=== PATIENT | male | born 1935 | race Caucasian/White ===

== ENCOUNTER → 2023-03-07 10:00 | Inpatient (IN) | payer MEDICAID, SELFPAY ==
[2022-01-11] MEDS: SENNOSIDES 1 TAB TABLET 2 TAB PO ×2 (07:31→19:17)
[2022-01-11] MEDS: ACETAMINOPHEN 650 MG TABLET ER 1300 MG PO ×2 (07:31→15:21)
[2022-01-11] MEDS: LEVOTHYROXINE SODIUM 150 MCG TABLET PO (07:37)
[2022-01-11 09:24] VITALS: TEMP 35.8; O2SAT 96
[2022-01-11 09:25] VITALS: BP 148/81; PULSE 68; RESP 22; TEMP 35.8; O2SAT 96
--- NOTE | 2022-01-11 13:28 | PC.NURSE ---
Bath/Skin: Skin assessed, no issues noted at this time. Skin warm, dry, intact. Lotion applied.
[2022-01-11] MEDS: MELATONIN 3 MG TABLET PO (19:15)
[2022-01-12] MEDS: LEVOTHYROXINE SODIUM 150 MCG TABLET PO (07:36)
[2022-01-12] MEDS: ACETAMINOPHEN 650 MG TABLET ER 1300 MG PO ×2 (07:37→16:47)
[2022-01-12] MEDS: SENNOSIDES 1 TAB TABLET 2 TAB PO ×2 (07:38→20:22)
[2022-01-12 10:00] VITALS: TEMP 36.3; O2SAT 94
[2022-01-12] MEDS: MELATONIN 3 MG TABLET PO (20:21)
[2022-01-12] MEDS: NYSTATIN POWDER 1 APPLIC TOPICAL (21:23)
[2022-01-13] MEDS: ACETAMINOPHEN 650 MG TABLET ER 1300 MG PO ×2 (07:25→15:19)
[2022-01-13] MEDS: LEVOTHYROXINE SODIUM 150 MCG TABLET PO (07:25)
[2022-01-13] MEDS: NYSTATIN POWDER 1 APPLIC TOPICAL ×2 (07:26→19:24)
[2022-01-13] MEDS: SENNOSIDES 1 TAB TABLET 2 TAB PO ×2 (07:26→19:24)
[2022-01-13 10:00] VITALS: TEMP 36; O2SAT 96
--- NOTE | 2022-01-13 10:59 | PC.PHA ---
Pharmacy Review ~ Patient continues on levothyroxine with recent MD note of plan for TSH level. Scheduled acetaminophen for pain.
[2022-01-13] MEDS: MELATONIN 3 MG TABLET PO (19:24)
[2022-01-14] MEDS: SENNOSIDES 1 TAB TABLET 2 TAB PO ×2 (07:18→19:09)
[2022-01-14] MEDS: LEVOTHYROXINE SODIUM 150 MCG TABLET PO (07:18)
[2022-01-14] MEDS: ACETAMINOPHEN 650 MG TABLET ER 1300 MG PO ×2 (07:18→15:05)
[2022-01-14] MEDS: NYSTATIN POWDER 1 APPLIC TOPICAL ×2 (07:18→19:09)
[2022-01-14 10:00] VITALS: TEMP 36.6; O2SAT 95
[2022-01-14] MEDS: MELATONIN 3 MG TABLET PO (19:09)
[2022-01-15] MEDS: LEVOTHYROXINE SODIUM 150 MCG TABLET PO (06:54)
[2022-01-15] MEDS: NYSTATIN POWDER 1 APPLIC TOPICAL ×2 (08:15→19:09)
[2022-01-15] MEDS: ACETAMINOPHEN 650 MG TABLET ER 1300 MG PO ×2 (08:15→15:07)
[2022-01-15] MEDS: SENNOSIDES 1 TAB TABLET 2 TAB PO ×2 (08:16→19:09)
[2022-01-15 10:00] VITALS: TEMP 36.5; O2SAT 95
--- NOTE | 2022-01-15 12:51 | PC.NURSE ---
Bath Update: After three attempts and encouragements resident refused scheduled 2nd bath.
[2022-01-15] MEDS: MELATONIN 3 MG TABLET PO (19:08)
[2022-01-16] MEDS: LEVOTHYROXINE SODIUM 150 MCG TABLET PO (06:58)
[2022-01-16] MEDS: ACETAMINOPHEN 650 MG TABLET ER 1300 MG PO ×2 (07:01→14:58)
[2022-01-16] MEDS: NYSTATIN POWDER 1 APPLIC TOPICAL ×2 (07:01→19:10)
[2022-01-16] MEDS: SENNOSIDES 1 TAB TABLET 2 TAB PO ×2 (07:01→19:11)
[2022-01-16 10:00] VITALS: TEMP 36.9; O2SAT 97
[2022-01-16] MEDS: MELATONIN 3 MG TABLET PO (19:10)
[2022-01-17] MEDS: LEVOTHYROXINE SODIUM 150 MCG TABLET PO (07:29)
[2022-01-17] MEDS: SENNOSIDES 1 TAB TABLET 2 TAB PO ×2 (07:29→19:10)
[2022-01-17] MEDS: ACETAMINOPHEN 650 MG TABLET ER 1300 MG PO ×2 (07:29→15:10)
[2022-01-17] MEDS: NYSTATIN POWDER 1 APPLIC TOPICAL (07:30)
[2022-01-17 10:00] VITALS: TEMP 36.4; O2SAT 94
--- NOTE | 2022-01-17 10:21 | PC.NURSE ---
Skin: (R) groin redness resolved. Put on the CELL TUBER HAND to change Nystatin powder to PRN.
[2022-01-17] MEDS: MELATONIN 3 MG TABLET PO (19:10)
--- NOTE | 2022-01-18 01:16 | PC.NURSE ---
Week #1- Care Plan problems - reviewed, no changes or additions made. Resident sleeps through the night. Staff set him up with a grape juice every night that he drinks on own through out the night. will occasionally ask for a warm blanket. Receives scheduled Tylenol 1300mg Bid.
[2022-01-18] MEDS: ACETAMINOPHEN 650 MG TABLET ER 1300 MG PO ×2 (07:33→16:02)
[2022-01-18] MEDS: LEVOTHYROXINE SODIUM 150 MCG TABLET PO (07:33)
[2022-01-18] MEDS: SENNOSIDES 1 TAB TABLET 2 TAB PO ×2 (07:34→19:13)
[2022-01-18 13:22] VITALS: TEMP 36.4; O2SAT 95
--- NOTE | 2022-01-18 14:35 | PC.NURSE ---
Week 1: Care plan problems 1-19 reviewed. Temporary care plan reviewed. No changes made. One staff assist required for dressing, grooming, hygiene and oral care. No changes in eating habits. Continues on regular diet. Able to feed self. Pain summary: No complaints of pain in past month. Continues on Tylenol 1300mg PO BID.
[2022-01-18 19:08] VITALS: BP 119/81; PULSE 67; RESP 12; TEMP 36.7; O2SAT 91
[2022-01-18] MEDS: MELATONIN 3 MG TABLET PO (19:13)
[2022-01-19] MEDS: ACETAMINOPHEN 650 MG TABLET ER 1300 MG PO ×2 (07:32→16:54)
[2022-01-19] MEDS: LEVOTHYROXINE SODIUM 150 MCG TABLET PO (07:32)
[2022-01-19] MEDS: SENNOSIDES 1 TAB TABLET 2 TAB PO ×2 (07:33→19:21)
[2022-01-19 10:31] VITALS: TEMP 36.4; O2SAT 96
--- NOTE | 2022-01-19 11:04 | PC.NURSE ---
Fall Risk Assessment: Orientation? Intermittent confusion Falls in the last quarter? None Ambulation/Elimination status? Ambulatory, continent Vision status? None Gait/balance? Requires assistive device High risk meds? 1-2 taken in past 7 days Diseases/fall risk? 1-2 present Total Score: 9 - low fall risk
[2022-01-19 14:01] VITALS: BMI 28.1
[2022-01-19] MEDS: NYSTATIN POWDER 1 APPLIC TOPICAL (19:21)
[2022-01-19] MEDS: MELATONIN 3 MG TABLET PO (19:21)
[2022-01-20] MEDS: NYSTATIN POWDER 1 APPLIC TOPICAL (07:21)
[2022-01-20] MEDS: SENNOSIDES 1 TAB TABLET 2 TAB PO ×2 (07:21→19:09)
[2022-01-20] MEDS: LEVOTHYROXINE SODIUM 150 MCG TABLET PO (07:21)
[2022-01-20] MEDS: ACETAMINOPHEN 650 MG TABLET ER 1300 MG PO ×2 (07:21→15:34)
[2022-01-20 10:31] VITALS: TEMP 36.6; O2SAT 94
--- NOTE | 2022-01-20 12:08 | REH.OT ---
Hot liquid assessment Due to patient's cognitive impairments, hot liquids should only be consumed at a table.
--- NOTE | 2022-01-20 12:27 | PC.NURSE ---
Order: Nystatin powder changed to BID PRN by Arturo ODELL.
[2022-01-20] MEDS: MELATONIN 3 MG TABLET PO (19:09)
[2022-01-21] MEDS: ACETAMINOPHEN 650 MG TABLET ER 1300 MG PO ×2 (07:20→15:37)
[2022-01-21] MEDS: SENNOSIDES 1 TAB TABLET 2 TAB PO ×2 (07:20→19:21)
[2022-01-21] MEDS: LEVOTHYROXINE SODIUM 150 MCG TABLET PO (07:20)
[2022-01-21 08:39] LABS: Thyroid Stimulating Hormone* 0.215 uIU/mL (0.270-4.20)
[2022-01-21 10:00] VITALS: TEMP 36.8; O2SAT 96
--- NOTE | 2022-01-21 10:05 | PC.NURSE ---
Podiatry: Resident seen by In House Curriculum Facilitator on 01/20/22.
--- NOTE | 2022-01-21 10:50 | PC.NURSE ---
TSH/Order: TSH result reviewed by Dr. Collier. Order: D/C any future TSH orders if any, decrease Synthroid to 137 mcg daily, check TSH on 2021.
[2022-01-21] MEDS: MELATONIN 3 MG TABLET PO (19:21)
[2022-01-22] MEDS: LEVOTHYROXINE 25 MCG TABLET 137 MCG PO (07:02)
[2022-01-22] MEDS: ACETAMINOPHEN 650 MG TABLET ER 1300 MG PO ×2 (07:46→16:09)
[2022-01-22] MEDS: SENNOSIDES 1 TAB TABLET 2 TAB PO ×2 (07:46→19:41)
[2022-01-22 10:00] VITALS: TEMP 36.8; O2SAT 95
[2022-01-22] MEDS: MELATONIN 3 MG TABLET PO (19:41)
[2022-01-23] MEDS: LEVOTHYROXINE 25 MCG TABLET 137 MCG PO (06:53)
[2022-01-23] MEDS: SENNOSIDES 1 TAB TABLET 2 TAB PO ×2 (07:09→19:16)
[2022-01-23] MEDS: ACETAMINOPHEN 650 MG TABLET ER 1300 MG PO ×2 (07:09→15:38)
[2022-01-23 10:00] VITALS: TEMP 36.6; O2SAT 96
[2022-01-23] MEDS: MELATONIN 3 MG TABLET PO (19:16)
[2022-01-24] MEDS: LEVOTHYROXINE 25 MCG TABLET 137 MCG PO (07:27)
[2022-01-24] MEDS: SENNOSIDES 1 TAB TABLET 2 TAB PO ×2 (08:33→19:26)
[2022-01-24] MEDS: ACETAMINOPHEN 650 MG TABLET ER 1300 MG PO ×2 (08:33→15:43)
[2022-01-24 10:51] VITALS: TEMP 36.1; O2SAT 95
[2022-01-24] MEDS: MELATONIN 3 MG TABLET PO (19:26)
--- NOTE | 2022-01-25 03:19 | PC.NURSE ---
Week #2---care plan problems #20-29 reviewed. No changes made. Nothing added to temporary care plan. Remains independent with bed mobility, transfers, and ambulation at [facility]. Uses top siderails and a walker for assist. Falls---no falls this past month. Remains a low fall risk according to assessment done on 01/19/22.
[2022-01-25] MEDS: SENNOSIDES 1 TAB TABLET 2 TAB PO ×2 (07:34→19:06)
[2022-01-25] MEDS: LEVOTHYROXINE 25 MCG TABLET 137 MCG PO (07:34)
[2022-01-25] MEDS: ACETAMINOPHEN 650 MG TABLET ER 1300 MG PO ×2 (07:34→15:08)
--- NOTE | 2022-01-25 08:56 | PC.NURSE ---
Week 2 - care plan items 20-29 reviewed. No changes made. No additions to temporary care plan. Resident independent with ambulation using 4ww in room and hallways, bed mobility, and transfers. Fall: No falls for the previous months. Low fall risk according to assessment done on 01/19/22.
[2022-01-25 10:24] VITALS: BP 87/56; PULSE 65; RESP 24; TEMP 36.3; O2SAT 92
--- NOTE | 2022-01-25 13:00 | PC.NURSE ---
CARE CONFERENCE: Nursing, Activities, Dietary and Social Service team present. present via phone. asked that resident not be present. Reviewed ADLS, transfers and mobility. Resident has been more accepting of ADL assistance since last CC. She would like to have him bathed twice weekly. Continues to be reminded that it is time to brush teeth, shave, and change his clothes each morning/evening. Resident is independent with transfers, bed mobility and ambulation. Use of walker. Reminders needed to use. High fall risk. Resident can become easily agitated and becomes fixated on topics such as how much he pays for his room, or why his does not live with him. May need to redirect. Resident has dementia. Resident likes to eat breakfast in his room. Will choose if he wants to come out for lunch or dinner. Resident has been coming out more frequently for activities the past 3 months. Especially enjoys bingo. He also enjoys watching baseball games on the TV in his room. is happy to hear this. Nursing gives all medications. declines a copy of medi Care plan reviewed and updated. POLST reviewed. Is DNR/DNI. Uses no restraints. Does use 2 side rails up to assist with positioning. Vulnerability- is at risk for being harmed due to weakness and balance. No plans for discharge. No questions/concerns at this time. Staff updated with new plan of care.
--- NOTE | 2022-01-25 14:11 | PC.SOCIAL ---
Resident's care conference was held today. Resident's spouse Louann attended via phone with all members of the team present. Louann and staff have noticed an increase in resident's confusion and memory. Louann states resident's long-term memory has now been affected and resident does not remember his siblings anymore. Resident has been coming out for more activities and is changing clothes for staff, which Louann is thrilled about. Louann is pleased that resident still remembers to call her every day at 5pm to chat. No s/s of depression noted resident's mood remains stable.
[2022-01-25] MEDS: MELATONIN 3 MG TABLET PO (19:06)
[2022-01-25 23:00] VITALS: TEMP 36.5; O2SAT 96
[2022-01-26] MEDS: LEVOTHYROXINE 25 MCG TABLET 137 MCG PO (07:31)
[2022-01-26] MEDS: ACETAMINOPHEN 650 MG TABLET ER 1300 MG PO ×2 (07:31→16:18)
[2022-01-26] MEDS: SENNOSIDES 1 TAB TABLET 2 TAB PO ×2 (07:31→19:48)
[2022-01-26 09:54] VITALS: TEMP 36.2; O2SAT 96
[2022-01-26] MEDS: MELATONIN 3 MG TABLET PO (19:48)
[2022-01-26 22:08] VITALS: TEMP 36.2; O2SAT 98
[2022-01-26 23:00] VITALS: TEMP 36.4; O2SAT 94
[2022-01-27] MEDS: LEVOTHYROXINE 25 MCG TABLET 137 MCG PO (06:35)
[2022-01-27 07:00] VITALS: TEMP 36.6; O2SAT 95
[2022-01-27] MEDS: ACETAMINOPHEN 650 MG TABLET ER 1300 MG PO ×2 (07:34→15:11)
[2022-01-27] MEDS: SENNOSIDES 1 TAB TABLET 2 TAB PO ×2 (07:34→19:40)
[2022-01-27 16:40] VITALS: TEMP 36.7; O2SAT 96
[2022-01-27 19:29] LABS: SARS PCR* Negative SARS-CoV-2 (Negative)
[2022-01-27] MEDS: MELATONIN 3 MG TABLET PO (19:40)
[2022-01-27 23:00] VITALS: TEMP 36.6; O2SAT 94
[2022-01-28] MEDS: LEVOTHYROXINE 25 MCG TABLET 137 MCG PO (06:44)
[2022-01-28 07:00] VITALS: TEMP 36.6; O2SAT 96
[2022-01-28] MEDS: SENNOSIDES 1 TAB TABLET 2 TAB PO ×2 (07:58→19:01)
[2022-01-28] MEDS: ACETAMINOPHEN 650 MG TABLET ER 1300 MG PO ×2 (07:58→15:18)
--- NOTE | 2022-01-28 14:32 | PC.NURSE ---
Change in dinning seat: Resident C/O current sitting position at the dinning room, and want a change. According to him, he is not comfortable with sitting at the same table with resident in room number 223. This software writer has assigned new table to him: he is to be seated at the dinner table with residents in room # 236 and #221. He appears to be pleased with that. IN TUBE CONVERSION TECHNICIAN is updated.
[2022-01-28 17:22] VITALS: TEMP 36.3; O2SAT 99
[2022-01-28] MEDS: MELATONIN 3 MG TABLET PO (19:01)
[2022-01-28 23:00] VITALS: TEMP 36.4; O2SAT 97
[2022-01-29] MEDS: LEVOTHYROXINE 25 MCG TABLET 137 MCG PO (06:46)
[2022-01-29 07:00] VITALS: TEMP 36.8; O2SAT 95
[2022-01-29] MEDS: ACETAMINOPHEN 650 MG TABLET ER 1300 MG PO ×2 (08:37→15:16)
[2022-01-29] MEDS: SENNOSIDES 1 TAB TABLET 2 TAB PO ×2 (08:37→19:03)
[2022-01-29 17:05] VITALS: TEMP 36.2; O2SAT 97
[2022-01-29] MEDS: MELATONIN 3 MG TABLET PO (19:03)
[2022-01-30 00:01] VITALS: TEMP 36.4; O2SAT 96
[2022-01-30] MEDS: LEVOTHYROXINE 25 MCG TABLET 137 MCG PO (06:53)
[2022-01-30 07:00] VITALS: TEMP 36.9; O2SAT 95
[2022-01-30] MEDS: SENNOSIDES 1 TAB TABLET 2 TAB PO ×2 (07:42→19:31)
[2022-01-30] MEDS: ACETAMINOPHEN 650 MG TABLET ER 1300 MG PO ×2 (07:42→15:33)
[2022-01-30 16:54] VITALS: TEMP 36.8; O2SAT 95
[2022-01-30] MEDS: MELATONIN 3 MG TABLET PO (19:31)
[2022-01-30 23:00] VITALS: TEMP 36.6; O2SAT 94
[2022-01-31] MEDS: ACETAMINOPHEN 650 MG TABLET ER 1300 MG PO ×2 (07:42→15:37)
[2022-01-31] MEDS: LEVOTHYROXINE 25 MCG TABLET 137 MCG PO (07:42)
[2022-01-31] MEDS: SENNOSIDES 1 TAB TABLET 2 TAB PO ×2 (07:42→19:18)
[2022-01-31 12:26] VITALS: TEMP 36.6; O2SAT 95
[2022-01-31 15:00] VITALS: TEMP 36.6; O2SAT 95
[2022-01-31 17:17] LABS: SARS PCR* Negative SARS-CoV-2 (Negative)
[2022-01-31] MEDS: MELATONIN 3 MG TABLET PO (19:18)
[2022-01-31 23:00] VITALS: TEMP 36.6; O2SAT 95
--- NOTE | 2022-02-01 02:59 | PC.NURSE ---
Week #3---care plan problems #30-39 reviewed. No changes made. Nothing added to temporary care plan. Remains independent with toileting at [facility]. Ambulates to with walker. Manages own clothing and pericares. Skin---no issues at this time.
[2022-02-01] MEDS: LEVOTHYROXINE 25 MCG TABLET 137 MCG PO (07:04)
[2022-02-01] MEDS: ACETAMINOPHEN 650 MG TABLET ER 1300 MG PO (07:05)
[2022-02-01] MEDS: SENNOSIDES 1 TAB TABLET 2 TAB PO ×2 (07:05→19:02)
[2022-02-01 11:02] VITALS: TEMP 36.3; O2SAT 95
--- NOTE | 2022-02-01 11:03 | PC.NURSE ---
Skin assessment - No bruising or redness noted on skin. Skin is intact, dry, warm, and appropriate color. Pt had no concerns.
--- NOTE | 2022-02-01 11:45 | PC.NURSE ---
Week #3: Care plan problems 30-39 and temporary care plan reviewed. No changes made. Nothing added to temporary care plan. Resident is independent with toileting and is continent of bowel and bladder. Wears pull ups. Pads, tyshawn cares, clothing adjustment managed by self. Ambulates to the bathroom with a walker. Skin: No issues at this time. Skin is checked routinely during baths.
[2022-02-01 17:08] VITALS: BP 120/71; PULSE 51; RESP 14; TEMP 36.4; O2SAT 93
[2022-02-01] MEDS: MELATONIN 3 MG TABLET PO (19:02)
[2022-02-01 23:00] VITALS: TEMP 36.5; O2SAT 94
[2022-02-02] MEDS: SENNOSIDES 1 TAB TABLET 2 TAB PO ×2 (07:32→19:16)
[2022-02-02] MEDS: LEVOTHYROXINE 25 MCG TABLET 137 MCG PO (07:32)
[2022-02-02] MEDS: ACETAMINOPHEN 650 MG TABLET ER 1300 MG PO ×2 (07:32→15:18)
[2022-02-02 10:20] VITALS: TEMP 36.8; O2SAT 96
--- NOTE | 2022-02-02 12:45 | PC.PHA ---
Pharmacy Review ~ Patient had decrease of levothyroxine in January based on TSH result from 01/21/22. Pain regimen of acetaminophen 1300 mg bid continues and is only pain medication ordered.
[2022-02-02] MEDS: MELATONIN 3 MG TABLET PO (19:16)
[2022-02-02 21:20] VITALS: TEMP 36.3; O2SAT 96
[2022-02-02 23:00] VITALS: TEMP 36.4; O2SAT 95
[2022-02-03 07:00] VITALS: TEMP 36.6; O2SAT 95
[2022-02-03] MEDS: SENNOSIDES 1 TAB TABLET 2 TAB PO ×2 (07:08→19:22)
[2022-02-03] MEDS: ACETAMINOPHEN 650 MG TABLET ER 1300 MG PO ×2 (07:08→15:33)
[2022-02-03] MEDS: LEVOTHYROXINE 25 MCG TABLET 137 MCG PO (07:08)
--- NOTE | 2022-02-03 10:03 | PC.SPIRITC ---
Complaint Coordinator provided visit for support and connection.
[2022-02-03] MEDS: MELATONIN 3 MG TABLET PO (19:22)
[2022-02-03 21:14] VITALS: TEMP 36.3; O2SAT 97
[2022-02-03 23:00] VITALS: TEMP 36.6; O2SAT 96
[2022-02-04 07:00] VITALS: TEMP 36.6; O2SAT 96
[2022-02-04] MEDS: SENNOSIDES 1 TAB TABLET 2 TAB PO ×2 (07:19→19:13)
[2022-02-04] MEDS: LEVOTHYROXINE 25 MCG TABLET 137 MCG PO (07:19)
[2022-02-04] MEDS: ACETAMINOPHEN 650 MG TABLET ER 1300 MG PO (07:19)
[2022-02-04 18:31] VITALS: TEMP 36.9; O2SAT 96
[2022-02-04] MEDS: MELATONIN 3 MG TABLET PO (19:13)
[2022-02-04 23:00] VITALS: TEMP 36.4; O2SAT 94
[2022-02-05] MEDS: LEVOTHYROXINE 25 MCG TABLET 137 MCG PO (06:51)
[2022-02-05 07:00] VITALS: TEMP 36.8; O2SAT 96
[2022-02-05] MEDS: ACETAMINOPHEN 650 MG TABLET ER 1300 MG PO ×2 (08:35→15:00)
[2022-02-05] MEDS: SENNOSIDES 1 TAB TABLET 2 TAB PO ×2 (08:35→19:11)
[2022-02-05 16:33] VITALS: TEMP 36.7; O2SAT 95
[2022-02-05] MEDS: MELATONIN 3 MG TABLET PO (19:11)
[2022-02-05 23:00] VITALS: TEMP 36.4; O2SAT 93
[2022-02-06] MEDS: LEVOTHYROXINE 25 MCG TABLET 137 MCG PO (06:56)
[2022-02-06 07:00] VITALS: TEMP 36.8; O2SAT 95
[2022-02-06] MEDS: ACETAMINOPHEN 650 MG TABLET ER 1300 MG PO ×2 (08:49→15:34)
[2022-02-06] MEDS: SENNOSIDES 1 TAB TABLET 2 TAB PO ×2 (08:50→19:00)
[2022-02-06] MEDS: MELATONIN 3 MG TABLET PO (19:00)
[2022-02-06 20:17] VITALS: TEMP 36.8; O2SAT 96
[2022-02-06 23:00] VITALS: TEMP 35.9; O2SAT 92
[2022-02-07] MEDS: SENNOSIDES 1 TAB TABLET 2 TAB PO ×2 (07:21→19:31)
[2022-02-07] MEDS: ACETAMINOPHEN 650 MG TABLET ER 1300 MG PO ×2 (07:21→16:49)
[2022-02-07] MEDS: LEVOTHYROXINE 25 MCG TABLET 137 MCG PO (07:21)
[2022-02-07 10:23] VITALS: TEMP 36.2; O2SAT 95
[2022-02-07 13:03] LABS: SARS PCR* Negative SARS-CoV-2 (Negative)
[2022-02-07 15:00] VITALS: TEMP 36.5; O2SAT 96
[2022-02-07] MEDS: MELATONIN 3 MG TABLET PO (19:31)
[2022-02-07 23:00] VITALS: TEMP 36.6; O2SAT 94
--- NOTE | 2022-02-08 03:24 | PC.NURSE ---
Week #4---care plan problems #40+ reviewed. No changes made. Nothing added to temporary care plan. Can use call light for needs. No changes noted in hearing, vision, or orientation. No behavior problems at [facility]. Sleeps well. Is on no psychotropic meds.
--- NOTE | 2022-02-08 07:25 | PC.NURSE ---
Week #4: Care plan problems 40-119 and temporary care plan reviewed. No changes made. No additions to temporary care plan. No change in communication, hearing, vision, or orientation. Is able to make his needs known and use the call light. Wears glasses. Has hearing impairment, no hearing device. Has cognitive deficits d/t dementia. Chronic health condition stable. Does not self administer medications. Behavior/Mood: No issues. Is on no psychotropic medications.
[2022-02-08] MEDS: SENNOSIDES 1 TAB TABLET 2 TAB PO ×2 (08:17→19:17)
[2022-02-08] MEDS: LEVOTHYROXINE 25 MCG TABLET 137 MCG PO (08:17)
[2022-02-08] MEDS: ACETAMINOPHEN 650 MG TABLET ER 1300 MG PO ×2 (08:17→15:59)
[2022-02-08 10:07] VITALS: BP 138/73; PULSE 60; RESP 14; TEMP 36.2; O2SAT 95
[2022-02-08 15:00] VITALS: TEMP 36.6; O2SAT 97
[2022-02-08] MEDS: MELATONIN 3 MG TABLET PO (19:17)
[2022-02-08 21:11] VITALS: BP 132/76; PULSE 65; RESP 18; TEMP 36.6; O2SAT 97
[2022-02-08 23:00] VITALS: TEMP 36.4; O2SAT 95
[2022-02-09] MEDS: LEVOTHYROXINE 25 MCG TABLET 137 MCG PO (08:00)
[2022-02-09] MEDS: ACETAMINOPHEN 650 MG TABLET ER 1300 MG PO ×2 (08:54→16:05)
[2022-02-09] MEDS: SENNOSIDES 1 TAB TABLET 2 TAB PO ×2 (08:54→19:18)
[2022-02-09 11:07] VITALS: TEMP 36.6; O2SAT 95
[2022-02-09] MEDS: MELATONIN 3 MG TABLET PO (19:18)
[2022-02-10] MEDS: SENNOSIDES 1 TAB TABLET 2 TAB PO ×2 (07:18→19:08)
[2022-02-10] MEDS: LEVOTHYROXINE 25 MCG TABLET 137 MCG PO (07:18)
[2022-02-10] MEDS: ACETAMINOPHEN 650 MG TABLET ER 1300 MG PO ×2 (07:18→15:33)
[2022-02-10 08:00] VITALS: TEMP 36.7; O2SAT 95
[2022-02-10] MEDS: MELATONIN 3 MG TABLET PO (19:08)
[2022-02-11] MEDS: LEVOTHYROXINE 25 MCG TABLET 137 MCG PO (07:15)
[2022-02-11] MEDS: ACETAMINOPHEN 650 MG TABLET ER 1300 MG PO ×2 (07:16→15:34)
[2022-02-11] MEDS: SENNOSIDES 1 TAB TABLET 2 TAB PO ×2 (07:16→19:30)
[2022-02-11 08:00] VITALS: TEMP 36.6; O2SAT 97
[2022-02-11] MEDS: MELATONIN 3 MG TABLET PO (19:30)
[2022-02-12] MEDS: LEVOTHYROXINE 25 MCG TABLET 137 MCG PO (07:47)
[2022-02-12] MEDS: ACETAMINOPHEN 650 MG TABLET ER 1300 MG PO ×2 (07:48→16:05)
[2022-02-12] MEDS: SENNOSIDES 1 TAB TABLET 2 TAB PO ×2 (07:48→19:14)
[2022-02-12 11:10] VITALS: TEMP 36.7; O2SAT 91
[2022-02-12] MEDS: MELATONIN 3 MG TABLET PO (19:14)
[2022-02-13] MEDS: ACETAMINOPHEN 650 MG TABLET ER 1300 MG PO ×2 (07:02→15:27)
[2022-02-13] MEDS: LEVOTHYROXINE 25 MCG TABLET 137 MCG PO (07:02)
[2022-02-13] MEDS: SENNOSIDES 1 TAB TABLET 2 TAB PO ×2 (07:02→19:14)
[2022-02-13 09:50] VITALS: TEMP 36.4; O2SAT 94
[2022-02-13] MEDS: MELATONIN 3 MG TABLET PO (19:13)
[2022-02-14] MEDS: LEVOTHYROXINE 25 MCG TABLET 137 MCG PO (07:22)
[2022-02-14] MEDS: SENNOSIDES 1 TAB TABLET 2 TAB PO ×2 (07:23→20:03)
[2022-02-14] MEDS: ACETAMINOPHEN 650 MG TABLET ER 1300 MG PO ×2 (07:23→15:23)
[2022-02-14 13:40] VITALS: TEMP 36.5; O2SAT 96
[2022-02-14] MEDS: MELATONIN 3 MG TABLET PO (20:03)
--- NOTE | 2022-02-15 04:55 | PC.NURSE ---
Week #1---care plan problems #1-19 reviewed. No changes made. Nothing added to temporary care plan. Staff cont. to leave res. a glass of grape juice that he drinks per self during the noc. Pain---no c/o's pain at [facility]. Continues to receive Tylenol 1300 mg BID for pain control.
[2022-02-15] MEDS: LEVOTHYROXINE 25 MCG TABLET 137 MCG PO (06:30)
--- NOTE | 2022-02-15 06:57 | PC.NURSE ---
Week 1 Charting - Pt made no reports of pain within last 31 days. Pt has 1,300 mg Acetaminophen BID scheduled at 08:00 and 15:00. No PRN pain medications listed in MAR. No changes were made to temporary care plan. Resident requires staff assistance with all ADLs related to weakness and cognitive impairment as evidenced by lack of call light use/not waiting for assistance at times. Resident has history of refusing cares, including brushing his teeth and changing his clothing. Goal is for resident to be glean and groomed with combed hair, brushed teeth, and clean clothes daily. ADL assistance needed for wellbeing and safety of resident. One staff assist required fro dressing, grooming, hygiene, 2x/week bathing, nail care, and full linen change on bath day. encourage resident to participate in ADL as much as possible and praise accomplishments. Staff should strongly encourage bathing to resident. Staff to assist resident with set up of oral hygiene cares and encouragement of participation in dental cares. If needed, staff to assist with brushing and flossing for adequate care. refuses to take pt to dentist d/t agitation. Potential for nutrition alteration d/t dementia dx. Hx of inadequate oral intake. Resident currently eating well and maintaining weight. Staff provides set up assistance with meals. Ptential michele dehydration d/t pt strong reliance on hot cocoa. Sugar free hot chocolate should be used. Pt is safe to handle hot liquids independently. Regular diet. Staff to assist fluids throughout the day. RDN to monitor weight and maintain weight of 207.2 lbs +/-5%.
[2022-02-15] MEDS: SENNOSIDES 1 TAB TABLET 2 TAB PO ×2 (07:46→19:06)
[2022-02-15] MEDS: ACETAMINOPHEN 650 MG TABLET ER 1300 MG PO ×2 (07:46→15:41)
[2022-02-15 08:00] VITALS: TEMP 36.4; O2SAT 95
[2022-02-15 10:47] VITALS: BP 112/69; PULSE 78; RESP 18; TEMP 36.4; O2SAT 95
[2022-02-15 17:15] VITALS: BP 122/82; PULSE 53; RESP 16; TEMP 36.4; O2SAT 100
[2022-02-15] MEDS: MELATONIN 3 MG TABLET PO (19:06)
[2022-02-15 20:00] VITALS: TEMP 36.4; O2SAT 98
[2022-02-16] MEDS: SENNOSIDES 1 TAB TABLET 2 TAB PO ×2 (07:32→19:05)
[2022-02-16] MEDS: LEVOTHYROXINE 25 MCG TABLET 137 MCG PO (07:32)
[2022-02-16] MEDS: ACETAMINOPHEN 650 MG TABLET ER 1300 MG PO ×2 (07:32→15:15)
--- NOTE | 2022-02-16 09:19 | PC.NURSE ---
Janet: Resident refused stating I don't need it. Left ankle only had trace edema & resident does elevate extremities. On CASE PICKER book.
[2022-02-16 09:53] VITALS: TEMP 36.4; O2SAT 98
[2022-02-16] MEDS: MELATONIN 3 MG TABLET PO (19:04)
[2022-02-17] MEDS: LEVOTHYROXINE 25 MCG TABLET 137 MCG PO (07:55)
[2022-02-17 08:00] VITALS: TEMP 36.6; O2SAT 98
[2022-02-17] MEDS: ACETAMINOPHEN 650 MG TABLET ER 1300 MG PO ×2 (08:19→15:25)
[2022-02-17] MEDS: SENNOSIDES 1 TAB TABLET 2 TAB PO ×2 (08:19→19:09)
--- NOTE | 2022-02-17 14:56 | PC.NURSE ---
Order: Josh Brown discontinued my Yuan Morris NP d/t resident refusal and only trace amount of edema noted in LE's.
[2022-02-17] MEDS: MELATONIN 3 MG TABLET PO (19:09)
[2022-02-18] MEDS: LEVOTHYROXINE 25 MCG TABLET 137 MCG PO (07:18)
[2022-02-18] MEDS: ACETAMINOPHEN 650 MG TABLET ER 1300 MG PO ×2 (07:18→15:40)
[2022-02-18] MEDS: SENNOSIDES 1 TAB TABLET 2 TAB PO ×2 (07:18→19:23)
[2022-02-18 08:00] VITALS: TEMP 36.8; O2SAT 96
[2022-02-18] MEDS: MELATONIN 3 MG TABLET PO (19:23)
[2022-02-19] MEDS: LEVOTHYROXINE 25 MCG TABLET 137 MCG PO (07:32)
[2022-02-19] MEDS: ACETAMINOPHEN 650 MG TABLET ER 1300 MG PO ×2 (07:32→15:31)
[2022-02-19] MEDS: SENNOSIDES 1 TAB TABLET 2 TAB PO ×2 (07:32→19:17)
[2022-02-19 08:00] VITALS: TEMP 36.8; O2SAT 95
[2022-02-19] MEDS: MELATONIN 3 MG TABLET PO (19:17)
[2022-02-20] MEDS: LEVOTHYROXINE 25 MCG TABLET 137 MCG PO (07:10)
[2022-02-20] MEDS: SENNOSIDES 1 TAB TABLET 2 TAB PO ×2 (07:10→19:08)
[2022-02-20] MEDS: ACETAMINOPHEN 650 MG TABLET ER 1300 MG PO ×2 (07:10→16:02)
[2022-02-20 08:00] VITALS: TEMP 36.6; O2SAT 95
[2022-02-20] MEDS: MELATONIN 3 MG TABLET PO (19:08)
[2022-02-21] MEDS: SENNOSIDES 1 TAB TABLET 2 TAB PO ×2 (07:33→19:30)
[2022-02-21] MEDS: LEVOTHYROXINE 25 MCG TABLET 137 MCG PO (07:33)
[2022-02-21] MEDS: ACETAMINOPHEN 650 MG TABLET ER 1300 MG PO ×2 (07:33→16:50)
[2022-02-21 10:05] VITALS: TEMP 36.8; O2SAT 97
[2022-02-21 14:39] VITALS: TEMP 36.7; O2SAT 96
[2022-02-21 15:00] VITALS: TEMP 36.7; O2SAT 96
[2022-02-21] MEDS: MELATONIN 3 MG TABLET PO (19:30)
[2022-02-21 23:00] VITALS: TEMP 36.6; O2SAT 96
--- NOTE | 2022-02-22 03:57 | PC.NURSE ---
Week #2---care plan problems #20-29 reviewed. No changes made. Nothing added to temporary care plan. Remains independent with bed mobility, transfers, and ambulation at [facility]. Uses top siderails and a walker for assist. Falls---no falls this past month. Is a low fall risk according to assessment done on 01/19/22.
[2022-02-22] MEDS: LEVOTHYROXINE 25 MCG TABLET 137 MCG PO (07:45)
[2022-02-22] MEDS: SENNOSIDES 1 TAB TABLET 2 TAB PO ×2 (07:45→19:18)
[2022-02-22] MEDS: ACETAMINOPHEN 650 MG TABLET ER 1300 MG PO ×2 (07:45→15:03)
[2022-02-22 10:24] VITALS: BP 97/64; PULSE 64; TEMP 37.2; O2SAT 94
[2022-02-22 17:12] VITALS: TEMP 36; O2SAT 100
[2022-02-22] MEDS: MELATONIN 3 MG TABLET PO (19:17)
[2022-02-22 23:00] VITALS: TEMP 37.7; O2SAT 93
--- NOTE | 2022-02-23 01:04 | PC.NURSE ---
Status---When Covid surveillance VS checked, noted res. temp was 100. O2 sat 93% on room air. Sounds hoarse and congested. Is coughing. Covid swab obtained and sent to lab at 0030.
[2022-02-23 01:19] LABS: SARS PCR* POSITIVE SARS-CoV-2 (Negative)
--- NOTE | 2022-02-23 01:29 | PC.NURSE ---
Status---Lab called at 0121 and reported that res. is positive for Covid. Will implement isolation precautions.
[2022-02-23] MEDS: SENNOSIDES 1 TAB TABLET 2 TAB PO ×2 (07:19→19:25)
[2022-02-23] MEDS: ACETAMINOPHEN 650 MG TABLET ER 1300 MG PO ×2 (07:19→15:32)
[2022-02-23] MEDS: LEVOTHYROXINE 25 MCG TABLET 137 MCG PO (07:19)
--- NOTE | 2022-02-23 09:00 | PC.NURSE ---
FAMILY UPDATE: Spoke to this morning about resident testing positive for COVID. would like resident to receive Paxlovid. FLEXOGRAPHIC PRESS OPERATOR to be updated.
--- NOTE | 2022-02-23 09:29 | PC.NURSE ---
PUBLIC POLICY MANAGER ORDER: [facility] lab. Paxlovid 150-100mg: give all 3 tabs PO BID x 5 days. No medication interactions.
[2022-02-23 09:47] VITALS: TEMP 36.8; O2SAT 98
[2022-02-23 10:10] LABS: Chloride* 103 mmol/L (96-114); Sodium* 136 mmol/L (135-149)
[2022-02-23 10:13] LABS: Blood Urea Nitrogen* 20 mg/dL (7-30); Carbon Dioxide* 26 mmol/L (20-32); Creatinine* 1.4 mg/dL (0.5-1.5); Estimated Glomerular Filt Rate 49 ml/min
[2022-02-23 10:14] LABS: Calcium* 8.7 mg/dL (8.4-10.6); Glucose* 194 mg/dL (60-115)
[2022-02-23] MEDS: MELATONIN 3 MG TABLET PO (19:25)
[2022-02-23 21:14] VITALS: TEMP 36.8; O2SAT 92
[2022-02-23 21:30] VITALS: BP 122/70; PULSE 60; RESP 18; TEMP 36.8; O2SAT 92
--- NOTE | 2022-02-23 21:31 | PC.NURSE ---
Status Per 1:1 DORENE: Resident was incontinent of urine at the beginning of shift but, other than that was normal. VS WNL. Last Vital Signs Temp 98.2 F 02/23/22 21:30 Pulse 60 02/23/22 21:30 Resp 18 02/23/22 21:30 BP 122/70 02/23/22 21:30 Pulse Ox 92 02/23/22 21:30 O2 Del Method 02/22/22 10:24
[2022-02-23 23:00] VITALS: TEMP 36.8; O2SAT 93
--- NOTE | 2022-02-24 05:13 | PC.NURSE ---
Status---Slept most of the noc in his recliner. 1:1 caregivers report he seemed confused. Did get assist to the BR. Drank some cocoa and grape juice. Temp 98.2. O2 sat 93%
[2022-02-24] MEDS: LEVOTHYROXINE 25 MCG TABLET 137 MCG PO (07:51)
[2022-02-24] MEDS: ACETAMINOPHEN 650 MG TABLET ER 1300 MG PO ×2 (07:51→16:14)
[2022-02-24] MEDS: SENNOSIDES 1 TAB TABLET 2 TAB PO ×2 (07:52→19:18)
[2022-02-24 10:25] VITALS: BP 110/52; PULSE 68; RESP 16; TEMP 37.3; O2SAT 91
--- NOTE | 2022-02-24 13:48 | PC.NURSE ---
Status: Up per his usual self. Chest congestion noted. T-99.1 BP-110/52 P-68 RR-18 02 sat 91%.
[2022-02-24 17:15] VITALS: TEMP 36.6; O2SAT 96
[2022-02-24] MEDS: MELATONIN 3 MG TABLET PO (19:18)
[2022-02-24 23:00] VITALS: TEMP 36.7; O2SAT 91
[2022-02-25 00:38] VITALS: BP 119/60; PULSE 54; RESP 20; TEMP 36.7; O2SAT 91
--- NOTE | 2022-02-25 05:08 | PC.NURSE ---
Resident appeared to rest well during noc. VSS. Afebrile. Ambulates independently in room.
[2022-02-25] MEDS: LEVOTHYROXINE 25 MCG TABLET 137 MCG PO (07:51)
[2022-02-25] MEDS: ACETAMINOPHEN 650 MG TABLET ER 1300 MG PO ×2 (07:51→14:56)
[2022-02-25] MEDS: SENNOSIDES 1 TAB TABLET 2 TAB PO ×2 (07:51→19:16)
[2022-02-25 13:43] VITALS: TEMP 36.4; O2SAT 96
[2022-02-25] MEDS: MELATONIN 3 MG TABLET PO (19:16)
[2022-02-25 21:13] VITALS: TEMP 36.4; O2SAT 95
[2022-02-26 00:41] VITALS: TEMP 36.3; O2SAT 94
[2022-02-26] MEDS: ACETAMINOPHEN 650 MG TABLET ER 1300 MG PO ×2 (07:47→15:02)
[2022-02-26] MEDS: LEVOTHYROXINE 25 MCG TABLET 137 MCG PO (07:47)
[2022-02-26 10:35] VITALS: TEMP 36.3; O2SAT 97
[2022-02-26 15:00] VITALS: TEMP 36.4; O2SAT 98
[2022-02-26] MEDS: MELATONIN 3 MG TABLET PO (18:08)
[2022-02-26] MEDS: SENNOSIDES 1 TAB TABLET 2 TAB PO (18:08)
[2022-02-26 23:00] VITALS: TEMP 36.3; O2SAT 93
[2022-02-27] MEDS: LEVOTHYROXINE 25 MCG TABLET 137 MCG PO (06:50)
[2022-02-27] MEDS: ACETAMINOPHEN 650 MG TABLET ER 1300 MG PO ×2 (07:04→15:05)
[2022-02-27 11:16] VITALS: TEMP 36.1; O2SAT 96
[2022-02-27 15:00] VITALS: TEMP 36.3; O2SAT 91
[2022-02-27] MEDS: MELATONIN 3 MG TABLET PO (19:07)
[2022-02-27] MEDS: SENNOSIDES 1 TAB TABLET 2 TAB PO (19:07)
[2022-02-27 23:00] VITALS: TEMP 36.8; O2SAT 94
[2022-02-28] MEDS: LEVOTHYROXINE 25 MCG TABLET 137 MCG PO (07:56)
[2022-02-28] MEDS: ACETAMINOPHEN 650 MG TABLET ER 1300 MG PO ×2 (07:56→15:39)
[2022-02-28] MEDS: SENNOSIDES 1 TAB TABLET 2 TAB PO ×2 (07:56→20:06)
[2022-02-28 10:22] VITALS: TEMP 36.3; O2SAT 92
[2022-02-28 16:33] VITALS: TEMP 36.4; O2SAT 94
[2022-02-28] MEDS: MELATONIN 3 MG TABLET PO (20:06)
--- NOTE | 2022-02-28 21:47 | PC.NURSE ---
Med pass for PM shift 1600 meds given by Lexii Perdomo RN. 1999 meds given by Vanessa Gottlieb RN.
[2022-02-28 23:00] VITALS: TEMP 36.4; O2SAT 94
[2022-03-01] VITALS: BP 112/58; PULSE 55; RESP 18; TEMP 36.4; O2SAT 94
--- NOTE | 2022-03-01 04:29 | PC.NURSE ---
Week #3---care plan problems #30-39 reviewed. No changes made. Temporary care plan updated re: currently Covid positive. In isolation with 1:1 caregivers. Did receive a course of Paxlovid. Remains independent with toileting at [facility]. Ambulates with walker to the BR. Manages own clothing and pericares. Skin---no issues at this time.
[2022-03-01] MEDS: LEVOTHYROXINE 25 MCG TABLET 137 MCG PO (07:59)
[2022-03-01] MEDS: ACETAMINOPHEN 650 MG TABLET ER 1300 MG PO ×2 (07:59→15:14)
[2022-03-01] MEDS: SENNOSIDES 1 TAB TABLET 2 TAB PO ×2 (08:00→19:19)
--- NOTE | 2022-03-01 08:06 | PC.NURSE ---
Medications given to Clementina Servin LPN to administer.
[2022-03-01 14:03] VITALS: TEMP 36.4; O2SAT 93
--- NOTE | 2022-03-01 18:21 | PC.NURSE ---
Week #3- Care plan problems #30-39 reviewed.?No changes made. Temporary care plan updated re:?d/t testing positive for COVID, is on isolation with 1:1 caregivers, along with a course of Paxlovid.?Remains independent with toileting. Is continent of bowel and bladder. Ambulates with walker to the BR.?Manages own clothing and pericares. Skin- No issues at this time.
[2022-03-01 18:47] VITALS: BP 130/75; PULSE 61; RESP 16; TEMP 36.6; O2SAT 95
[2022-03-01 18:50] VITALS: TEMP 36.6; O2SAT 95
[2022-03-01] MEDS: MELATONIN 3 MG TABLET PO (19:19)
[2022-03-01 23:00] VITALS: TEMP 36.3; O2SAT 96
[2022-03-02] MEDS: LEVOTHYROXINE 25 MCG TABLET 137 MCG PO (07:57)
[2022-03-02] MEDS: SENNOSIDES 1 TAB TABLET 2 TAB PO ×2 (07:57→18:50)
[2022-03-02] MEDS: ACETAMINOPHEN 650 MG TABLET ER 1300 MG PO ×2 (07:57→15:10)
--- NOTE | 2022-03-02 08:00 | PC.NURSE ---
Medications given to Dallin Perdomo RN to administer.
[2022-03-02 09:36] VITALS: TEMP 36.3; O2SAT 92
--- NOTE | 2022-03-02 16:56 | PC.NURSE ---
Meds administered by Kaiser Harley RN.
[2022-03-02] MEDS: MELATONIN 3 MG TABLET PO (18:50)
[2022-03-02 20:42] VITALS: TEMP 36.1; O2SAT 97
[2022-03-02 23:00] VITALS: TEMP 36.4; O2SAT 93
[2022-03-03] MEDS: SENNOSIDES 1 TAB TABLET 2 TAB PO ×2 (07:51→19:00)
[2022-03-03] MEDS: ACETAMINOPHEN 650 MG TABLET ER 1300 MG PO ×2 (07:51→15:29)
[2022-03-03] MEDS: LEVOTHYROXINE 25 MCG TABLET 137 MCG PO (07:51)
--- NOTE | 2022-03-03 08:30 | PC.NURSE ---
Medications given to Twan Walker RN to administer.
[2022-03-03 09:50] VITALS: TEMP 36.9; O2SAT 97
[2022-03-03] MEDS: MELATONIN 3 MG TABLET PO (19:00)
[2022-03-03] MEDS: guaiFENesin 100 MG/ML CUP PO (20:06)
[2022-03-03 22:17] VITALS: TEMP 36.4; O2SAT 93
[2022-03-03 23:00] VITALS: TEMP 36.4; O2SAT 92
[2022-03-04 07:00] VITALS: TEMP 36.8; O2SAT 94
[2022-03-04] MEDS: ACETAMINOPHEN 650 MG TABLET ER 1300 MG PO ×2 (07:55→15:18)
[2022-03-04] MEDS: SENNOSIDES 1 TAB TABLET 2 TAB PO ×2 (07:55→19:01)
[2022-03-04] MEDS: LEVOTHYROXINE 25 MCG TABLET 137 MCG PO (07:55)
[2022-03-04 15:00] VITALS: TEMP 36.6; O2SAT 95
--- NOTE | 2022-03-04 18:07 | PC.NURSE ---
Resident PM Tylenol administered at 1518 by Lisbeth Walker RN
[2022-03-04] MEDS: MELATONIN 3 MG TABLET PO (19:01)
--- NOTE | 2022-03-04 21:28 | PC.NURSE ---
HS meds admin by Lisbeth Walker RN
[2022-03-04 23:00] VITALS: TEMP 36.6; O2SAT 95
[2022-03-05 07:00] VITALS: TEMP 36.7; O2SAT 95
[2022-03-05] MEDS: SENNOSIDES 1 TAB TABLET 2 TAB PO ×2 (07:30→19:00)
[2022-03-05] MEDS: LEVOTHYROXINE 25 MCG TABLET 137 MCG PO (07:30)
[2022-03-05] MEDS: ACETAMINOPHEN 650 MG TABLET ER 1300 MG PO ×2 (07:30→15:31)
[2022-03-05] MEDS: MELATONIN 3 MG TABLET PO (19:00)
[2022-03-05 21:30] VITALS: TEMP 37.1; O2SAT 95
[2022-03-05 23:00] VITALS: TEMP 36.5; O2SAT 96
[2022-03-06] MEDS: SENNOSIDES 1 TAB TABLET 2 TAB PO ×2 (07:36→19:04)
[2022-03-06] MEDS: LEVOTHYROXINE 25 MCG TABLET 137 MCG PO (07:36)
[2022-03-06] MEDS: ACETAMINOPHEN 650 MG TABLET ER 1300 MG PO ×2 (07:36→15:48)
[2022-03-06 10:44] VITALS: TEMP 36.8; O2SAT 95
[2022-03-06 17:01] VITALS: TEMP 36.4; O2SAT 98
[2022-03-06] MEDS: MELATONIN 3 MG TABLET PO (19:04)
[2022-03-06 23:00] VITALS: TEMP 36.3; O2SAT 95
[2022-03-07] MEDS: LEVOTHYROXINE 25 MCG TABLET 137 MCG PO (07:12)
[2022-03-07] MEDS: ACETAMINOPHEN 650 MG TABLET ER 1300 MG PO ×2 (08:39→15:17)
[2022-03-07] MEDS: SENNOSIDES 1 TAB TABLET 2 TAB PO ×2 (08:39→19:19)
[2022-03-07 13:48] VITALS: TEMP 36.6; O2SAT 94
[2022-03-07 15:00] VITALS: TEMP 36.6; O2SAT 95
[2022-03-07] MEDS: MELATONIN 3 MG TABLET PO (19:19)
--- NOTE | 2022-03-07 20:54 | PC.NURSE ---
Med Concerns: Resident motioned swallowing his scheduled Acetaminophen 1000 mg when it was administered at 1500. About 30 minutes after and upon pain follow-up assessment, the 2 pills were found on the dinning area floor behind where resident was sitting playing Bingo. The pills appeared wet, and were destroyed in the Med Room. STORM who was present at the nurse station at that time, was notified.
[2022-03-07 23:00] VITALS: TEMP 36.9; O2SAT 96
--- NOTE | 2022-03-08 02:43 | PC.NURSE ---
Week #4---care plan problems #40+ reviewed. No changes made. Temporary care plan updated re: is off isolation now. Uses call light for needs. Usually just to request a warm blanket. No changes noted in hearing, vision, or orientation. No behavior problems at [facility]. Sleeps well. Is on no psychotropic meds.
[2022-03-08] MEDS: LEVOTHYROXINE 25 MCG TABLET 137 MCG PO (06:37)
[2022-03-08 07:00] VITALS: BP 119/68; PULSE 53; RESP 20; TEMP 36.3; O2SAT 97; BMI 27.8
--- NOTE | 2022-03-08 07:30 | PC.NURSE ---
Week #4: Care plan problems 40+ and temporary care plan reviewed. No changes made. Nothing added to temporary care plan. No changes noted in communication, hearing, vision, or orientation.Resident does communicate needs and use the call light. Wears glasses. Has hearing difficulty, no hearing device. Has moderate cognitive impairment d/t dementia. Had Covid & is now off isolation. Staff administers medications. Mood/Behavior: No issues. Is on no psychotropic medications.
[2022-03-08] MEDS: ACETAMINOPHEN 650 MG TABLET ER 1300 MG PO ×2 (07:52→16:04)
[2022-03-08] MEDS: SENNOSIDES 1 TAB TABLET 2 TAB PO ×2 (07:52→19:13)
[2022-03-08 17:23] VITALS: TEMP 36.3; O2SAT 97
[2022-03-08] MEDS: MELATONIN 3 MG TABLET PO (19:13)
[2022-03-08 23:00] VITALS: TEMP 36.6; O2SAT 95
[2022-03-09] MEDS: LEVOTHYROXINE 25 MCG TABLET 137 MCG PO (07:30)
[2022-03-09] MEDS: SENNOSIDES 1 TAB TABLET 2 TAB PO ×2 (07:30→19:13)
[2022-03-09] MEDS: ACETAMINOPHEN 650 MG TABLET ER 1300 MG PO ×2 (07:30→15:36)
[2022-03-09 10:32] VITALS: TEMP 36.2; O2SAT 95
[2022-03-09] MEDS: MELATONIN 3 MG TABLET PO (19:13)
[2022-03-09 20:38] VITALS: TEMP 36.4; O2SAT 96
[2022-03-09 23:00] VITALS: TEMP 36.7; O2SAT 96
[2022-03-10] MEDS: ACETAMINOPHEN 650 MG TABLET ER 1300 MG PO ×2 (07:38→15:47)
[2022-03-10] MEDS: SENNOSIDES 1 TAB TABLET 2 TAB PO ×2 (07:38→19:01)
[2022-03-10] MEDS: LEVOTHYROXINE 25 MCG TABLET 137 MCG PO (07:38)
[2022-03-10 10:01] VITALS: TEMP 36.2; O2SAT 95
[2022-03-10] MEDS: MELATONIN 3 MG TABLET PO (19:01)
[2022-03-10 21:14] VITALS: TEMP 36.2; O2SAT 95
[2022-03-10 23:00] VITALS: TEMP 36.6; O2SAT 100
[2022-03-11 07:00] VITALS: TEMP 36.8; O2SAT 95
[2022-03-11] MEDS: ACETAMINOPHEN 650 MG TABLET ER 1300 MG PO ×2 (07:47→15:45)
[2022-03-11] MEDS: LEVOTHYROXINE 25 MCG TABLET 137 MCG PO (07:47)
[2022-03-11] MEDS: SENNOSIDES 1 TAB TABLET 2 TAB PO ×2 (07:47→18:59)
[2022-03-11] MEDS: MELATONIN 3 MG TABLET PO (18:59)
[2022-03-11 20:47] VITALS: TEMP 36.5; O2SAT 99
[2022-03-11 23:00] VITALS: TEMP 36.6; O2SAT 94
[2022-03-12] MEDS: LEVOTHYROXINE 25 MCG TABLET 137 MCG PO (06:58)
[2022-03-12 07:00] VITALS: TEMP 35.9; O2SAT 96
[2022-03-12] MEDS: SENNOSIDES 1 TAB TABLET 2 TAB PO ×2 (07:01→19:08)
[2022-03-12] MEDS: ACETAMINOPHEN 650 MG TABLET ER 1300 MG PO ×2 (07:01→15:09)
[2022-03-12 16:54] VITALS: TEMP 36.1; O2SAT 98
[2022-03-12] MEDS: MELATONIN 3 MG TABLET PO (19:08)
[2022-03-13 00:16] VITALS: TEMP 36.6; O2SAT 96
[2022-03-13 07:00] VITALS: TEMP 36.4; O2SAT 94
[2022-03-13] MEDS: ACETAMINOPHEN 650 MG TABLET ER 1300 MG PO ×2 (07:40→15:44)
[2022-03-13] MEDS: LEVOTHYROXINE 25 MCG TABLET 137 MCG PO (07:40)
[2022-03-13] MEDS: SENNOSIDES 1 TAB TABLET 2 TAB PO ×2 (07:40→19:18)
[2022-03-13 17:16] VITALS: TEMP 36.4; O2SAT 96
[2022-03-13] MEDS: MELATONIN 3 MG TABLET PO (19:18)
[2022-03-13 23:00] VITALS: TEMP 36.2; O2SAT 95
[2022-03-14 07:00] VITALS: TEMP 36.1; O2SAT 94
[2022-03-14] MEDS: LEVOTHYROXINE 25 MCG TABLET 137 MCG PO (07:57)
[2022-03-14] MEDS: SENNOSIDES 1 TAB TABLET 2 TAB PO ×2 (07:57→19:19)
[2022-03-14] MEDS: ACETAMINOPHEN 650 MG TABLET ER 1300 MG PO ×2 (07:57→15:44)
[2022-03-14 15:00] VITALS: TEMP 36.6; O2SAT 95
[2022-03-14] MEDS: MELATONIN 3 MG TABLET PO (19:19)
[2022-03-14 23:00] VITALS: TEMP 36.4; O2SAT 96
[2022-03-15] MEDS: LEVOTHYROXINE 25 MCG TABLET 137 MCG PO (07:36)
[2022-03-15] MEDS: ACETAMINOPHEN 650 MG TABLET ER 1300 MG PO ×2 (07:37→15:17)
[2022-03-15] MEDS: SENNOSIDES 1 TAB TABLET 2 TAB PO ×2 (07:37→19:25)
[2022-03-15 10:10] VITALS: TEMP 36.5; O2SAT 94; BMI 27.9
--- NOTE | 2022-03-15 11:48 | PC.SPIRITC ---
Iron Miner Blasting provided visit for support and connection.
[2022-03-15 18:42] VITALS: BP 91/55; PULSE 55; RESP 16; TEMP 36.5; O2SAT 94
[2022-03-15] MEDS: MELATONIN 3 MG TABLET PO (19:25)
[2022-03-15 23:00] VITALS: TEMP 36.6; O2SAT 97
[2022-03-16] MEDS: SENNOSIDES 1 TAB TABLET 2 TAB PO ×2 (07:02→19:14)
[2022-03-16] MEDS: ACETAMINOPHEN 650 MG TABLET ER 1300 MG PO ×2 (07:02→15:14)
[2022-03-16] MEDS: LEVOTHYROXINE 25 MCG TABLET 137 MCG PO (07:02)
[2022-03-16 09:15] VITALS: TEMP 36.3; O2SAT 95
[2022-03-16] MEDS: MELATONIN 3 MG TABLET PO (19:14)
[2022-03-16 21:26] VITALS: TEMP 36.3; O2SAT 93
[2022-03-16 23:00] VITALS: TEMP 36.3; O2SAT 93
[2022-03-17] MEDS: SENNOSIDES 1 TAB TABLET 2 TAB PO ×2 (07:45→19:30)
[2022-03-17] MEDS: ACETAMINOPHEN 650 MG TABLET ER 1300 MG PO ×2 (07:45→15:14)
[2022-03-17] MEDS: LEVOTHYROXINE 25 MCG TABLET 137 MCG PO (07:45)
[2022-03-17 10:42] VITALS: TEMP 36.3; O2SAT 96
[2022-03-17 18:19] VITALS: TEMP 36.4; O2SAT 98
[2022-03-17] MEDS: MELATONIN 3 MG TABLET PO (19:30)
[2022-03-17 23:00] VITALS: TEMP 36.3; O2SAT 95
[2022-03-18 07:00] VITALS: TEMP 36.6; O2SAT 95
[2022-03-18] MEDS: ACETAMINOPHEN 650 MG TABLET ER 1300 MG PO (07:13)
[2022-03-18] MEDS: LEVOTHYROXINE 25 MCG TABLET 137 MCG PO (07:13)
[2022-03-18] MEDS: SENNOSIDES 1 TAB TABLET 2 TAB PO ×2 (07:13→19:04)
[2022-03-18 08:50] LABS: Thyroid Stimulating Hormone* 0.965 uIU/mL (0.270-4.20)
--- NOTE | 2022-03-18 13:09 | PC.NURSE ---
TSH: Result reviewed by Dr. Collier. No new order.
[2022-03-18] MEDS: MELATONIN 3 MG TABLET PO (19:04)
[2022-03-19] MEDS: LEVOTHYROXINE 25 MCG TABLET 137 MCG PO (06:56)
[2022-03-19 08:00] VITALS: TEMP 36.7; O2SAT 95
[2022-03-19] MEDS: SENNOSIDES 1 TAB TABLET 2 TAB PO ×2 (08:08→19:15)
[2022-03-19] MEDS: ACETAMINOPHEN 650 MG TABLET ER 1300 MG PO ×2 (08:08→15:10)
[2022-03-19] MEDS: MELATONIN 3 MG TABLET PO (19:15)
[2022-03-20] MEDS: LEVOTHYROXINE 25 MCG TABLET 137 MCG PO (06:55)
[2022-03-20] MEDS: SENNOSIDES 1 TAB TABLET 2 TAB PO ×2 (07:28→19:13)
[2022-03-20] MEDS: ACETAMINOPHEN 650 MG TABLET ER 1300 MG PO ×2 (07:28→15:36)
[2022-03-20 08:00] VITALS: TEMP 36.6; O2SAT 96
[2022-03-20] MEDS: MELATONIN 3 MG TABLET PO (19:13)
[2022-03-21] MEDS: LEVOTHYROXINE 25 MCG TABLET 137 MCG PO (06:48)
[2022-03-21] MEDS: SENNOSIDES 1 TAB TABLET 2 TAB PO ×2 (07:55→19:29)
[2022-03-21] MEDS: ACETAMINOPHEN 650 MG TABLET ER 1300 MG PO ×2 (07:55→15:23)
[2022-03-21 08:00] VITALS: TEMP 36.4; O2SAT 95
[2022-03-21] MEDS: MELATONIN 3 MG TABLET PO (19:28)
--- NOTE | 2022-03-22 04:08 | PC.NURSE ---
Week #1---care plan problems #1-19 reviewed. No changes made. Temporary care plan updated re: has recovered from Covid 19. Staff cont. to leave res. a glass of grape juice that he drinks himself during the noc. Pain---no c/o's pain at noc this past month. Continues to receive Tylenol 1300 mg BID for pain control.
[2022-03-22 07:00] VITALS: BMI 28.3
--- NOTE | 2022-03-22 07:51 | PC.NURSE ---
Week #1: Care plan problems 1-19 and temporary care plan reviewed. No changes made. Nothing added to temporary care plan. Needs one staff assist with dressing, grooming, oral cares and bathing. Is able to participate as much as he can. Is independent with feeding. Is on regular diet. No problems noted with chewing or swallowing. Pain: No pain this past month. Receives Tylenol 1000mg BID for pain control. Is able to verbalize need for pain.
[2022-03-22] MEDS: LEVOTHYROXINE 25 MCG TABLET 137 MCG PO (07:54)
[2022-03-22] MEDS: SENNOSIDES 1 TAB TABLET 2 TAB PO ×2 (07:55→19:27)
[2022-03-22] MEDS: ACETAMINOPHEN 650 MG TABLET ER 1300 MG PO ×2 (07:55→15:55)
[2022-03-22 08:00] VITALS: TEMP 36.4; O2SAT 95
[2022-03-22 09:26] VITALS: BP 89/50; PULSE 92; RESP 16; TEMP 36.4; O2SAT 95
[2022-03-22] MEDS: MELATONIN 3 MG TABLET PO (19:27)
[2022-03-23 08:00] VITALS: TEMP 37; O2SAT 97
[2022-03-23] MEDS: ACETAMINOPHEN 650 MG TABLET ER 1300 MG PO ×2 (08:12→16:04)
[2022-03-23] MEDS: SENNOSIDES 1 TAB TABLET 2 TAB PO ×2 (08:12→19:08)
[2022-03-23] MEDS: LEVOTHYROXINE 25 MCG TABLET 137 MCG PO (08:12)
[2022-03-23] MEDS: MELATONIN 3 MG TABLET PO (19:08)
[2022-03-24] MEDS: SENNOSIDES 1 TAB TABLET 2 TAB PO ×2 (07:21→19:35)
[2022-03-24] MEDS: LEVOTHYROXINE 25 MCG TABLET 137 MCG PO (07:21)
[2022-03-24] MEDS: ACETAMINOPHEN 650 MG TABLET ER 1300 MG PO ×2 (07:21→15:13)
[2022-03-24 08:00] VITALS: TEMP 36.4; O2SAT 98
[2022-03-24] MEDS: MELATONIN 3 MG TABLET PO (19:35)
[2022-03-25] MEDS: ACETAMINOPHEN 650 MG TABLET ER 1300 MG PO ×2 (07:21→15:33)
[2022-03-25] MEDS: LEVOTHYROXINE 25 MCG TABLET 137 MCG PO (07:21)
[2022-03-25] MEDS: SENNOSIDES 1 TAB TABLET 2 TAB PO ×2 (07:21→19:37)
[2022-03-25 10:34] VITALS: TEMP 36.4; O2SAT 95
[2022-03-25] MEDS: MELATONIN 3 MG TABLET PO (19:37)
[2022-03-26] MEDS: ACETAMINOPHEN 650 MG TABLET ER 1300 MG PO ×2 (07:35→15:08)
[2022-03-26] MEDS: LEVOTHYROXINE 25 MCG TABLET 137 MCG PO (07:35)
[2022-03-26] MEDS: SENNOSIDES 1 TAB TABLET 2 TAB PO ×2 (07:35→19:11)
[2022-03-26 10:25] VITALS: TEMP 36.3; O2SAT 96
[2022-03-26] MEDS: MELATONIN 3 MG TABLET PO (19:11)
[2022-03-27] MEDS: LEVOTHYROXINE 25 MCG TABLET 137 MCG PO (06:41)
[2022-03-27 08:00] VITALS: TEMP 36.4; O2SAT 95
[2022-03-27] MEDS: SENNOSIDES 1 TAB TABLET 2 TAB PO ×2 (08:03→19:28)
[2022-03-27] MEDS: ACETAMINOPHEN 650 MG TABLET ER 1300 MG PO ×2 (08:03→15:26)
[2022-03-27] MEDS: MELATONIN 3 MG TABLET PO (19:28)
[2022-03-28] MEDS: ACETAMINOPHEN 650 MG TABLET ER 1300 MG PO ×2 (07:05→16:20)
[2022-03-28] MEDS: SENNOSIDES 1 TAB TABLET 2 TAB PO ×2 (07:05→19:18)
[2022-03-28] MEDS: LEVOTHYROXINE 25 MCG TABLET 137 MCG PO (07:05)
[2022-03-28 08:00] VITALS: TEMP 36.3; O2SAT 95
[2022-03-28] MEDS: MELATONIN 3 MG TABLET PO (19:18)
--- NOTE | 2022-03-29 03:56 | PC.NURSE ---
Week #2: Fall summery: Resident is a low fall risk per assessment done on 01/19/22. Has had no falls in the last month. Temporary care plan reviewed, no change. Care plan reviewed, no change. Bed mobility: Resident is independent for bed mobility and transfers, uses a four wheeled walker.
[2022-03-29 07:00] VITALS: BMI 28.8
[2022-03-29] MEDS: ACETAMINOPHEN 650 MG TABLET ER 1300 MG PO ×2 (07:57→15:26)
[2022-03-29] MEDS: LEVOTHYROXINE 25 MCG TABLET 137 MCG PO (07:57)
[2022-03-29] MEDS: SENNOSIDES 1 TAB TABLET 2 TAB PO ×2 (07:57→19:02)
[2022-03-29 08:00] VITALS: TEMP 36.3; O2SAT 90
[2022-03-29 09:00] VITALS: BP 145/65; PULSE 68; RESP 20; TEMP 36.3; O2SAT 90
--- NOTE | 2022-03-29 09:39 | PC.NURSE ---
Skin Check - Warm, dry, intact, normal color. Few shallow scratches on lower back - appears pt scratched himself. Asked pt if area was itchy, pt denied. +1 Edema BLE feet - baseline. Pt knows to elevate feet at rest.
--- NOTE | 2022-03-29 11:00 | PC.NURSE ---
Week #2: Care plan problems - and temporary care plan reviewed. No changes made. Nothing added to temporary care plan. Resident is independent with ambulation in room & hallways using 4ww, transfers, chair/bed mobility. Top side rails up to aid for positioning. Fall: No falls this past month. Continues to be a low fall risk.
[2022-03-29 18:56] VITALS: BP 96/59; PULSE 63; RESP 14; TEMP 36.1; O2SAT 100
[2022-03-29] MEDS: MELATONIN 3 MG TABLET PO (19:02)
[2022-03-30] MEDS: LEVOTHYROXINE 25 MCG TABLET 137 MCG PO (07:50)
[2022-03-30] MEDS: SENNOSIDES 1 TAB TABLET 2 TAB PO ×2 (07:51→19:19)
[2022-03-30] MEDS: ACETAMINOPHEN 650 MG TABLET ER 1300 MG PO ×2 (07:51→15:31)
[2022-03-30 08:00] VITALS: TEMP 36.3; O2SAT 94
[2022-03-30] MEDS: MELATONIN 3 MG TABLET PO (19:19)
[2022-03-31] MEDS: SENNOSIDES 1 TAB TABLET 2 TAB PO ×2 (07:42→19:05)
[2022-03-31] MEDS: ACETAMINOPHEN 650 MG TABLET ER 1300 MG PO ×2 (07:42→15:30)
[2022-03-31] MEDS: LEVOTHYROXINE 25 MCG TABLET 137 MCG PO (07:42)
[2022-03-31 10:36] VITALS: TEMP 36.3; O2SAT 93
[2022-03-31] MEDS: MELATONIN 3 MG TABLET PO (19:05)
[2022-04-01] MEDS: SENNOSIDES 1 TAB TABLET 2 TAB PO ×2 (10:52→19:16)
[2022-04-01] MEDS: LEVOTHYROXINE 25 MCG TABLET 137 MCG PO (10:52)
[2022-04-01] MEDS: ACETAMINOPHEN 650 MG TABLET ER 1300 MG PO (10:52)
[2022-04-01 13:43] VITALS: TEMP 36; O2SAT 93
[2022-04-01] MEDS: MELATONIN 3 MG TABLET PO (19:16)
[2022-04-02] MEDS: LEVOTHYROXINE 25 MCG TABLET 137 MCG PO (06:56)
[2022-04-02 08:00] VITALS: TEMP 36.8; O2SAT 95
[2022-04-02] MEDS: SENNOSIDES 1 TAB TABLET 2 TAB PO ×2 (08:27→19:21)
[2022-04-02] MEDS: ACETAMINOPHEN 650 MG TABLET ER 1300 MG PO ×2 (08:27→15:05)
[2022-04-02] MEDS: MELATONIN 3 MG TABLET PO (19:21)
[2022-04-03] MEDS: LEVOTHYROXINE 25 MCG TABLET 137 MCG PO (07:23)
[2022-04-03] MEDS: SENNOSIDES 1 TAB TABLET 2 TAB PO ×2 (07:23→19:42)
[2022-04-03] MEDS: ACETAMINOPHEN 650 MG TABLET ER 1300 MG PO ×2 (07:23→15:34)
[2022-04-03 08:00] VITALS: TEMP 36.8; O2SAT 95
[2022-04-03] MEDS: MELATONIN 3 MG TABLET PO (19:42)
[2022-04-04] MEDS: ACETAMINOPHEN 650 MG TABLET ER 1300 MG PO ×2 (07:40→15:36)
[2022-04-04] MEDS: SENNOSIDES 1 TAB TABLET 2 TAB PO ×2 (07:40→19:13)
[2022-04-04] MEDS: LEVOTHYROXINE 25 MCG TABLET 137 MCG PO (07:40)
[2022-04-04 08:00] VITALS: TEMP 36.7; O2SAT 95
[2022-04-04] MEDS: MELATONIN 3 MG TABLET PO (19:13)
--- NOTE | 2022-04-05 01:46 | PC.NURSE ---
Week #3---care plan problems #30-39 reviewed.? No changes made.?Temporary care plan updated . Remains independent with toileting at night.? Ambulates with walker to the BR.? Manages own clothing and pericares. Skin---no issues at this time.
[2022-04-05 07:00] VITALS: BMI 28.8
--- NOTE | 2022-04-05 07:30 | PC.NURSE ---
Week #3: Care plan problems 30-39 and temporary care plan reviewed. No changes made. Nothing added to temporary care plan. Resident is continent of bowel and bladder. Is independent with toileting. Staff assist as needed. Wears own undergarment. Skin: No issues at this time. Skin is checked routinely at bath day.
[2022-04-05] MEDS: LEVOTHYROXINE 25 MCG TABLET 137 MCG PO (07:57)
[2022-04-05] MEDS: ACETAMINOPHEN 650 MG TABLET ER 1300 MG PO ×2 (07:57→15:30)
[2022-04-05] MEDS: SENNOSIDES 1 TAB TABLET 2 TAB PO ×2 (07:57→19:00)
[2022-04-05 08:00] VITALS: BP 134/78; PULSE 63; RESP 14; TEMP 36.3; O2SAT 96
--- NOTE | 2022-04-05 09:45 | PC.NURSE ---
Skin check - No noted skin issues - no areas of redness. Slight edema BLE feet - baseline. Pt said mid-back felt itchy - DORENE applied lotion.
[2022-04-05] MEDS: MELATONIN 3 MG TABLET PO (19:00)
[2022-04-05 21:05] VITALS: TEMP 36.6; O2SAT 97
[2022-04-06 00:56] VITALS: TEMP 36.3; O2SAT 96
[2022-04-06 01:38] VITALS: TEMP 36.3; O2SAT 96
[2022-04-06 07:00] VITALS: TEMP 36.6; O2SAT 95
[2022-04-06] MEDS: ACETAMINOPHEN 650 MG TABLET ER 1300 MG PO ×2 (07:52→15:22)
[2022-04-06] MEDS: LEVOTHYROXINE 25 MCG TABLET 137 MCG PO (07:52)
[2022-04-06] MEDS: SENNOSIDES 1 TAB TABLET 2 TAB PO ×2 (07:52→19:20)
--- NOTE | 2022-04-06 10:01 | PC.PHA ---
Pharmacy Review~ Patient needed Paxlovid in February for Covid-19 treatment. No other changes to his medication regimen thus far in March.
[2022-04-06 15:00] VITALS: TEMP 36.6; O2SAT 95
[2022-04-06] MEDS: MELATONIN 3 MG TABLET PO (19:20)
[2022-04-07 03:17] VITALS: TEMP 36.3; O2SAT 94
[2022-04-07] MEDS: LEVOTHYROXINE 25 MCG TABLET 137 MCG PO (06:43)
[2022-04-07] MEDS: SENNOSIDES 1 TAB TABLET 2 TAB PO ×2 (08:46→20:22)
[2022-04-07] MEDS: ACETAMINOPHEN 650 MG TABLET ER 1300 MG PO ×2 (08:46→15:36)
--- NOTE | 2022-04-07 09:42 | PC.NURSE ---
COVID OUTBREAK TESTING: Resident was excluded from testing d/t recent COVID+ status. Testing will resume after 90 days from positive test result.
[2022-04-07 11:18] VITALS: BMI 28.8
[2022-04-07] MEDS: MELATONIN 3 MG TABLET PO (20:21)
[2022-04-07 20:57] VITALS: TEMP 36.9; O2SAT 97
[2022-04-08 03:55] VITALS: TEMP 36.7; O2SAT 94
[2022-04-08 07:00] VITALS: TEMP 36.7; O2SAT 93
[2022-04-08] MEDS: ACETAMINOPHEN 650 MG TABLET ER 1300 MG PO ×2 (07:14→15:46)
[2022-04-08] MEDS: SENNOSIDES 1 TAB TABLET 2 TAB PO ×2 (07:14→19:03)
[2022-04-08] MEDS: LEVOTHYROXINE 25 MCG TABLET 137 MCG PO (07:14)
[2022-04-08] MEDS: MELATONIN 3 MG TABLET PO (19:03)
[2022-04-08 21:54] VITALS: TEMP 36.2; O2SAT 96
[2022-04-09 01:25] VITALS: TEMP 36.8; O2SAT 97
[2022-04-09 07:00] VITALS: TEMP 36.3; O2SAT 95
[2022-04-09] MEDS: ACETAMINOPHEN 650 MG TABLET ER 1300 MG PO ×2 (07:40→15:25)
[2022-04-09] MEDS: LEVOTHYROXINE 25 MCG TABLET 137 MCG PO (07:40)
[2022-04-09] MEDS: SENNOSIDES 1 TAB TABLET 2 TAB PO ×2 (07:40→19:07)
--- NOTE | 2022-04-09 09:54 | PC.NURSE ---
Skin Check - No areas of concern. Baseline edema of +1 BLE feet.
[2022-04-09 10:13] VITALS: BMI 28.8
[2022-04-09 16:43] VITALS: TEMP 36.6; O2SAT 95
[2022-04-09] MEDS: MELATONIN 3 MG TABLET PO (19:07)
--- NOTE | 2022-04-09 21:24 | PC.NURSE ---
Skin: Resident bumped existing scab on L knee. 2x1cm area open and bleeding. Cleansed with wound yard cleaner and band aid placed.
[2022-04-10 02:39] VITALS: TEMP 36.4; O2SAT 96
[2022-04-10 07:00] VITALS: TEMP 36.4; O2SAT 94
[2022-04-10] MEDS: ACETAMINOPHEN 650 MG TABLET ER 1300 MG PO ×2 (07:42→15:06)
[2022-04-10] MEDS: SENNOSIDES 1 TAB TABLET 2 TAB PO ×2 (07:42→19:23)
[2022-04-10] MEDS: LEVOTHYROXINE 25 MCG TABLET 137 MCG PO (07:42)
[2022-04-10 16:56] VITALS: TEMP 36.6; O2SAT 93
[2022-04-10] MEDS: MELATONIN 3 MG TABLET PO (19:23)
[2022-04-10 23:00] VITALS: TEMP 36.6; O2SAT 94
[2022-04-11 07:00] VITALS: TEMP 36.6; O2SAT 94
[2022-04-11] MEDS: LEVOTHYROXINE 25 MCG TABLET 137 MCG PO (07:53)
[2022-04-11] MEDS: SENNOSIDES 1 TAB TABLET 2 TAB PO ×2 (07:53→19:22)
[2022-04-11] MEDS: ACETAMINOPHEN 650 MG TABLET ER 1300 MG PO ×2 (07:53→16:29)
--- NOTE | 2022-04-11 10:47 | PC.NURSE ---
COVID OUTBREAK TESTING: Resident was excluded from testing d/t recent COVID+ status. Testing will resume after 90 days from positive test result.
--- NOTE | 2022-04-11 12:32 | REH.OT ---
Hot beverage assessment: due to cognitive deficits, the patient should sit at a table when consuming hot beverages.
[2022-04-11 15:00] VITALS: TEMP 36.7; O2SAT 95
[2022-04-11] MEDS: MELATONIN 3 MG TABLET PO (19:22)
--- NOTE | 2022-04-12 01:26 | PC.NURSE ---
Week #4: Mood/behavior: No issue at this time. Is on melatonin 3mg PO HS. No adverse side effects noted. Temporary care plan reviewed, no change. Care plan 40-119 reviewed, no change. Communication: no change in communication, chronic health condition or meds. Can not self admin meds.
[2022-04-12 03:46] VITALS: TEMP 36.7; O2SAT 93
[2022-04-12 07:00] VITALS: TEMP 36.3; O2SAT 95; BMI 28.8
[2022-04-12] MEDS: ACETAMINOPHEN 650 MG TABLET ER 1300 MG PO ×2 (07:41→15:25)
[2022-04-12] MEDS: SENNOSIDES 1 TAB TABLET 2 TAB PO ×2 (07:41→19:03)
[2022-04-12] MEDS: LEVOTHYROXINE 25 MCG TABLET 137 MCG PO (07:41)
--- NOTE | 2022-04-12 13:30 | PC.NURSE ---
CARE CONFERENCE: Nursing, Activities, Dietary, and Social Service team present. present via phone. asked that resident not be present. Reviewed ADLS, transfers and mobility. Resident has been more accepting of ADL assistance since last CC. She would like to continue having him bathed twice weekly. Continues to be reminded by staff that it is time to brush teeth, shave, and change his clothes each morning/evening. Resident has poor dentition, he denies any pain or issues at this time, elects to continue monitoring. Resident receives sugar free hot cocoa. Resident is independent with transfers, bed mobility and ambulation. Use of walker. Reminders needed to use sometimes. High fall risk. Resident can become easily agitated and becomes fixated on topics such as how much he pays for his room, or why his does not live with him. May need to redirect, is usually redirected easily. Resident has dementia. Resident likes to eat breakfast in his room. Will choose if he wants to come out for lunch or dinner. Resident has been coming out frequently for activities. Especially enjoys bingo. He also enjoys watching baseball games on the TV in his room. is happy to hear this. Nursing gives all medications. declines a copy of medication list, care plan reviewed and updated. POLST reviewed. Is DNR/DNI. Uses no restraints.? Does use 2 side rails up to assist with positioning.? Vulnerability- is at risk for being harmed due to weakness and balance. No plans for discharge. No questions/concerns at this time. is happy with his care.
--- NOTE | 2022-04-12 13:35 | PC.SOCIAL ---
Resident Care Conference was held today for resident at 1:00 pm. LTCC team was present (this worker, Carly, Nutrition-Zohreh, and Enrichment-Radha). Resident's , Louann Mccarty, was present via phone. Nursing, Nutrition, and Enrichment all provided updates. Social Work update included resident's mood is stable and there are no concerns with resident regarding mood. Louann reports that she is very happy with the care that is provided to resident.
--- NOTE | 2022-04-12 14:50 | PC.NURSE ---
Week #4: Care plan problems 40+ and temporary care plan reviewed. No changes made. Nothing added to temporary care plan. No changes noted in communication, hearing, vision, or orientation. Resident is able to communicate needs and uses the call light appropriately. Wears glasses. Has hearing difficulty, no hearing device. Has moderate cognitive impairment d/t dementia. Staff administers medications. Mood/Behavior: No concerns at this time. Is on no psychotropic medications.
[2022-04-12 17:01] VITALS: BP 103/59; PULSE 69; RESP 14; TEMP 36.6; O2SAT 94
[2022-04-12] MEDS: MELATONIN 3 MG TABLET PO (19:03)
[2022-04-13 03:29] VITALS: TEMP 36.5; O2SAT 93
[2022-04-13 07:00] VITALS: TEMP 36.5; O2SAT 98
[2022-04-13] MEDS: ACETAMINOPHEN 650 MG TABLET ER 1300 MG PO (07:53)
[2022-04-13] MEDS: SENNOSIDES 1 TAB TABLET 2 TAB PO ×2 (07:53→19:44)
[2022-04-13] MEDS: LEVOTHYROXINE 25 MCG TABLET 137 MCG PO (07:53)
[2022-04-13 15:00] VITALS: TEMP 36.6; O2SAT 96
[2022-04-13] MEDS: MELATONIN 3 MG TABLET PO (19:44)
[2022-04-14 03:30] VITALS: TEMP 37.1; O2SAT 94
[2022-04-14] MEDS: ACETAMINOPHEN 650 MG TABLET ER 1300 MG PO ×2 (08:01→15:12)
[2022-04-14] MEDS: LEVOTHYROXINE 25 MCG TABLET 137 MCG PO (08:01)
[2022-04-14] MEDS: SENNOSIDES 1 TAB TABLET 2 TAB PO ×2 (08:01→19:04)
[2022-04-14 11:14] VITALS: TEMP 36.2; O2SAT 91
--- NOTE | 2022-04-14 14:34 | PC.NURSE ---
ANAMIKA ASSESSMENT: ANAMIKA assessment period was 04/08-04/14. DORENE Food monitoring, ADLs, and Toileting assessments were opened early and closed early. The assessments were not captured in the 7-day lookback--the ANAMIKA on 04/14 was completed using interview of primary NARs and the assessments that were completed early.
[2022-04-14 17:11] VITALS: TEMP 36.4; O2SAT 97
[2022-04-14] MEDS: MELATONIN 3 MG TABLET PO (19:04)
[2022-04-14 22:51] VITALS: TEMP 36.6; O2SAT 97
[2022-04-15 07:00] VITALS: TEMP 36.9; O2SAT 95
[2022-04-15] MEDS: ACETAMINOPHEN 650 MG TABLET ER 1300 MG PO ×2 (07:52→15:53)
[2022-04-15] MEDS: LEVOTHYROXINE 25 MCG TABLET 137 MCG PO (07:52)
[2022-04-15] MEDS: SENNOSIDES 1 TAB TABLET 2 TAB PO ×2 (07:52→19:41)
[2022-04-15 16:54] VITALS: TEMP 36.6; O2SAT 99
[2022-04-15] MEDS: MELATONIN 3 MG TABLET PO (19:41)
[2022-04-16 03:46] VITALS: TEMP 36.4; O2SAT 90
[2022-04-16 07:00] VITALS: TEMP 36.6; O2SAT 96
[2022-04-16] MEDS: ACETAMINOPHEN 650 MG TABLET ER 1300 MG PO ×2 (07:30→16:06)
[2022-04-16] MEDS: SENNOSIDES 1 TAB TABLET 2 TAB PO ×2 (07:30→19:00)
[2022-04-16] MEDS: LEVOTHYROXINE 25 MCG TABLET 137 MCG PO (07:30)
[2022-04-16 15:00] VITALS: TEMP 37.2; O2SAT 96
[2022-04-16] MEDS: MELATONIN 3 MG TABLET PO (19:00)
[2022-04-16 23:00] VITALS: TEMP 36.3; O2SAT 94
[2022-04-17] MEDS: LEVOTHYROXINE 25 MCG TABLET 137 MCG PO (07:53)
[2022-04-17] MEDS: ACETAMINOPHEN 650 MG TABLET ER 1300 MG PO ×2 (07:55→15:59)
[2022-04-17] MEDS: SENNOSIDES 1 TAB TABLET 2 TAB PO ×2 (07:55→19:22)
[2022-04-17 13:04] VITALS: TEMP 36.2; O2SAT 96
[2022-04-17] MEDS: MELATONIN 3 MG TABLET PO (19:22)
[2022-04-17 20:54] VITALS: TEMP 36.4; O2SAT 96
[2022-04-18 02:44] VITALS: TEMP 36.9; O2SAT 93
[2022-04-18 07:00] VITALS: TEMP 36.4; O2SAT 95
[2022-04-18] MEDS: SENNOSIDES 1 TAB TABLET 2 TAB PO ×2 (07:43→19:12)
[2022-04-18] MEDS: LEVOTHYROXINE 25 MCG TABLET 137 MCG PO (07:43)
[2022-04-18] MEDS: ACETAMINOPHEN 650 MG TABLET ER 1300 MG PO ×2 (07:43→16:01)
--- NOTE | 2022-04-18 10:52 | PC.SPIRITC ---
Carlos talked about having hard days sometimes but coping through humor, bingo, puzzles, and baseball. Gospel Singer provided time to process realties and visit for connection and support.
[2022-04-18 15:00] VITALS: TEMP 36.6; O2SAT 95
[2022-04-18] MEDS: MELATONIN 3 MG TABLET PO (19:12)
--- NOTE | 2022-04-19 03:08 | PC.NURSE ---
Week #1---care plan problems #1-19 reviewed.? No changes made.? Temporary care plan reviewed.no changes made. Receives Tylenol 1300 mg BID for pain control and has good control of pain Independent with his cares and uses call light for any assistance. ?
[2022-04-19 04:11] VITALS: TEMP 36.4; O2SAT 97
[2022-04-19 07:00] VITALS: BP 121/70; PULSE 59; RESP 20; TEMP 36.4; O2SAT 98; BMI 28.8
[2022-04-19] MEDS: ACETAMINOPHEN 650 MG TABLET ER 1300 MG PO ×2 (07:49→15:24)
[2022-04-19] MEDS: LEVOTHYROXINE 25 MCG TABLET 137 MCG PO (07:49)
[2022-04-19] MEDS: SENNOSIDES 1 TAB TABLET 2 TAB PO ×2 (07:49→19:11)
--- NOTE | 2022-04-19 09:24 | PC.NURSE ---
Skin check - no areas of concern noted. Skin dry, intact, appropriate color. Minimal edema BLLE feet - baseline.
--- NOTE | 2022-04-19 11:59 | PC.NURSE ---
Week #1: Care plan problems 1-19 and temporary care plan reviewed. No changes made. Nothing added to temporary care plan. Needs one staff assist with dressing, grooming, oral cares and bathing. Is able to participate as much as he can. Is independent with feeding. Is on regular diet. No problems noted with chewing or swallowing. VS reviewed. Pain: No pain this past month. Receives Tylenol 1000mg BID for pain control. Is able to verbalize need for pain.
[2022-04-19 17:01] VITALS: TEMP 36.4; O2SAT 96
[2022-04-19] MEDS: MELATONIN 3 MG TABLET PO (19:10)
[2022-04-20 02:18] VITALS: TEMP 36.9; O2SAT 97
[2022-04-20] MEDS: LEVOTHYROXINE 25 MCG TABLET 137 MCG PO (07:57)
[2022-04-20] MEDS: SENNOSIDES 1 TAB TABLET 2 TAB PO ×2 (07:57→19:17)
[2022-04-20] MEDS: ACETAMINOPHEN 650 MG TABLET ER 1300 MG PO ×2 (07:57→15:27)
[2022-04-20 11:08] VITALS: TEMP 36.6; O2SAT 93
[2022-04-20 15:00] VITALS: TEMP 36.8; O2SAT 96
[2022-04-20] MEDS: MELATONIN 3 MG TABLET PO (19:17)
[2022-04-21 02:26] VITALS: TEMP 36.6; O2SAT 91
[2022-04-21] MEDS: ACETAMINOPHEN 650 MG TABLET ER 1300 MG PO ×2 (07:23→15:48)
[2022-04-21] MEDS: LEVOTHYROXINE 25 MCG TABLET 137 MCG PO (07:23)
[2022-04-21] MEDS: SENNOSIDES 1 TAB TABLET 2 TAB PO ×2 (07:23→19:16)
[2022-04-21 10:50] VITALS: TEMP 36.4; O2SAT 95
[2022-04-21 17:20] VITALS: TEMP 36.6; O2SAT 98
[2022-04-21] MEDS: MELATONIN 3 MG TABLET PO (19:16)
[2022-04-22 02:17] VITALS: TEMP 36.4; O2SAT 94
[2022-04-22] MEDS: ACETAMINOPHEN 650 MG TABLET ER 1300 MG PO ×2 (07:54→16:25)
[2022-04-22] MEDS: SENNOSIDES 1 TAB TABLET 2 TAB PO ×2 (07:54→19:14)
[2022-04-22] MEDS: LEVOTHYROXINE 25 MCG TABLET 137 MCG PO (07:54)
[2022-04-22 15:02] VITALS: TEMP 36.2; O2SAT 97
[2022-04-22] MEDS: MELATONIN 3 MG TABLET PO (19:14)
[2022-04-22 21:23] VITALS: TEMP 36.3; O2SAT 91
[2022-04-23 02:06] VITALS: TEMP 36.2; O2SAT 97
[2022-04-23] MEDS: LEVOTHYROXINE 25 MCG TABLET 137 MCG PO (07:43)
[2022-04-23] MEDS: SENNOSIDES 1 TAB TABLET 2 TAB PO ×2 (07:44→19:07)
[2022-04-23] MEDS: ACETAMINOPHEN 650 MG TABLET ER 1300 MG PO ×2 (07:44→15:00)
[2022-04-23 10:13] VITALS: TEMP 36.6; O2SAT 95
[2022-04-23 16:52] VITALS: TEMP 36.3; O2SAT 95
[2022-04-23] MEDS: MELATONIN 3 MG TABLET PO (19:07)
[2022-04-23 23:00] VITALS: TEMP 36.4; O2SAT 95
[2022-04-24] MEDS: LEVOTHYROXINE 25 MCG TABLET 137 MCG PO (07:38)
[2022-04-24] MEDS: ACETAMINOPHEN 650 MG TABLET ER 1300 MG PO ×2 (07:38→15:16)
[2022-04-24] MEDS: SENNOSIDES 1 TAB TABLET 2 TAB PO ×2 (07:39→19:09)
[2022-04-24 10:44] VITALS: TEMP 36.5; O2SAT 93
[2022-04-24 16:53] VITALS: TEMP 36.6; O2SAT 96
[2022-04-24] MEDS: MELATONIN 3 MG TABLET PO (19:09)
[2022-04-24 23:00] VITALS: TEMP 36.4; O2SAT 98
[2022-04-25] MEDS: LEVOTHYROXINE 25 MCG TABLET 137 MCG PO (07:28)
[2022-04-25] MEDS: SENNOSIDES 1 TAB TABLET 2 TAB PO ×2 (07:29→20:10)
[2022-04-25] MEDS: ACETAMINOPHEN 650 MG TABLET ER 1300 MG PO ×2 (07:29→16:41)
--- NOTE | 2022-04-25 10:30 | PC.NURSE ---
MDS clarification: Reviewed MDS ADL charting for ANAMIKA 04/14, noted to have inconsistent charting. Interviewed NARs and determined that errors were made. Reviewed with staff. Resident is independent with bed mobility, transfers, ambulation, locomotion and toileting. Eating is able to feed self after set up. Dressing and Hygiene limited assist of 1 due to cognition. Coded as such in MDS.
[2022-04-25 10:37] VITALS: TEMP 36.3; O2SAT 94
[2022-04-25 15:00] VITALS: TEMP 36.5; O2SAT 95
--- NOTE | 2022-04-25 16:04 | PC.NURSE ---
COVID OUTBREAK TESTING: Resident was excluded from testing d/t recent COVID+ status. Testing will resume after 90 days from positive test result.
[2022-04-25] MEDS: MELATONIN 3 MG TABLET PO (20:10)
[2022-04-25 23:00] VITALS: TEMP 36.5; O2SAT 92
--- NOTE | 2022-04-26 02:03 | PC.NURSE ---
Week #2: Resident is not a fall risk, has had no falls in the last month. Temporary care plan reviewed, no change. Care plan - r reviewed, no change. Resident is independent with bed mobility and transfers, uses a walker.
[2022-04-26] MEDS: ACETAMINOPHEN 650 MG TABLET ER 1300 MG PO ×2 (07:05→15:11)
[2022-04-26] MEDS: LEVOTHYROXINE 25 MCG TABLET 137 MCG PO (07:05)
[2022-04-26] MEDS: SENNOSIDES 1 TAB TABLET 2 TAB PO ×2 (07:05→19:10)
[2022-04-26 08:00] VITALS: BP 130/77; PULSE 58; RESP 18; TEMP 36.2; O2SAT 94
[2022-04-26 10:16] VITALS: BMI 28.8
[2022-04-26 16:59] VITALS: TEMP 36.5; O2SAT 96
--- NOTE | 2022-04-26 18:40 | PC.NURSE ---
Week #2: Care plan problems - and temporary care plan reviewed. No changes made. Nothing added to temporary care plan. Resident is independent with ambulation in room & hallways with 4 ww, Independent with transfers and chair/bed mobility. Top side rails up to aid for positioning. Fall: No falls this past month. Continues to be a low fall risk.
[2022-04-26] MEDS: MELATONIN 3 MG TABLET PO (19:10)
[2022-04-26 23:00] VITALS: TEMP 36.6; O2SAT 96
[2022-04-27] MEDS: LEVOTHYROXINE 25 MCG TABLET 137 MCG PO (06:33)
[2022-04-27] MEDS: ACETAMINOPHEN 650 MG TABLET ER 1300 MG PO ×2 (08:01→15:37)
[2022-04-27] MEDS: SENNOSIDES 1 TAB TABLET 2 TAB PO ×2 (08:01→19:35)
[2022-04-27 10:46] VITALS: TEMP 36.6; O2SAT 93
[2022-04-27 15:00] VITALS: TEMP 36.6; O2SAT 95
[2022-04-27] MEDS: MELATONIN 3 MG TABLET PO (19:35)
[2022-04-27 23:00] VITALS: TEMP 36.8; O2SAT 93
[2022-04-28] MEDS: ACETAMINOPHEN 650 MG TABLET ER 1300 MG PO ×2 (09:05→15:29)
[2022-04-28] MEDS: LEVOTHYROXINE 25 MCG TABLET 137 MCG PO (09:05)
[2022-04-28] MEDS: SENNOSIDES 1 TAB TABLET 2 TAB PO ×2 (09:06→19:28)
[2022-04-28 09:59] VITALS: TEMP 36.2; O2SAT 95
[2022-04-28 18:36] VITALS: TEMP 36.2; O2SAT 100
[2022-04-28] MEDS: MELATONIN 3 MG TABLET PO (19:28)
[2022-04-28 23:00] VITALS: TEMP 36.5; O2SAT 95
[2022-04-29] MEDS: SENNOSIDES 1 TAB TABLET 2 TAB PO ×2 (07:37→19:27)
[2022-04-29] MEDS: ACETAMINOPHEN 650 MG TABLET ER 1300 MG PO ×2 (07:37→15:49)
[2022-04-29] MEDS: LEVOTHYROXINE 25 MCG TABLET 137 MCG PO (07:37)
[2022-04-29 10:30] VITALS: TEMP 36.6; O2SAT 94
[2022-04-29 18:29] VITALS: TEMP 36.6; O2SAT 94
[2022-04-29] MEDS: MELATONIN 3 MG TABLET PO (19:27)
[2022-04-29 23:00] VITALS: TEMP 36.5; O2SAT 90
[2022-04-30] MEDS: LEVOTHYROXINE 25 MCG TABLET 137 MCG PO (07:12)
[2022-04-30] MEDS: SENNOSIDES 1 TAB TABLET 2 TAB PO ×2 (07:48→19:21)
[2022-04-30] MEDS: ACETAMINOPHEN 650 MG TABLET ER 1300 MG PO ×2 (07:48→15:54)
[2022-04-30 10:28] VITALS: TEMP 36.5; O2SAT 96
[2022-04-30] MEDS: MELATONIN 3 MG TABLET PO (19:21)
[2022-04-30 21:06] VITALS: TEMP 36.6; O2SAT 93
[2022-04-30 23:00] VITALS: TEMP 36.6; O2SAT 95
[2022-05-01] MEDS: LEVOTHYROXINE 25 MCG TABLET 137 MCG PO (07:05)
[2022-05-01] MEDS: SENNOSIDES 1 TAB TABLET 2 TAB PO ×2 (07:53→19:48)
[2022-05-01] MEDS: ACETAMINOPHEN 650 MG TABLET ER 1300 MG PO ×2 (07:53→15:21)
[2022-05-01 10:34] VITALS: TEMP 36.3; O2SAT 96
[2022-05-01] MEDS: MELATONIN 3 MG TABLET PO (19:48)
[2022-05-01 20:46] VITALS: TEMP 37.1; O2SAT 94
[2022-05-01 23:00] VITALS: TEMP 36.6; O2SAT 95
[2022-05-02] MEDS: SENNOSIDES 1 TAB TABLET 2 TAB PO ×2 (07:27→19:04)
[2022-05-02] MEDS: LEVOTHYROXINE 25 MCG TABLET 137 MCG PO (07:27)
[2022-05-02] MEDS: ACETAMINOPHEN 650 MG TABLET ER 1300 MG PO ×2 (07:27→16:00)
[2022-05-02 10:37] VITALS: TEMP 36.6; O2SAT 95
--- NOTE | 2022-05-02 13:57 | PC.NURSE ---
COVID OUTBREAK TESTING: Resident was excluded from testing d/t recent COVID+ status. Testing will resume after 90 days from positive test result.
[2022-05-02] MEDS: MELATONIN 3 MG TABLET PO (19:04)
[2022-05-03 00:05] VITALS: TEMP 36.4; O2SAT 95
--- NOTE | 2022-05-03 01:38 | PC.NURSE ---
Week #3---care plan problems #30-39 reviewed.?No changes made.?Temporary care plan updated . Remains independent with toileting at night.? Ambulates with walker to the BR.? Manages own clothing and pericares. Skin---no issues at this time.
[2022-05-03] MEDS: LEVOTHYROXINE 25 MCG TABLET 137 MCG PO (06:59)
[2022-05-03] MEDS: ACETAMINOPHEN 650 MG TABLET ER 1300 MG PO ×2 (06:59→15:00)
[2022-05-03] MEDS: SENNOSIDES 1 TAB TABLET 2 TAB PO ×2 (06:59→19:19)
[2022-05-03 10:32] VITALS: TEMP 36.4; O2SAT 97
[2022-05-03 10:33] VITALS: BP 104/69; PULSE 61; RESP 18; TEMP 36.4; O2SAT 97
--- NOTE | 2022-05-03 13:25 | PC.NURSE ---
Week 3 summary: Reviewed temporary care plan and noted no new issues. Reviewed Care Plan 30-39. Resident continues to be continent of bowel and bladder. Takes self to bathroom and is assisted upon request. Wears his own undergarments.
[2022-05-03 18:45] VITALS: TEMP 36.3; O2SAT 93
[2022-05-03] MEDS: MELATONIN 3 MG TABLET PO (19:18)
[2022-05-04 05:54] VITALS: TEMP 36.4; O2SAT 96
[2022-05-04] MEDS: ACETAMINOPHEN 650 MG TABLET ER 1300 MG PO ×2 (07:09→16:42)
[2022-05-04] MEDS: LEVOTHYROXINE 25 MCG TABLET 137 MCG PO (07:09)
[2022-05-04] MEDS: SENNOSIDES 1 TAB TABLET 2 TAB PO ×2 (07:09→19:18)
[2022-05-04 10:48] VITALS: TEMP 36.5; O2SAT 93
--- NOTE | 2022-05-04 13:05 | PC.PHA ---
Pharmacy Review ~ Patient continues on same regimen with scheduled acetaminophen for pain. Levothyroxine continues. Renal Dosing for Oseltamivir: Treatment:30 mg po BID for 5 days Prophylaxis:30 mg daily for 14 days or longer (see policy).
[2022-05-04] MEDS: MELATONIN 3 MG TABLET PO (19:18)
[2022-05-05] MEDS: LEVOTHYROXINE 25 MCG TABLET 137 MCG PO (07:06)
[2022-05-05] MEDS: ACETAMINOPHEN 650 MG TABLET ER 1300 MG PO ×2 (08:00→15:41)
[2022-05-05] MEDS: SENNOSIDES 1 TAB TABLET 2 TAB PO ×2 (08:00→19:18)
[2022-05-05] MEDS: MELATONIN 3 MG TABLET PO (19:18)
[2022-05-06] MEDS: SENNOSIDES 1 TAB TABLET 2 TAB PO ×2 (07:13→19:38)
[2022-05-06] MEDS: ACETAMINOPHEN 650 MG TABLET ER 1300 MG PO ×2 (07:13→16:22)
[2022-05-06] MEDS: LEVOTHYROXINE 25 MCG TABLET 137 MCG PO (07:13)
--- NOTE | 2022-05-06 12:17 | PC.NURSE ---
Recertification Visit: Resident seen by Dr. Collier. Orders reviewed and renewed of 75 days with no changes.
[2022-05-06] MEDS: MELATONIN 3 MG TABLET PO (19:10)
[2022-05-07] MEDS: LEVOTHYROXINE 25 MCG TABLET 137 MCG PO (07:17)
[2022-05-07] MEDS: ACETAMINOPHEN 650 MG TABLET ER 1300 MG PO ×2 (07:17→16:18)
[2022-05-07] MEDS: SENNOSIDES 1 TAB TABLET 2 TAB PO ×2 (07:17→19:11)
[2022-05-07 09:30] VITALS: BMI 28.5
[2022-05-07 10:59] VITALS: BP 86/54; PULSE 60; RESP 20; TEMP 36.4; O2SAT 94
--- NOTE | 2022-05-07 11:08 | PC.NURSE ---
B/P low: Noted resident`s B/P was 86/54 using digital , rechecked with manual unit and it was 80/46. Resident is not on any hypertensive meds. Instructed to drink a lot of water and will cont to monitor.
--- NOTE | 2022-05-07 13:46 | PC.NURSE ---
Wound : Noted a 4cm callous wound on top of his great toe during bath assessment. Wound cleaned and apply 4x4 gauze to cover it. Added in the nursing intervention
[2022-05-07] MEDS: MELATONIN 3 MG TABLET PO (19:11)
[2022-05-08] MEDS: LEVOTHYROXINE 25 MCG TABLET 137 MCG PO (06:58)
[2022-05-08] MEDS: SENNOSIDES 1 TAB TABLET 2 TAB PO (07:52)
[2022-05-08] MEDS: ACETAMINOPHEN 650 MG TABLET ER 1300 MG PO ×2 (07:52→15:18)
[2022-05-08] MEDS: MELATONIN 3 MG TABLET PO (19:07)
[2022-05-09] MEDS: SENNOSIDES 1 TAB TABLET 2 TAB PO ×2 (07:21→19:24)
[2022-05-09] MEDS: LEVOTHYROXINE 25 MCG TABLET 137 MCG PO (07:21)
[2022-05-09] MEDS: ACETAMINOPHEN 650 MG TABLET ER 1300 MG PO ×2 (07:21→16:20)
[2022-05-09] MEDS: MELATONIN 3 MG TABLET PO (19:24)
--- NOTE | 2022-05-10 01:42 | PC.NURSE ---
Week #4: No changes in mood/behavior. Receives melatonin 3mg at HS with no noted adverse effects. Temporary care plan and care plan problems 40-119 reviewed with no change. Communication, hearing, vision, and orientation remain the same. No change in chronic health conditions or medications. Medications administered by staff. Sleeps well through the night with no behavioral concerns.
[2022-05-10 07:00] VITALS: BP 107/66; PULSE 60; RESP 24; TEMP 36.1; O2SAT 94; BMI 28.6
[2022-05-10] MEDS: LEVOTHYROXINE 25 MCG TABLET 137 MCG PO (07:26)
[2022-05-10] MEDS: SENNOSIDES 1 TAB TABLET 2 TAB PO ×2 (07:26→19:16)
[2022-05-10] MEDS: ACETAMINOPHEN 650 MG TABLET ER 1300 MG PO ×2 (07:26→15:57)
--- NOTE | 2022-05-10 07:29 | PC.NURSE ---
Week #4: Care plan problems 40-119 and temporary care plan reviewed. No changes made. Nothing added to temporary care plan. No changes in communication, hearing, vision, orientation and chronic health condition. He is able to make need needs known. Wears glasses. Hears fine in quite setting. Alert, forgetful at times. Chronic health condition stable. Staff administers medications. Mood/Behavior: No issues. Is on no psychotropic medications.
--- NOTE | 2022-05-10 09:13 | PC.NURSE ---
Skin check - Small open blister on R great toe. Applied bacitracin, clean gauze, and tape. No other areas of concern.
[2022-05-10] MEDS: MELATONIN 3 MG TABLET PO (19:16)
[2022-05-11] MEDS: ACETAMINOPHEN 650 MG TABLET ER 1300 MG PO ×2 (08:13→15:19)
[2022-05-11] MEDS: LEVOTHYROXINE 25 MCG TABLET 137 MCG PO (08:13)
[2022-05-11] MEDS: SENNOSIDES 1 TAB TABLET 2 TAB PO ×2 (08:13→19:10)
[2022-05-11] MEDS: MELATONIN 3 MG TABLET PO (19:10)
[2022-05-12] MEDS: LEVOTHYROXINE 25 MCG TABLET 137 MCG PO (06:50)
[2022-05-12] MEDS: ACETAMINOPHEN 650 MG TABLET ER 1300 MG PO ×2 (08:04→15:15)
[2022-05-12] MEDS: SENNOSIDES 1 TAB TABLET 2 TAB PO ×2 (08:04→19:08)
[2022-05-12] MEDS: MELATONIN 3 MG TABLET PO (19:08)
[2022-05-13] MEDS: LEVOTHYROXINE 25 MCG TABLET 137 MCG PO (07:29)
[2022-05-13] MEDS: ACETAMINOPHEN 650 MG TABLET ER 1300 MG PO ×2 (07:29→16:04)
[2022-05-13] MEDS: SENNOSIDES 1 TAB TABLET 2 TAB PO ×2 (07:29→19:19)
[2022-05-13] MEDS: MELATONIN 3 MG TABLET PO (19:19)
[2022-05-14] MEDS: LEVOTHYROXINE 25 MCG TABLET 137 MCG PO (06:37)
[2022-05-14] MEDS: SENNOSIDES 1 TAB TABLET 2 TAB PO ×2 (07:41→19:32)
[2022-05-14] MEDS: ACETAMINOPHEN 650 MG TABLET ER 1300 MG PO ×2 (07:41→16:07)
[2022-05-14] MEDS: MELATONIN 3 MG TABLET PO (19:32)
[2022-05-15] MEDS: LEVOTHYROXINE 25 MCG TABLET 137 MCG PO (06:51)
[2022-05-15] MEDS: ACETAMINOPHEN 650 MG TABLET ER 1300 MG PO ×2 (08:00→15:01)
[2022-05-15] MEDS: SENNOSIDES 1 TAB TABLET 2 TAB PO ×2 (08:00→19:32)
[2022-05-15] MEDS: MELATONIN 3 MG TABLET PO (19:32)
[2022-05-16] MEDS: SENNOSIDES 1 TAB TABLET 2 TAB PO ×2 (08:52→19:11)
[2022-05-16] MEDS: ACETAMINOPHEN 650 MG TABLET ER 1300 MG PO ×2 (08:52→16:13)
[2022-05-16] MEDS: LEVOTHYROXINE 25 MCG TABLET 137 MCG PO (08:52)
--- NOTE | 2022-05-16 13:31 | PC.NURSE ---
SKIN: resident has small abrasion to left great toe at knuckle. Also has a small abrasion to right 4th toe at knuckle. Resident unaware of any injury to these areas. No s/s infection. Possible friction from socks. Treatment set up to monitor at HS and apply lotion until healed. LIZBETH at this time. CP updated.
[2022-05-16] MEDS: MELATONIN 3 MG TABLET PO (19:11)
--- NOTE | 2022-05-17 03:20 | PC.NURSE ---
Week #1: Temporary care plan and care plan reviewed with no changes or additions. Receives acetaminophen 1300 mg BID for pain management which is noted to be effective. Independent with ADLs.
[2022-05-17 07:00] VITALS: BP 97/63; PULSE 66; RESP 20; TEMP 36.6; O2SAT 93; BMI 28.8
[2022-05-17] MEDS: LEVOTHYROXINE 25 MCG TABLET 137 MCG PO (07:27)
[2022-05-17] MEDS: SENNOSIDES 1 TAB TABLET 2 TAB PO ×2 (07:27→19:06)
[2022-05-17] MEDS: ACETAMINOPHEN 650 MG TABLET ER 1300 MG PO ×2 (07:27→15:20)
--- NOTE | 2022-05-17 07:32 | PC.NURSE ---
Week #1: Care plan problems 1-19 and temporary care plan reviewed. No changes made. Nothing added to temporary care plan. VS reviewed. Has occasional low BP, not on any BP medications. Needs one assist with dressing, grooming and bathing. Is usually able to perform task. Staff to check for completeness. Does oral cares after staff set up & cues. Is on regular diet. Feed independently. No problems noted with chewing/swallowing. Pain: No complain. Pain is managed with Tylenol 1300mg BID. Is able to tell when in pain.
--- NOTE | 2022-05-17 09:49 | PC.NURSE ---
Skin Check - No areas of concern noted. Topical scratches on lower back and upper back - looks as if pt may be scratching d/t itching. Discussed applying lotion daily with DORENE.
--- NOTE | 2022-05-17 11:57 | PC.SPIRITC ---
Roof Assembler provided visit for support and connection.
[2022-05-17] MEDS: MELATONIN 3 MG TABLET PO (19:06)
[2022-05-18] MEDS: LEVOTHYROXINE 25 MCG TABLET 137 MCG PO (07:43)
[2022-05-18] MEDS: SENNOSIDES 1 TAB TABLET 2 TAB PO ×2 (07:43→19:10)
[2022-05-18] MEDS: ACETAMINOPHEN 650 MG TABLET ER 1300 MG PO ×2 (07:43→15:46)
[2022-05-18] MEDS: MELATONIN 3 MG TABLET PO (19:10)
[2022-05-19] MEDS: LEVOTHYROXINE 25 MCG TABLET 137 MCG PO (07:13)
[2022-05-19] MEDS: SENNOSIDES 1 TAB TABLET 2 TAB PO ×2 (08:15→19:37)
[2022-05-19] MEDS: ACETAMINOPHEN 650 MG TABLET ER 1300 MG PO ×2 (08:15→15:19)
[2022-05-19] MEDS: MELATONIN 3 MG TABLET PO (19:37)
[2022-05-20] MEDS: ACETAMINOPHEN 650 MG TABLET ER 1300 MG PO ×2 (07:22→15:33)
[2022-05-20] MEDS: SENNOSIDES 1 TAB TABLET 2 TAB PO ×2 (07:22→18:59)
[2022-05-20] MEDS: LEVOTHYROXINE 25 MCG TABLET 137 MCG PO (07:22)
[2022-05-20] MEDS: MELATONIN 3 MG TABLET PO (18:59)
[2022-05-21] MEDS: LEVOTHYROXINE 25 MCG TABLET 137 MCG PO (07:32)
[2022-05-21] MEDS: SENNOSIDES 1 TAB TABLET 2 TAB PO ×2 (07:32→19:16)
[2022-05-21] MEDS: ACETAMINOPHEN 650 MG TABLET ER 1300 MG PO ×2 (07:32→16:18)
[2022-05-21] MEDS: MELATONIN 3 MG TABLET PO (19:16)
[2022-05-22] MEDS: SENNOSIDES 1 TAB TABLET 2 TAB PO ×2 (07:44→19:22)
[2022-05-22] MEDS: LEVOTHYROXINE 25 MCG TABLET 137 MCG PO (07:44)
[2022-05-22] MEDS: ACETAMINOPHEN 650 MG TABLET ER 1300 MG PO ×2 (07:44→15:20)
[2022-05-22] MEDS: MELATONIN 3 MG TABLET PO (19:22)
[2022-05-23] MEDS: ACETAMINOPHEN 650 MG TABLET ER 1300 MG PO ×2 (07:42→16:26)
[2022-05-23] MEDS: LEVOTHYROXINE 25 MCG TABLET 137 MCG PO (07:42)
[2022-05-23] MEDS: SENNOSIDES 1 TAB TABLET 2 TAB PO ×2 (07:42→19:16)
[2022-05-23] MEDS: MELATONIN 3 MG TABLET PO (19:16)
--- NOTE | 2022-05-24 00:49 | PC.NURSE ---
Weekly Charting- Week 1: vital signs review with noted low blood pressure which is chronic. temp,pulse,respirations and o2 sats are stable. Noted in temporary care plan abrasions to right foot, big toe and 4th toes knuckles. No s/s of infection noted. Resident has had no substantial complaints of pain and no additions or changes to pain medications. Resident is independent with bathing,dressing,grooming and oral cares with some over sight noted. Resident continues to have good appetite and requesting hot chocolate and cookies. No issues with eating such as choking. Able to feed self.
[2022-05-24 07:00] VITALS: BP 129/77; PULSE 55; RESP 20; TEMP 36.2; O2SAT 95; BMI 28.8
[2022-05-24] MEDS: ACETAMINOPHEN 650 MG TABLET ER 1300 MG PO ×2 (07:14→15:05)
[2022-05-24] MEDS: LEVOTHYROXINE 25 MCG TABLET 137 MCG PO (07:14)
[2022-05-24] MEDS: SENNOSIDES 1 TAB TABLET 2 TAB PO ×2 (07:14→19:37)
--- NOTE | 2022-05-24 09:25 | PC.NURSE ---
Skin check - No noted concerns - skin in good condition
--- NOTE | 2022-05-24 13:48 | PC.NURSE ---
Week #2: Mobility: Care plan reviewed, no changes made. Nothing added to temporary care plan. Resident is independent with transfers, ambulation, and bed mobility. Transfers and ambulates with a walker. No wheelchair use. Top side rails up in bed to aid for positioning. Fall: No falls the past month. Remains a low fall risk according to assessment done on 04/14/22.
[2022-05-24] MEDS: MELATONIN 3 MG TABLET PO (19:37)
[2022-05-25] MEDS: LEVOTHYROXINE 25 MCG TABLET 137 MCG PO (07:38)
[2022-05-25] MEDS: ACETAMINOPHEN 650 MG TABLET ER 1300 MG PO ×2 (07:38→15:36)
[2022-05-25] MEDS: SENNOSIDES 1 TAB TABLET 2 TAB PO ×2 (07:38→19:48)
[2022-05-25] MEDS: MELATONIN 3 MG TABLET PO (19:48)
[2022-05-26] MEDS: LEVOTHYROXINE 25 MCG TABLET 137 MCG PO (07:10)
[2022-05-26] MEDS: ACETAMINOPHEN 650 MG TABLET ER 1300 MG PO ×2 (07:45→15:24)
[2022-05-26] MEDS: SENNOSIDES 1 TAB TABLET 2 TAB PO ×2 (07:45→19:17)
--- NOTE | 2022-05-26 10:06 | PC.SPIRITC ---
Dental Laboratory Supervisor provided visit for support, connection, and life review.
[2022-05-26] MEDS: MELATONIN 3 MG TABLET PO (19:17)
[2022-05-27] MEDS: LEVOTHYROXINE 25 MCG TABLET 137 MCG PO (07:20)
[2022-05-27] MEDS: SENNOSIDES 1 TAB TABLET 2 TAB PO ×2 (07:20→19:12)
[2022-05-27] MEDS: ACETAMINOPHEN 650 MG TABLET ER 1300 MG PO ×2 (07:20→15:57)
[2022-05-27] MEDS: MELATONIN 3 MG TABLET PO (19:11)
[2022-05-28] MEDS: SENNOSIDES 1 TAB TABLET 2 TAB PO ×2 (07:06→19:11)
[2022-05-28] MEDS: ACETAMINOPHEN 650 MG TABLET ER 1300 MG PO ×2 (07:06→15:15)
[2022-05-28] MEDS: LEVOTHYROXINE 25 MCG TABLET 137 MCG PO (07:06)
[2022-05-28] MEDS: MELATONIN 3 MG TABLET PO (19:11)
[2022-05-29] MEDS: LEVOTHYROXINE 25 MCG TABLET 137 MCG PO (06:51)
[2022-05-29] MEDS: ACETAMINOPHEN 650 MG TABLET ER 1300 MG PO ×2 (07:53→15:25)
[2022-05-29] MEDS: SENNOSIDES 1 TAB TABLET 2 TAB PO ×2 (07:53→19:31)
[2022-05-29] MEDS: MELATONIN 3 MG TABLET PO (19:31)
[2022-05-30] MEDS: SENNOSIDES 1 TAB TABLET 2 TAB PO ×2 (07:49→19:46)
[2022-05-30] MEDS: LEVOTHYROXINE 25 MCG TABLET 137 MCG PO (07:49)
[2022-05-30] MEDS: ACETAMINOPHEN 650 MG TABLET ER 1300 MG PO ×2 (07:49→16:25)
[2022-05-30] MEDS: MELATONIN 3 MG TABLET PO (19:46)
--- NOTE | 2022-05-31 01:47 | PC.NURSE ---
WEEKLY CHARTING - WEEK 3: Vital signs reviewed with no concerns. Temporary care plan and comprehensive care plan reviewed with no changes. Per weekly skin assessment documentation, resident continues with abrasions on bilateral feet. Abrasions are monitored for s/sx of infection and lotion is applied at . Is independent with toileting and is continent of bowel and bladder. Staff assist as needed. Wears own underwear. Will occasionally wear a pull-up on evening and NOC shift. Bowel pattern is monitored.
[2022-05-31 07:00] VITALS: BP 141/79; PULSE 57; RESP 16; TEMP 35.7; O2SAT 96
[2022-05-31] MEDS: LEVOTHYROXINE 25 MCG TABLET 137 MCG PO (07:17)
[2022-05-31] MEDS: SENNOSIDES 1 TAB TABLET 2 TAB PO ×2 (07:17→19:11)
[2022-05-31] MEDS: ACETAMINOPHEN 650 MG TABLET ER 1300 MG PO ×2 (07:17→15:04)
--- NOTE | 2022-05-31 09:18 | PC.NURSE ---
Skin check - Pt reports dry, itchy skin on back. No flakiness, visible dryness, or scratches present. DORENE will continue to apply lotion to back AM and HS.
--- NOTE | 2022-05-31 09:30 | PC.NURSE ---
Week #3 - Toileting: Care plan reviewed, no changes made. Nothing added to temporary care plan. Resident is continent of bowel & bladder. Is independent with toileting, pericares and undergarment management. Will call for assist as needed. VS reviewed, Has few low BP values & HR on the 50's. Is not on any BP medications. Patient is asymptomatic. Skin: Scab on great toes resolved. Continue lotion to feet at HS. Skin is routinely checked on bath day.
[2022-05-31] MEDS: MELATONIN 3 MG TABLET PO (19:11)
[2022-06-01] MEDS: SENNOSIDES 1 TAB TABLET 2 TAB PO ×2 (07:19→20:43)
[2022-06-01] MEDS: ACETAMINOPHEN 650 MG TABLET ER 1300 MG PO ×2 (07:19→16:04)
[2022-06-01] MEDS: LEVOTHYROXINE 25 MCG TABLET 137 MCG PO (07:19)
--- NOTE | 2022-06-01 16:03 | PC.SPIRITC ---
Lace Burn Out Tender provided visit for support and connection.
[2022-06-01] MEDS: MELATONIN 3 MG TABLET PO (20:43)
[2022-06-02] MEDS: LEVOTHYROXINE 25 MCG TABLET 137 MCG PO (06:51)
[2022-06-02] MEDS: SENNOSIDES 1 TAB TABLET 2 TAB PO ×2 (07:06→20:06)
[2022-06-02] MEDS: ACETAMINOPHEN 650 MG TABLET ER 1300 MG PO ×2 (07:06→15:20)
[2022-06-02] MEDS: MELATONIN 3 MG TABLET PO (20:06)
[2022-06-03] MEDS: ACETAMINOPHEN 650 MG TABLET ER 1300 MG PO ×2 (07:01→15:07)
[2022-06-03] MEDS: LEVOTHYROXINE 25 MCG TABLET 137 MCG PO (07:01)
[2022-06-03] MEDS: SENNOSIDES 1 TAB TABLET 2 TAB PO ×2 (07:02→19:15)
[2022-06-03] MEDS: MELATONIN 3 MG TABLET PO (19:15)
[2022-06-04] MEDS: LEVOTHYROXINE 25 MCG TABLET 137 MCG PO (07:15)
[2022-06-04] MEDS: SENNOSIDES 1 TAB TABLET 2 TAB PO ×2 (07:15→19:06)
[2022-06-04] MEDS: ACETAMINOPHEN 650 MG TABLET ER 1300 MG PO ×2 (07:15→15:53)
[2022-06-04] MEDS: MELATONIN 3 MG TABLET PO (19:06)
[2022-06-05] MEDS: SENNOSIDES 1 TAB TABLET 2 TAB PO ×2 (07:22→19:31)
[2022-06-05] MEDS: ACETAMINOPHEN 650 MG TABLET ER 1300 MG PO ×2 (07:22→15:14)
[2022-06-05] MEDS: LEVOTHYROXINE 25 MCG TABLET 137 MCG PO (07:22)
[2022-06-05] MEDS: MELATONIN 3 MG TABLET PO (19:31)
[2022-06-06] MEDS: LEVOTHYROXINE 25 MCG TABLET 137 MCG PO (07:34)
[2022-06-06] MEDS: ACETAMINOPHEN 650 MG TABLET ER 1300 MG PO ×2 (07:34→16:08)
[2022-06-06] MEDS: SENNOSIDES 1 TAB TABLET 2 TAB PO ×2 (07:34→19:25)
[2022-06-06] MEDS: MELATONIN 3 MG TABLET PO (19:25)
--- NOTE | 2022-06-07 04:11 | PC.NURSE ---
WEEKLY CHARTING - WEEK 4: Vital signs reviewed with no concerns. Temporary and comprehensive car plan reviewed - no changes. No documented behaviors in the last month. Currently receives melatonin 3mg PO at HS with no adverse effects. Has moderate hearing impairment. Staff must speak distinctly. Dx of dementia may impair communication. Uses call light appropriately. Staff anticipate needs. Wears glasses for visual impairment.Mild cognitive impairment a/e/b BIMS core of 12. Staff encourage participation in ADLs and decision making. Staff reorient PRN. No med changes in the last month. Staff administer all medications. NO change in chronic health conditions.
[2022-06-07 07:00] VITALS: BP 128/79; PULSE 64; RESP 20; TEMP 36.4; O2SAT 94; BMI 28.8
--- NOTE | 2022-06-07 07:10 | PC.NURSE ---
Week #4: Care plan reviewed, no changes made. Nothing added to temporary care plan. No changes noted in communication, hearing,vision, or orientation. Resident does communicate needs and use the call light. Vision impaired corrected with glasses. Has moderate hearing impairment. Speak distinctly and adjust tone appropriately. No hearing device used. Has cognition deficits r/t dementia. Chronic health condition stable. Is not able to self administer medications. Vital signs reviewed with no concerns. Mood/Behavior: No issues. Is on no psychotropic medications.
[2022-06-07] MEDS: LEVOTHYROXINE 25 MCG TABLET 137 MCG PO (07:31)
[2022-06-07] MEDS: ACETAMINOPHEN 650 MG TABLET ER 1300 MG PO ×2 (07:31→15:20)
[2022-06-07] MEDS: SENNOSIDES 1 TAB TABLET 2 TAB PO ×2 (07:31→19:05)
--- NOTE | 2022-06-07 09:48 | PC.NURSE ---
Skin check - No skin issues noted - Blister on L great toe healed, scab present.
[2022-06-07] MEDS: MELATONIN 3 MG TABLET PO (19:05)
[2022-06-08] MEDS: LEVOTHYROXINE 25 MCG TABLET 137 MCG PO (06:58)
[2022-06-08] MEDS: ACETAMINOPHEN 650 MG TABLET ER 1300 MG PO ×2 (07:59→15:28)
[2022-06-08] MEDS: SENNOSIDES 1 TAB TABLET 2 TAB PO ×2 (08:00→19:39)
[2022-06-08] MEDS: MELATONIN 3 MG TABLET PO (19:39)
[2022-06-09] MEDS: ACETAMINOPHEN 650 MG TABLET ER 1300 MG PO ×2 (07:12→15:58)
[2022-06-09] MEDS: SENNOSIDES 1 TAB TABLET 2 TAB PO ×2 (07:12→19:39)
[2022-06-09] MEDS: LEVOTHYROXINE 25 MCG TABLET 137 MCG PO (07:12)
[2022-06-09] MEDS: MELATONIN 3 MG TABLET PO (19:39)
[2022-06-10] MEDS: LEVOTHYROXINE 25 MCG TABLET 137 MCG PO (06:51)
[2022-06-10] MEDS: ACETAMINOPHEN 650 MG TABLET ER 1300 MG PO ×2 (07:34→15:29)
[2022-06-10] MEDS: SENNOSIDES 1 TAB TABLET 2 TAB PO ×2 (07:34→19:42)
[2022-06-10] MEDS: MELATONIN 3 MG TABLET PO (19:42)
[2022-06-11] MEDS: LEVOTHYROXINE 25 MCG TABLET 137 MCG PO (07:00)
[2022-06-11] MEDS: SENNOSIDES 1 TAB TABLET 2 TAB PO ×2 (07:00→20:41)
[2022-06-11] MEDS: ACETAMINOPHEN 650 MG TABLET ER 1300 MG PO ×2 (07:00→15:50)
[2022-06-11] MEDS: MELATONIN 3 MG TABLET PO (20:41)
[2022-06-12] MEDS: LEVOTHYROXINE 25 MCG TABLET 137 MCG PO (06:47)
[2022-06-12] MEDS: ACETAMINOPHEN 650 MG TABLET ER 1300 MG PO ×2 (07:28→15:32)
[2022-06-12] MEDS: SENNOSIDES 1 TAB TABLET 2 TAB PO ×2 (07:28→19:45)
[2022-06-12] MEDS: MELATONIN 3 MG TABLET PO (19:45)
[2022-06-13] MEDS: SENNOSIDES 1 TAB TABLET 2 TAB PO ×2 (07:20→19:17)
[2022-06-13] MEDS: ACETAMINOPHEN 650 MG TABLET ER 1300 MG PO ×2 (07:20→19:17)
[2022-06-13] MEDS: LEVOTHYROXINE 25 MCG TABLET 137 MCG PO (07:20)
--- NOTE | 2022-06-13 10:22 | PC.PHA ---
Medication Review~ Medication Monitoring: No prescription psychopharmacotherapies to monitor. Melatonin at hs for sleep is up for debate. Comments/Irregularities:Patient continues on 4 medication regimen. Melatonin dose is not above usual starting dose. Suggested Course: If melatonin is not on regulatory list of meds that requires GDR then this patient does not require any medication interventions at this time.
[2022-06-13] MEDS: ACETAMINOPHEN 325 MG TABLET PO (13:45)
[2022-06-13] MEDS: MELATONIN 3 MG TABLET PO (19:17)
[2022-06-14 07:00] VITALS: BP 132/83; PULSE 80; RESP 20; TEMP 36.2; O2SAT 95; BMI 28.8
[2022-06-14] MEDS: SENNOSIDES 1 TAB TABLET 2 TAB PO ×2 (07:11→20:07)
[2022-06-14] MEDS: LEVOTHYROXINE 25 MCG TABLET 137 MCG PO (07:11)
[2022-06-14] MEDS: ACETAMINOPHEN 650 MG TABLET ER 1300 MG PO ×2 (08:11→16:25)
--- NOTE | 2022-06-14 10:53 | PC.NURSE ---
Skin check - No noted areas of concern. Skin is warm, dry, intact, appropriate color. Slight non-pitting edema bilateral feet - baseline.
[2022-06-14] MEDS: MELATONIN 3 MG TABLET PO (20:07)
[2022-06-15] MEDS: SENNOSIDES 1 TAB TABLET 2 TAB PO ×2 (07:28→19:27)
[2022-06-15] MEDS: ACETAMINOPHEN 650 MG TABLET ER 1300 MG PO ×2 (07:28→16:20)
[2022-06-15] MEDS: LEVOTHYROXINE 25 MCG TABLET 137 MCG PO (07:28)
[2022-06-15] MEDS: MELATONIN 3 MG TABLET PO (19:27)
[2022-06-16] MEDS: LEVOTHYROXINE 25 MCG TABLET 137 MCG PO (06:49)
[2022-06-16] MEDS: SENNOSIDES 1 TAB TABLET 2 TAB PO ×2 (07:39→19:23)
[2022-06-16] MEDS: ACETAMINOPHEN 650 MG TABLET ER 1300 MG PO ×2 (07:39→16:09)
[2022-06-16] MEDS: MELATONIN 3 MG TABLET PO (19:23)
[2022-06-17] MEDS: LEVOTHYROXINE 25 MCG TABLET 137 MCG PO (07:24)
[2022-06-17] MEDS: ACETAMINOPHEN 650 MG TABLET ER 1300 MG PO ×2 (07:24→15:39)
[2022-06-17] MEDS: SENNOSIDES 1 TAB TABLET 2 TAB PO ×2 (07:24→19:07)
[2022-06-17] MEDS: MELATONIN 3 MG TABLET PO (19:07)
[2022-06-18] MEDS: LEVOTHYROXINE 25 MCG TABLET 137 MCG PO (07:12)
[2022-06-18] MEDS: SENNOSIDES 1 TAB TABLET 2 TAB PO ×2 (07:12→19:12)
[2022-06-18] MEDS: ACETAMINOPHEN 650 MG TABLET ER 1300 MG PO ×2 (07:12→15:56)
[2022-06-18] MEDS: MELATONIN 3 MG TABLET PO (19:12)
[2022-06-19] MEDS: SENNOSIDES 1 TAB TABLET 2 TAB PO ×2 (07:33→19:07)
[2022-06-19] MEDS: ACETAMINOPHEN 650 MG TABLET ER 1300 MG PO ×2 (07:33→15:13)
[2022-06-19] MEDS: LEVOTHYROXINE 25 MCG TABLET 137 MCG PO (07:33)
[2022-06-19] MEDS: MELATONIN 3 MG TABLET PO (19:07)
[2022-06-20] MEDS: ACETAMINOPHEN 650 MG TABLET ER 1300 MG PO ×2 (07:21→16:36)
[2022-06-20] MEDS: LEVOTHYROXINE 25 MCG TABLET 137 MCG PO (07:21)
[2022-06-20] MEDS: SENNOSIDES 1 TAB TABLET 2 TAB PO ×2 (07:21→19:32)
--- NOTE | 2022-06-20 16:44 | PC.NURSE ---
Teeth/mouth: assessed inside residents mouth d/t noted pain with teeth in the past week. Resident has multiple missing and broken teeth. At time of assessment resident denies pain and states that his last molar on the left side does cause him bother when he places his tongue on the broken tooth. Resident does have pump under his tongue that is the size of a pea. Resident denies pain or difficulty chewing or swallowing. Will update with concerns.
[2022-06-20] MEDS: MELATONIN 3 MG TABLET PO (19:32)
--- NOTE | 2022-06-21 02:53 | PC.NURSE ---
WEEKLY CHARTING - WEEK 1: Vital signs reviewed - no concern. Temporary and comprehensive care plan reviewed with no changes. Currently receives acetaminophen 1300mg BID and 650mg Q6 hours PRN. Assist of 1 with dressing, grooming, hygiene, and bathing. Encourage resident participation. Set-up assist with cueing for oral care BID. Receives a regular diet with regular textures and thin liquids. Weight is stable over last 30 days.
[2022-06-21 07:00] VITALS: BP 110/71; PULSE 55; RESP 20; TEMP 36.2; O2SAT 95; BMI 28.8
[2022-06-21] MEDS: LEVOTHYROXINE 25 MCG TABLET 137 MCG PO (08:00)
[2022-06-21] MEDS: ACETAMINOPHEN 650 MG TABLET ER 1300 MG PO ×2 (08:00→15:21)
[2022-06-21] MEDS: SENNOSIDES 1 TAB TABLET 2 TAB PO ×2 (08:00→19:24)
--- NOTE | 2022-06-21 09:54 | PC.NURSE ---
Order: Discontinue Melatonin 3mg @ HS by Arturo ODELL.
--- NOTE | 2022-06-21 10:01 | PC.NURSE ---
Week #1: Comprehensive care plan reviewed, no changes made. Nothing added to temporary care plan. Resident needs one assist with dressing, grooming, and bathing. Encourage to participate as much as possible. Is able to do oral cares after staff set up with cueing. Independent with feeding. Is on regular diet, thin liquids. No problems with chewing or swallowing reported. Vital signs reviewed, no concerns. Pain: Is controlled with Tylenol Arthritis 1300mg BID. Tylenol 650mg pso is also available. Received one dose on 06/13 for tooth ache with relief. Resident is able to tell when in pain.
--- NOTE | 2022-06-21 10:09 | PC.NURSE ---
Skin check - Skin dry, intact, appropriate color, warm. No noted areas of concern. Bilateral feet non-pitting edema.
[2022-06-22] MEDS: LEVOTHYROXINE 25 MCG TABLET 137 MCG PO (07:12)
[2022-06-22] MEDS: SENNOSIDES 1 TAB TABLET 2 TAB PO (07:12)
[2022-06-22] MEDS: ACETAMINOPHEN 650 MG TABLET ER 1300 MG PO ×2 (07:12→15:46)
[2022-06-23] MEDS: LEVOTHYROXINE 25 MCG TABLET 137 MCG PO (06:53)
[2022-06-23] MEDS: SENNOSIDES 1 TAB TABLET 2 TAB PO ×3 (06:53→19:14)
[2022-06-23] MEDS: ACETAMINOPHEN 650 MG TABLET ER 1300 MG PO ×2 (07:08→16:07)
[2022-06-24] MEDS: LEVOTHYROXINE 25 MCG TABLET 137 MCG PO (07:11)
[2022-06-24] MEDS: ACETAMINOPHEN 650 MG TABLET ER 1300 MG PO ×2 (07:11→15:30)
[2022-06-24] MEDS: SENNOSIDES 1 TAB TABLET 2 TAB PO ×2 (07:11→19:33)
[2022-06-25] MEDS: LEVOTHYROXINE 25 MCG TABLET 137 MCG PO (06:50)
[2022-06-25] MEDS: ACETAMINOPHEN 650 MG TABLET ER 1300 MG PO ×2 (07:37→16:11)
[2022-06-25] MEDS: SENNOSIDES 1 TAB TABLET 2 TAB PO ×2 (07:37→19:26)
[2022-06-25 09:55] VITALS: BMI 29.0
[2022-06-26] MEDS: SENNOSIDES 1 TAB TABLET 2 TAB PO ×2 (07:47→20:37)
[2022-06-26] MEDS: ACETAMINOPHEN 650 MG TABLET ER 1300 MG PO ×2 (07:47→15:07)
[2022-06-26] MEDS: LEVOTHYROXINE 25 MCG TABLET 137 MCG PO (07:47)
[2022-06-27] MEDS: LEVOTHYROXINE 25 MCG TABLET 137 MCG PO (07:41)
[2022-06-27] MEDS: ACETAMINOPHEN 650 MG TABLET ER 1300 MG PO ×2 (07:43→15:17)
[2022-06-27] MEDS: SENNOSIDES 1 TAB TABLET 2 TAB PO ×2 (07:43→19:06)
--- NOTE | 2022-06-28 01:56 | PC.NURSE ---
Weekly 3 Toileting and skin Resident vitals are fine , no concerns. Care plan will remain unchanged ; resident is independent on the floor, walks to meals. No skin issues at this time , he is continent of bowel and bladder. Resident is assist of one occasionally , eats independently after set up. He is confused sometimes or forgetful at times about what to do next from one activity to another ; for instance , going to bed after dinner.
[2022-06-28 07:00] VITALS: BP 103/62; PULSE 60; RESP 20; TEMP 36.5; O2SAT 96; BMI 29.4
[2022-06-28] MEDS: LEVOTHYROXINE 25 MCG TABLET 137 MCG PO (07:31)
[2022-06-28] MEDS: SENNOSIDES 1 TAB TABLET 2 TAB PO ×2 (07:31→19:27)
[2022-06-28] MEDS: ACETAMINOPHEN 650 MG TABLET ER 1300 MG PO ×2 (07:31→15:07)
--- NOTE | 2022-06-28 08:13 | PC.NURSE ---
Week #2: Comprehensive care plan reviewed, no changes made. Nothing added to temporary care plan. Resident is independent with transfers, ambulation and positioning in bed and chair. Ambulates with a walker. No wheelchair use. Top side rails up to aid with bed mobility. Fall: No falls the past month. Is a low fall risk according to assessment done on 04/14/22.
--- NOTE | 2022-06-28 09:25 | PC.NURSE ---
Skin check - No areas of concern. Skin intact, warm, dry, appropriate color. Slight pitting edema to bilateral feet - baseline.
[2022-06-29] MEDS: ACETAMINOPHEN 650 MG TABLET ER 1300 MG PO ×2 (07:32→15:11)
[2022-06-29] MEDS: SENNOSIDES 1 TAB TABLET 2 TAB PO ×2 (07:32→19:08)
[2022-06-29] MEDS: LEVOTHYROXINE 25 MCG TABLET 137 MCG PO (07:32)
--- NOTE | 2022-06-29 14:56 | PC.PHA ---
MEDICATION REVIEW: MEDICATION MONITORING: No psycho-pharmacotherapy medications ordered. Patient takes Acetaminophen, senna, and levothyroxine daily. IRREGULARITY OR COMMENTS: Melatonin stopped since last review. Nursing notes reviewed no medication related comments found. SUGGESTED COURSE OF ACTION: No medication recommendations for June.
[2022-06-29 15:04] VITALS: BMI 29.4
[2022-06-30] MEDS: ACETAMINOPHEN 650 MG TABLET ER 1300 MG PO ×2 (07:14→16:13)
[2022-06-30] MEDS: LEVOTHYROXINE 25 MCG TABLET 137 MCG PO (07:14)
[2022-06-30] MEDS: SENNOSIDES 1 TAB TABLET 2 TAB PO ×2 (07:14→19:40)
[2022-07-01] MEDS: LEVOTHYROXINE 25 MCG TABLET 137 MCG PO (06:42)
[2022-07-01] MEDS: ACETAMINOPHEN 650 MG TABLET ER 1300 MG PO ×2 (07:47→15:08)
[2022-07-01] MEDS: SENNOSIDES 1 TAB TABLET 2 TAB PO ×2 (07:47→19:32)
[2022-07-02] MEDS: ACETAMINOPHEN 650 MG TABLET ER 1300 MG PO ×2 (07:12→16:14)
[2022-07-02] MEDS: LEVOTHYROXINE 25 MCG TABLET 137 MCG PO (07:12)
[2022-07-02] MEDS: SENNOSIDES 1 TAB TABLET 2 TAB PO ×2 (07:12→19:16)
[2022-07-03] MEDS: ACETAMINOPHEN 650 MG TABLET ER 1300 MG PO ×2 (07:42→15:03)
[2022-07-03] MEDS: LEVOTHYROXINE 25 MCG TABLET 137 MCG PO (07:42)
[2022-07-03] MEDS: SENNOSIDES 1 TAB TABLET 2 TAB PO ×2 (07:42→19:42)
[2022-07-04] MEDS: ACETAMINOPHEN 650 MG TABLET ER 1300 MG PO ×2 (07:51→15:21)
[2022-07-04] MEDS: LEVOTHYROXINE 25 MCG TABLET 137 MCG PO (07:51)
[2022-07-04] MEDS: SENNOSIDES 1 TAB TABLET 2 TAB PO ×2 (07:51→19:31)
--- NOTE | 2022-07-05 01:06 | PC.NURSE ---
WEEKLY CHARTING - WEEK 3: Vital signs reviewed with no concerns. Temporary and comprehensive care plan reviewed with no change. No documented skin integrity concerns per weekly skin assessment. Is continent of bowel and bladder and independent with toileting. Wears own undergarments. Will occasionally wear a large pull-up at night.
[2022-07-05 07:00] VITALS: BP 104/67; PULSE 56; RESP 24; TEMP 36.4; O2SAT 93; BMI 29.0
--- NOTE | 2022-07-05 07:30 | PC.NURSE ---
Week #3 - Toileting: Comprehensive care plan reviewed, no changes made. Nothing added to temporary care plan. Resident is continent of bowel and bladder. And is independent with toileting: pads, tyshawn cares and clothing management. Will call for assist as needed. Wears own undergarments. And on occasion a large pull up. Vital signs reviewed, no concerns. Skin: No issues at this time. Skin is routinely checked on bath day & PRN.
[2022-07-05] MEDS: LEVOTHYROXINE 25 MCG TABLET 137 MCG PO (07:40)
[2022-07-05] MEDS: ACETAMINOPHEN 650 MG TABLET ER 1300 MG PO (07:40)
[2022-07-05] MEDS: SENNOSIDES 1 TAB TABLET 2 TAB PO ×2 (07:40→19:11)
--- NOTE | 2022-07-05 09:08 | PC.NURSE ---
Skin check - Scab on L great toe minimal bleeding - looks like scab was bumped and it opened up. Majority of scab still intact. Band-aid in place. Continue to monitor. Other than that skin is dry, intact, warm, appropriate color.
--- NOTE | 2022-07-05 11:27 | PC.NURSE ---
Addendum entered by Pastora Grace RN 07/05/22 11:31: Check TSH on 07/07/22. Original Note: Recert Visit: Resident seen by Arturo ODELL. Orders reviewed and renewed of 75 days with changes. Order: Discontinue Tylenol 1300mg BID.
--- NOTE | 2022-07-05 14:02 | PC.SOCIAL ---
Held resident's care conference today at 1:30 pm in activity room. Resident's , Louann Mccarty, participated by phone. Updates from Kathryn Perales in Nursing, Zohreh Perea in Nutrition, Radha Dudley in Life Enrichment, and this worker from Social Work. Reviewed residents care plan. Resident's mood is currently stable and there are no concerns regarding resident's mood. Discussion was held regarding resident's teeth and the possibility of resident going to a dental appointment. Louann will discuss with family and follow up with Kathryn Perales in Nursing.
--- NOTE | 2022-07-05 14:30 | PC.NURSE ---
Hearing, Vision, Dental: discussed needs at care conference. Hearing: Resident, . nursing have no concerns of resident needing hearing aides at this time or other otology concerns. Vision: resident wears glasses daily. Resident, , nursing have no concerns regarding vision and do not want to make a vision appt at this time. Dental: Resident has broken teeth and cavities noted, at times in past 3 months has c/o pain in mouth. Solutions Sales Consultant has talked with residents and family multiple times about need for dental appointment. has declined to take resident to a dentist in the past. Again discussed the needs and the residents risks if not taken to him to the dentist. Discussed barriers: stated due to [place] he has to go up to [facility] for appointment, stated it's too far for him. Discussed his dementia and that feels he will not sit in the dental chair long enough to get work done. Solutions Sales Consultant did review that medications can be given to resident to assist with any anxiety he may have about going to the dentist. At this time residents remains reluctant to get him to a dentist and stated she will talk with her son and daughter in law and her own dentist to see what their thoughts are about having him be seen by a dentist. Will follow up with in the next two weeks on dental needs.
--- NOTE | 2022-07-05 14:30 | PC.NURSE ---
CARE CONFERENCE: Nursing, Activities, Dietary, and Social Service team present. present via phone. asked that resident not be present. Reviewed ADLS, transfers and mobility. Resident accepts ADL assistance from staff. Continues to be reminded by staff that it is time to brush teeth, shave, and change his clothes each morning/evening. Resident has poor dentition, he denies any pain or issues at this time, elects to continue monitoring but discussed futher the needs to be seen and the risks resident has by not going tot the dentist at this time. See dental, vision, hearing note for more details. Resident receives sugar free hot cocoa and oreos daily. His weight is at 220 lbs. Resident is independent with transfers, bed mobility and ambulation. Use of walker. Reminders needed to use sometimes. High fall risk. Resident can become easily agitated and becomes fixated on topics such as how much he pays for his room, or why his does not live with him. Mood assessment done and mood is stable per SS. states she notices resident is 95% happy but the other times seems a bit down. They still talk everyday at 5pm. She does not want medications reviewed or started for depression at this time. May need to redirect, is usually redirected easily. Resident has dementia. Resident likes to eat breakfast in his room. Will choose if he wants to come out for lunch or dinner. Resident has been coming out frequently for activities. Especially enjoys bingo and cards. He also enjoys watching baseball games on the TV in his room but states he has been liking to do this less and less and has begun to sleep more. Nursing gives all medications. would like nursing to email medication list to her, care plan reviewed and updated. POLST reviewed. Is DNR/DNI. Uses no restraints.? Does use 2 side rails up to assist with positioning will review/assess for future use.? Vulnerability- is at risk for being harmed due to weakness and balance. No plans for discharge. No questions/concerns at this time. is happy with his care.
[2022-07-06] MEDS: LEVOTHYROXINE 25 MCG TABLET 137 MCG PO (07:51)
[2022-07-06] MEDS: SENNOSIDES 1 TAB TABLET 2 TAB PO ×2 (07:51→19:42)
--- NOTE | 2022-07-06 08:34 | PC.SPIRITC ---
Late entry for 07/05/22: Wincher provided visit for support and connection.
--- NOTE | 2022-07-06 12:06 | PC.SPIRITC ---
provided visit for connection and support.
[2022-07-07] MEDS: LEVOTHYROXINE 25 MCG TABLET 137 MCG PO (07:48)
[2022-07-07] MEDS: SENNOSIDES 1 TAB TABLET 2 TAB PO ×2 (07:48→20:19)
--- NOTE | 2022-07-07 08:49 | PC.NURSE ---
Met with resident to complete a side rail utilization assessment and he indicated he did not want to use side rails. Will continue with interventions call light in reach, scheduled bathroom assistance, increase monitoring, walker at bedside, bed in low position.
[2022-07-07 10:50] LABS: Thyroid Stimulating Hormone* 0.716 uIU/mL (0.270-4.20)
--- NOTE | 2022-07-07 21:33 | PC.NURSE ---
Resident requested both bed side rails be left up this evening for positioning.
[2022-07-08] MEDS: SENNOSIDES 1 TAB TABLET 2 TAB PO ×2 (07:40→20:08)
[2022-07-08] MEDS: LEVOTHYROXINE 25 MCG TABLET 137 MCG PO (07:40)
--- NOTE | 2022-07-08 10:14 | PC.NURSE ---
MDS charting: Spoke to staff about toileting charting during ANAMIKA. Incorrect charting done. Resident is continent of urine. MDS supports the continent documentation.
[2022-07-09] MEDS: SENNOSIDES 1 TAB TABLET 2 TAB PO ×2 (07:36→19:58)
[2022-07-09] MEDS: LEVOTHYROXINE 25 MCG TABLET 137 MCG PO (07:36)
[2022-07-10] MEDS: SENNOSIDES 1 TAB TABLET 2 TAB PO ×2 (07:50→19:29)
[2022-07-10] MEDS: LEVOTHYROXINE 25 MCG TABLET 137 MCG PO (07:50)
[2022-07-10] MEDS: ACETAMINOPHEN 325 MG TABLET 650 MG PO (20:39)
[2022-07-11] MEDS: SENNOSIDES 1 TAB TABLET 2 TAB PO ×2 (07:49→19:11)
[2022-07-11] MEDS: LEVOTHYROXINE 25 MCG TABLET 137 MCG PO (07:49)
--- NOTE | 2022-07-11 23:47 | PC.NURSE ---
Weekly Charting Week #4: No changes made to the temporary or comprehensive care plan. vital signs are stable. Resident has diagnosis of Dementia and does have memory loss. No noted behaviors to report in the last month. Does not take any mood/behavior medications. No changes noted in residents communication skills. He does have some hearing loss and may need to have you speak up at times. Some vision issues and does wear corrective lenses. Orientated to person and place. No changes in medications with a minimal list of medications. No changes in chronic health conditions.
[2022-07-12 07:00] VITALS: BP 108/65; PULSE 70; RESP 24; TEMP 36.4; O2SAT 96; BMI 28.8
--- NOTE | 2022-07-12 07:17 | PC.NURSE ---
Week #4: Comprehensive care plan reviewed, no changes made. Nothing added to temporary care plan. No changes noted in communication, hearing, vision, orientation. He does make his needs known. Needs also anticipated by staff, does have diagnosis of dementia which may affect his ability to communicate effectively. Has hearing impairment as evidenced by speaker needing to increase volume and speak distinctly. Has impaired vision corrected by glasses. Has cognitive deficit r/t progressing dementia. Chronic health condition stable. Vital signs, no concerns. Does not self administer medications. Mood/Behavior: No issues. Is on no psychotropic medications.
[2022-07-12] MEDS: LEVOTHYROXINE 25 MCG TABLET 137 MCG PO (07:58)
[2022-07-12] MEDS: SENNOSIDES 1 TAB TABLET 2 TAB PO ×2 (07:58→19:10)
--- NOTE | 2022-07-12 09:52 | PC.NURSE ---
Skin check - No open areas. 1+ Edema R foot - baseline. Skin slightly dry - continue to apply lotion to pt back. No other concerns.
[2022-07-13] MEDS: SENNOSIDES 1 TAB TABLET 2 TAB PO ×2 (07:38→19:20)
[2022-07-13] MEDS: LEVOTHYROXINE 25 MCG TABLET 137 MCG PO (07:38)
[2022-07-14] MEDS: LEVOTHYROXINE 25 MCG TABLET 137 MCG PO (07:37)
[2022-07-14] MEDS: SENNOSIDES 1 TAB TABLET 2 TAB PO ×2 (07:37→19:06)
[2022-07-15] MEDS: LEVOTHYROXINE 25 MCG TABLET 137 MCG PO (07:53)
[2022-07-15] MEDS: SENNOSIDES 1 TAB TABLET 2 TAB PO ×2 (07:53→19:29)
--- NOTE | 2022-07-15 15:15 | PC.NURSE ---
Side rail Assessment/Providers Orders/Informed Consent: Completed side rail utilization assessment, RBVO both bed rails up to promote independence/positioning at all times. Requested by resident. DX: weakness per Marlen Morris NP. Bed rail informed consent form signed and filed. Side rail pamphlet given to residents at this time. Intervention in place/Care Plan and Care Sheets updated.
[2022-07-16] MEDS: LEVOTHYROXINE 25 MCG TABLET 137 MCG PO (07:50)
[2022-07-16] MEDS: SENNOSIDES 1 TAB TABLET 2 TAB PO (07:50)
[2022-07-16 09:50] VITALS: TEMP 36.8
--- NOTE | 2022-07-16 09:51 | PC.NURSE ---
Pt emesis - Moderate emesis 07/16/22 at 0730. Pt refused breakfast. T: 98.2. Pt states they just want to sleep.
--- NOTE | 2022-07-16 13:23 | PC.NURSE ---
11am up in his chair. patient states stomach feels uncomfortable. then states not painful. abd distended as normally is. poss bs all 4 quads. states had a bm yest. states passing gas. emesis this am. given gingerail on ice and soda cr. with some relief. having a bm at 1230. checked on pt at 1300. lying in bed with hob elevated. states feeling well.
--- NOTE | 2022-07-16 15:54 | PC.NURSE ---
Covid Testing: Resident had emesis this morning and this afternoon had two loose watery stools. Denies feeling sick. Vital signs T-97.9, P-72, R-18, B/P-142/84 and 92% O2 sat on RA. SWabbed for covid and considering the Norovirus test if he has another loose stool.
[2022-07-16 16:35] LABS: SARS PCR* Negative SARS-CoV-2 (Negative)
--- NOTE | 2022-07-16 17:22 | PC.NURSE ---
Update Winter: Per standing orders completed a Covid and Influenza A&B test which were negative. Updated Winter with residents status of emesis,not eating today and 3 watery stools. She agreed to collect stool sample for NoroVirus test and also gave order for Zofran 4mg sublingual Q6hr for nausea and vomitting. Will update family of his not feeling well.
--- NOTE | 2022-07-16 17:30 | PC.NURSE ---
Family update: Called Louann to update on Carlos and his illness. Updated on negative COVID and Influenza tests and that we will be collecting a stool sample to test for NoroVirus. She was ok with sending his clothes to the laundry and she will call before coming tomorrow to at the least bring him more clothes.
--- NOTE | 2022-07-16 21:58 | PC.NURSE ---
GI followup. At this time resident is sleeping soundly. DORENE said he refused to use the bathroom before going to bed. He is quite weak at this time. He did take in 2 cans of soda and a glass of water this evening. Had no desire to take the chicken broth. TIN WHIZ MACHINE OPERATOR asked to give him clear liquids to give his stomach a rest.
[2022-07-17] MEDS: LEVOTHYROXINE 25 MCG TABLET 137 MCG PO (06:47)
[2022-07-17] MEDS: SENNOSIDES 1 TAB TABLET 2 TAB PO (08:31)
--- NOTE | 2022-07-17 11:00 | PC.NURSE ---
Laundry: Resident's requested laundry be sent out through the hospital service temporarily.
--- NOTE | 2022-07-17 14:24 | PC.NURSE ---
Status: Resident slept on/off this morning. Appetite poor. Tolerated sips of jin luis and sprite. 2x incontinent loose stools. Resident cleaned up and pad changed by staff.
--- NOTE | 2022-07-17 17:12 | PC.NURSE ---
Follow up: Resident has been resting in his recliner. Was asked if he needed to use the bathroom and he said he used it last week then laughed. Temp. was 98.2. No complaints of nausea. Encouraging him to drink more fluids and eat something for dinner. Listened to his bowel sounds which were very faint in all 4 quadrants. Still very weak and not up and moving.
--- NOTE | 2022-07-17 21:53 | PC.NURSE ---
Resident has been resting all evening. Sat him up with some small amount of food and his favorite hot chocolate and Sprite. Walked past his room minutes later and he was reclined back in the recliner without touching anything. He had some loose stool this evening x 1 and held his Senna this evening. He is tired and weak. He was able to ambulate to the bathroom with assistance and walker.
--- NOTE | 2022-07-17 21:56 | PC.NURSE ---
Addendum entered by Mindi Perales RN 07/27/22 20:09: Noted to be charted in wrong residents chart. Original Note: Bleeding from rectum: Resident reported that she was trying to move her bowels and she saw some blood on the tissue and in the toilet. She stated that she has bowel movement but it is more liquid and it felt as if there was a hard stool in there.
[2022-07-18 05:38] VITALS: TEMP 36.8
--- NOTE | 2022-07-18 05:39 | PC.NURSE ---
Watery stools x2 during the night. Increased confusion noted. Is weak and unsteady on feet. Staff encourage call light utilization for assistance. Fluids offered, but intake is poor. Has declined any snacks. Temp 98.3.
[2022-07-18] MEDS: LEVOTHYROXINE 25 MCG TABLET 137 MCG PO (07:59)
[2022-07-18 08:00] VITALS: TEMP 36.4
[2022-07-18 09:24] VITALS: TEMP 36.4; O2SAT 97
--- NOTE | 2022-07-18 13:19 | PC.NURSE ---
Addendum entered by Mindi Perales RN 07/18/22 19:09: 07/16/22: Residents gave consent for COVID testing until outbreak status is complete. Original Note: COVID OUTBREAK TESTING: Resident provided verbal consent for outbreak COVID testing. Resident is currently asymptomatic. Resident/family will be notified only if resident is positive.
[2022-07-18 16:42] VITALS: TEMP 36.8; O2SAT 97
[2022-07-18 17:19] LABS: SARS PCR* Negative SARS-CoV-2 (Negative)
[2022-07-18] MEDS: SENNOSIDES 1 TAB TABLET 2 TAB PO (19:52)
[2022-07-18 23:00] VITALS: TEMP 36.8; O2SAT 93
--- NOTE | 2022-07-19 03:17 | PC.NURSE ---
WEEKLY CHARTING - WEEK 1: Vital signs reviewed. No concerns. Temporary and comprehensive care plan reviewed - no change. NO c/o pain and denies pain when asked. PRN acetaminophen for pain management. Requires assist of 1 for dressing, grooming, and bathing. Set-up with cues for oral care. Receives a regular diet. Able to eat independently after set-up. Receives a regular diet.
--- NOTE | 2022-07-19 05:19 | PC.NURSE ---
Has had 1 loose stool during the night. Remains afebrile. Taking fluids well this shift. Has not been using call light for assistance. Is resistive to allowing staff to assist as there is some stool on his bedsheets and will not allow them to be changed.
[2022-07-19 07:00] VITALS: BP 98/63; PULSE 87; RESP 12; TEMP 36.8; O2SAT 93; BMI 27.9
[2022-07-19] MEDS: LEVOTHYROXINE 25 MCG TABLET 137 MCG PO (07:37)
--- NOTE | 2022-07-19 09:15 | PC.NURSE ---
Skin check - No areas of concern. Skin is intact, dry, appropriate color, warm, and elastic. Scab on L great toe, scab on R second toe - no noted problems. Trace edema L foot. 1+ Edema R foot.
--- NOTE | 2022-07-19 11:22 | PC.NURSE ---
Week #1 - ADL's: Comprehensive care plan reviewed, no changes made. Nothing added to temporary care plan. Resident needs one assist with dressing, grooming and bathing. Encourage to participate as much as able. Is able to do oral cares after set up. Independent with feeding. Is on regular diet, thin liquids. No problems with chewing or swallowing reported. Currently resident appetite is poor r/t not feeling well n(had emesis and loose stools). Afebrile. Covid swab testes negative. Vital signs reviewed, no concerns. Pain: Is not on any pain medications. Can have Tylenol pso as needed. Is able to tell when in pain.
[2022-07-19 17:24] VITALS: TEMP 36.7; O2SAT 93
[2022-07-19] MEDS: SENNOSIDES 1 TAB TABLET 2 TAB PO (19:14)
[2022-07-19 23:00] VITALS: TEMP 36.2; O2SAT 93
[2022-07-20 07:00] VITALS: TEMP 36.2; O2SAT 94
--- NOTE | 2022-07-20 07:30 | PC.NURSE ---
WEEKLY CHARTING- WEEK 1: vital signs reviewed with no changes. Temporary and Comprehensive care plan reviewed, no changes made. Resident requires assist of 1 with ADL's : dressing, grooming and bathing. Independent with oral cares and feeding after set ups. Resident is on Regular diet, thin liquids. No problems with chewing or swallowing reported for the past 4 weeks. Currently resident appetite is poor due complains not feeling well (had emesis and loose stools). Afebrile. Covid swab testes negative. Pain: Resident has had no complaints of pain for the past 4 weeks. Resident is on PRN acetaminophen for pain management. Staff to Monitor verbal or non verbal indication of pain.
[2022-07-20] MEDS: LEVOTHYROXINE 25 MCG TABLET 137 MCG PO (07:42)
[2022-07-20 15:00] VITALS: TEMP 36.6; O2SAT 91
[2022-07-20 23:00] VITALS: TEMP 36.3; O2SAT 95
[2022-07-21 07:00] VITALS: TEMP 36.2; O2SAT 94
[2022-07-21] MEDS: SENNOSIDES 1 TAB TABLET 2 TAB PO (07:47)
[2022-07-21] MEDS: LEVOTHYROXINE 25 MCG TABLET 137 MCG PO (07:47)
[2022-07-21 17:24] VITALS: TEMP 36.4; O2SAT 95
[2022-07-21 23:00] VITALS: TEMP 36.5; O2SAT 95
[2022-07-22] MEDS: LEVOTHYROXINE 25 MCG TABLET 137 MCG PO (06:53)
[2022-07-22 10:22] VITALS: TEMP 36.2; O2SAT 96
[2022-07-22 21:16] VITALS: TEMP 36.2; O2SAT 95
[2022-07-22 23:00] VITALS: TEMP 36.3; O2SAT 92
[2022-07-23] MEDS: LEVOTHYROXINE 25 MCG TABLET 137 MCG PO (07:14)
[2022-07-23 09:43] VITALS: TEMP 36.6; O2SAT 97
[2022-07-23 15:00] VITALS: TEMP 36.1; O2SAT 97
[2022-07-23 23:00] VITALS: TEMP 36.5; O2SAT 94
[2022-07-24] MEDS: LEVOTHYROXINE 25 MCG TABLET 137 MCG PO (07:23)
[2022-07-24] MEDS: SENNOSIDES 1 TAB TABLET 2 TAB PO ×2 (07:23→19:06)
[2022-07-24 09:52] VITALS: TEMP 36.1; O2SAT 95
[2022-07-24 15:00] VITALS: TEMP 36.1; O2SAT 92
[2022-07-24 23:00] VITALS: TEMP 36.1; O2SAT 96
[2022-07-25] MEDS: LEVOTHYROXINE 25 MCG TABLET 137 MCG PO (06:46)
[2022-07-25] MEDS: SENNOSIDES 1 TAB TABLET 2 TAB PO ×2 (08:06→19:19)
[2022-07-25 14:41] LABS: SARS PCR* Negative SARS-CoV-2 (Negative)
[2022-07-25 15:00] VITALS: TEMP 36.2; O2SAT 94
[2022-07-25 23:00] VITALS: TEMP 36.3; O2SAT 95
[2022-07-26 07:00] VITALS: BP 100/67; PULSE 57; RESP 20; TEMP 36.7; O2SAT 96; BMI 28.2
[2022-07-26] MEDS: LEVOTHYROXINE 25 MCG TABLET 137 MCG PO (07:47)
[2022-07-26] MEDS: SENNOSIDES 1 TAB TABLET 2 TAB PO ×2 (07:47→19:23)
--- NOTE | 2022-07-26 09:37 | PC.NURSE ---
Skin check - No areas of concern. Skin is dry, intact, warm, appropriate color, and elastic. Slight edema bilateral feet - baseline. Dry skin mid-back - DORENE to apply lotion with morning/evening cares.
--- NOTE | 2022-07-26 13:45 | PC.NURSE ---
WEEKLY CHARTING - WEEK 2: VS reviewed Pt emesis 07/18/22. Tested COVID/Flu A&B - both negative Both side rails d/c'd for pt. Both side rails should be down in pt's room. Pt able to use 1 side rail for positioning purposes when staff are present. Pt able to get in and out of bed independently. Pt able to transfer independently. Pt able to walk independently. Pt uses walker for transfers and ambulation. Pt does not have bed/chair alarms.
[2022-07-26 21:38] VITALS: TEMP 36.4; O2SAT 93
[2022-07-26 23:00] VITALS: TEMP 36.7; O2SAT 95
[2022-07-27] MEDS: LEVOTHYROXINE 25 MCG TABLET 137 MCG PO (07:40)
[2022-07-27] MEDS: SENNOSIDES 1 TAB TABLET 2 TAB PO ×2 (07:40→19:22)
[2022-07-27 10:05] VITALS: TEMP 36.4; O2SAT 93
[2022-07-27 15:00] VITALS: TEMP 36.6; O2SAT 94
[2022-07-27 23:00] VITALS: TEMP 36.8; O2SAT 93
[2022-07-28] MEDS: SENNOSIDES 1 TAB TABLET 2 TAB PO ×2 (07:16→18:56)
[2022-07-28] MEDS: LEVOTHYROXINE 25 MCG TABLET 137 MCG PO (07:16)
[2022-07-28 10:22] VITALS: TEMP 36.2; O2SAT 94
[2022-07-28 21:20] VITALS: TEMP 36.3; O2SAT 93
[2022-07-28 23:00] VITALS: TEMP 36.4; O2SAT 94
[2022-07-29] MEDS: SENNOSIDES 1 TAB TABLET 2 TAB PO ×2 (07:06→19:23)
[2022-07-29] MEDS: LEVOTHYROXINE 25 MCG TABLET 137 MCG PO (07:06)
[2022-07-29 10:30] VITALS: TEMP 36.3; O2SAT 95
[2022-07-29 16:51] VITALS: TEMP 36.4; O2SAT 97
[2022-07-29 23:00] VITALS: TEMP 36.8; O2SAT 94
[2022-07-30 07:00] VITALS: TEMP 36.3; O2SAT 97
[2022-07-30] MEDS: SENNOSIDES 1 TAB TABLET 2 TAB PO ×2 (07:51→19:44)
[2022-07-30] MEDS: LEVOTHYROXINE 25 MCG TABLET 137 MCG PO (07:51)
[2022-07-30 16:46] VITALS: TEMP 36.2; O2SAT 91
[2022-07-30 23:00] VITALS: TEMP 36.9; O2SAT 93
[2022-07-31 07:00] VITALS: TEMP 36.4; O2SAT 93
[2022-07-31] MEDS: SENNOSIDES 1 TAB TABLET 2 TAB PO ×2 (07:32→18:59)
[2022-07-31] MEDS: LEVOTHYROXINE 25 MCG TABLET 137 MCG PO (07:32)
[2022-07-31 16:53] VITALS: TEMP 36.9; O2SAT 96
[2022-07-31 23:00] VITALS: TEMP 36.7; O2SAT 94
[2022-08-01 07:00] VITALS: TEMP 36.6; O2SAT 95
[2022-08-01] MEDS: LEVOTHYROXINE 25 MCG TABLET 137 MCG PO (07:04)
[2022-08-01] MEDS: SENNOSIDES 1 TAB TABLET 2 TAB PO ×2 (07:04→19:33)
--- NOTE | 2022-08-01 11:49 | PC.NURSE ---
COVID OUTBREAK TESTING: Resident provided verbal consent for outbreak COVID testing. Resident is currently asymptomatic. Resident/family will be notified only if resident is positive.
[2022-08-01 14:45] LABS: SARS PCR* POSITIVE SARS-CoV-2 (Negative)
[2022-08-01 15:00] VITALS: TEMP 36.6; O2SAT 94
--- NOTE | 2022-08-01 15:05 | PC.NURSE ---
LAB RESULT: Covid positive result. Infection control nursing called. 1:1 started. to be called. ENVIRONMENTAL TECHNICAL OFFICER Marlen Morris to be called. Resident has no symptoms at this time.
--- NOTE | 2022-08-01 15:20 | PC.NURSE ---
Updated: updated on new lab result of COVID positive. Resident will remain on 1:1 isolation for 10 days. in agreement with starting Paxlovid.
--- NOTE | 2022-08-01 15:35 | PC.NURSE ---
FROG CATCHER Updated/New order: RBVO: Paxlovid 150mg-100mg: take two tabs PO BID x 5 days. DX: Covid 19 positive. [facility] updated with new order. Dosing will begin on 08/02/22 @ 0800.
[2022-08-01 23:00] VITALS: TEMP 36.6; O2SAT 96
--- NOTE | 2022-08-02 04:01 | PC.NURSE ---
WEEKLY CHARTING - WEEK 3: Vital signs reviewed. Temporary and comprehensive care plan reviewed- temporary care plan updated to reflect current covid positive status. No documented skin integrity concerns at this time. Is continent of bowel and bladder with hx of some incontinence r/t urgency. Independent with toileting. Is able to utilize call light appropriately for assistance PRN. Wears pull-up.
[2022-08-02 07:00] VITALS: TEMP 35.7; O2SAT 96
[2022-08-02] MEDS: LEVOTHYROXINE 25 MCG TABLET 137 MCG PO (07:21)
[2022-08-02] MEDS: SENNOSIDES 1 TAB TABLET 2 TAB PO ×2 (07:22→19:12)
--- NOTE | 2022-08-02 07:28 | PC.NURSE ---
Week #3 - Toileting: Comprehensive care plan reviewed, no changes made. Nothing added to temporary care plan. Resident is continent of bowel and bladder. And is independent with toileting: pads, tyshawn cares and clothing management. Will call for assist as needed. Wears own undergarments. And on occasion a large pull up. Vital signs reviewed, no concerns. 08/01 Covid test positive. Requires 1:1 caregiver. Skin: No issues at this time. Skin is routinely checked on bath day & PRN.
[2022-08-02 17:04] VITALS: TEMP 36.3; O2SAT 96
[2022-08-02 23:00] VITALS: TEMP 36.4; O2SAT 94
[2022-08-03 07:00] VITALS: TEMP 36.1; O2SAT 93
[2022-08-03] MEDS: SENNOSIDES 1 TAB TABLET 2 TAB PO ×2 (07:51→20:19)
[2022-08-03] MEDS: LEVOTHYROXINE 25 MCG TABLET 137 MCG PO (07:51)
--- NOTE | 2022-08-03 13:32 | PC.PHA ---
MEDICATION REVIEW MEDICATION MONITORING:No psychopharmacotherapeutics prescribed IRREGULARITY/COMMENTS:Patient is currently taking Paxlovid for Covid+, otherwise no other changes to his medication regimen. Recent thyroid test was WNL while patient taking levothyroxine 137 mcg daily. SUGGESTED COURSE OF ACTION: No medication recommendations for July.
[2022-08-03 15:00] VITALS: TEMP 36.4; O2SAT 96
[2022-08-03 23:00] VITALS: TEMP 36.2; O2SAT 95
[2022-08-04] MEDS: LEVOTHYROXINE 25 MCG TABLET 137 MCG PO (06:58)
[2022-08-04] MEDS: SENNOSIDES 1 TAB TABLET 2 TAB PO ×2 (08:17→19:05)
[2022-08-04 10:30] VITALS: TEMP 36.3; O2SAT 91
--- NOTE | 2022-08-04 13:38 | PC.NURSE ---
Resident status: Resident is still on isolation for Covid with staff 1: 1. He took 100% of breakfast and lunch.He spent time doing cross word in his room.Vitals are WNL T97.3 O2 91%(RA).
[2022-08-04 16:40] VITALS: TEMP 36.4; O2SAT 92
[2022-08-04 23:00] VITALS: TEMP 36.3; O2SAT 94
[2022-08-05] MEDS: LEVOTHYROXINE 25 MCG TABLET 137 MCG PO (07:35)
[2022-08-05] MEDS: SENNOSIDES 1 TAB TABLET 2 TAB PO ×2 (07:37→19:08)
[2022-08-05 10:00] VITALS: TEMP 36.5; O2SAT 95
[2022-08-05 20:53] VITALS: TEMP 36.2; O2SAT 96
[2022-08-05 23:00] VITALS: TEMP 36.9; O2SAT 95
[2022-08-06 07:00] VITALS: TEMP 36.9; O2SAT 95
[2022-08-06] MEDS: LEVOTHYROXINE 25 MCG TABLET 137 MCG PO (07:30)
[2022-08-06] MEDS: SENNOSIDES 1 TAB TABLET 2 TAB PO ×2 (07:30→19:04)
--- NOTE | 2022-08-06 13:45 | PC.NURSE ---
Resident status: Resident is much better, noted having slight cough only. Vitals WNL T: 98.2 O2 95 % (RA) . Still maintain isolation and 1:1 care as per protocol. Had 100% breakfast and lunch. Last dose of Paxlovid BD today.
[2022-08-06 21:11] VITALS: TEMP 36.7; O2SAT 93
[2022-08-06 23:00] VITALS: TEMP 36.9; O2SAT 94
[2022-08-07] MEDS: LEVOTHYROXINE 25 MCG TABLET 137 MCG PO (07:44)
[2022-08-07] MEDS: SENNOSIDES 1 TAB TABLET 2 TAB PO ×2 (08:14→19:31)
[2022-08-07 09:16] VITALS: TEMP 36.8; O2SAT 93
--- NOTE | 2022-08-07 12:44 | PC.NURSE ---
Resident Status: Resident feeling better, no episode of cough this shift. Vitals are WNL T: 98.2 O2 93%(RA) .Ate 80% of breakfast and lunch, took 3 glasses of juices. He informed that he is feeling tired and nap until lunch time on his recliner. He refused cares this morning (wash face , brush teeth or go to toilet).
[2022-08-07 16:47] VITALS: TEMP 36.5; O2SAT 99
[2022-08-07 23:00] VITALS: TEMP 36.8; O2SAT 94
[2022-08-08] MEDS: SENNOSIDES 1 TAB TABLET 2 TAB PO ×2 (08:08→19:08)
[2022-08-08] MEDS: LEVOTHYROXINE 25 MCG TABLET 137 MCG PO (08:08)
[2022-08-08 10:17] VITALS: TEMP 36.8; O2SAT 95
[2022-08-08 15:00] VITALS: TEMP 36.8; O2SAT 95
[2022-08-08 23:00] VITALS: TEMP 37.1; O2SAT 97
--- NOTE | 2022-08-09 04:14 | PC.NURSE ---
WEEK 4 COMMUNICATION,HEARING/VISION, COGNITION/BEHAVIORS CLINICAL MONITORING Vitals stable . Comprehensive care plan reviewed, no changes made. Nothing added to temporary care plan. No changes noted in communication, hearing, vision, orientation ; Resident makes his needs known. Res. needs anticipated by staff. Diagnosed of dementia, which may affect his ability to communicate effectively. He has hearing impairment as evidenced by speaker needing to increase volume and speak distinctly.? He wears glasses. Has cognitive deficit related to progressing dementia. Chronic health condition stable. Does not self administer medications. Mood/Behavior: No issues, he is not on any psychotropic medications.
[2022-08-09 07:00] VITALS: TEMP 36.2; O2SAT 92
[2022-08-09] MEDS: SENNOSIDES 1 TAB TABLET 2 TAB PO ×2 (07:40→19:29)
[2022-08-09] MEDS: LEVOTHYROXINE 25 MCG TABLET 137 MCG PO (07:40)
--- NOTE | 2022-08-09 11:28 | PC.NURSE ---
Week #4: Comprehensive care plan reviewed, no changes made. Nothing added to temporary care plan. No changes noted in communication, hearing, vision, or orientation. Is able to make his needs known. Has hearing difficulties, no device used. Speaker to increase volume and speak distinctly. Has vision impairment corrected by glasses. Has cognitive deficit r/t progressing dementia. Still on isolation for Covid. Nurse administer all medications. Vital signs no concerns. Mood/Behavior: Has one episode of confusion last month which was easily redirected. Is on no psychotropic medications.
[2022-08-09 13:54] VITALS: BP 102/56; PULSE 52; RESP 18; TEMP 36.2; O2SAT 92
[2022-08-09 21:14] VITALS: TEMP 36.3; O2SAT 97
[2022-08-09 23:00] VITALS: TEMP 36.5; O2SAT 94
[2022-08-10 07:00] VITALS: TEMP 35.7; O2SAT 95
[2022-08-10] MEDS: SENNOSIDES 1 TAB TABLET 2 TAB PO ×2 (08:02→19:04)
[2022-08-10] MEDS: LEVOTHYROXINE 25 MCG TABLET 137 MCG PO (08:02)
[2022-08-10 15:00] VITALS: TEMP 36.2; O2SAT 95
[2022-08-10 23:00] VITALS: TEMP 36.3; O2SAT 94
[2022-08-11] MEDS: LEVOTHYROXINE 25 MCG TABLET 137 MCG PO (06:24)
[2022-08-11 07:00] VITALS: TEMP 36.6; O2SAT 96
[2022-08-11] MEDS: SENNOSIDES 1 TAB TABLET 2 TAB PO ×2 (07:42→19:07)
[2022-08-11 15:00] VITALS: TEMP 36.6; O2SAT 96
[2022-08-11 23:00] VITALS: TEMP 36.9; O2SAT 93
[2022-08-12] MEDS: SENNOSIDES 1 TAB TABLET 2 TAB PO ×2 (07:17→19:14)
[2022-08-12] MEDS: LEVOTHYROXINE 25 MCG TABLET 137 MCG PO (07:17)
[2022-08-12 11:06] VITALS: TEMP 36.3; O2SAT 96
[2022-08-12 22:11] VITALS: TEMP 36.6; O2SAT 97
[2022-08-12 23:00] VITALS: TEMP 36.4; O2SAT 95
[2022-08-13 07:00] VITALS: TEMP 36.3; O2SAT 97
[2022-08-13] MEDS: SENNOSIDES 1 TAB TABLET 2 TAB PO ×2 (07:57→19:29)
[2022-08-13] MEDS: LEVOTHYROXINE 25 MCG TABLET 137 MCG PO (07:57)
[2022-08-13 17:01] VITALS: TEMP 37.1; O2SAT 96
[2022-08-13 23:00] VITALS: TEMP 36.7; O2SAT 96
[2022-08-14 07:00] VITALS: TEMP 36.4; O2SAT 94
[2022-08-14] MEDS: LEVOTHYROXINE 25 MCG TABLET 137 MCG PO (07:42)
[2022-08-14] MEDS: SENNOSIDES 1 TAB TABLET 2 TAB PO ×2 (07:42→19:12)
[2022-08-14 17:06] VITALS: TEMP 36.9; O2SAT 95
[2022-08-14 23:00] VITALS: TEMP 36.7; O2SAT 96
[2022-08-15] MEDS: LEVOTHYROXINE 25 MCG TABLET 137 MCG PO (07:33)
[2022-08-15] MEDS: SENNOSIDES 1 TAB TABLET 2 TAB PO ×2 (07:33→19:40)
[2022-08-15 10:09] VITALS: TEMP 36.3; O2SAT 92
[2022-08-15 15:00] VITALS: TEMP 36.8; O2SAT 94
[2022-08-15 23:00] VITALS: TEMP 37.1; O2SAT 95
[2022-08-16] MEDS: LEVOTHYROXINE 25 MCG TABLET 137 MCG PO (07:45)
[2022-08-16] MEDS: SENNOSIDES 1 TAB TABLET 2 TAB PO ×2 (07:45→18:49)
[2022-08-16 09:44] VITALS: BP 104/55; PULSE 71; RESP 16; TEMP 36.4; O2SAT 96; BMI 28.0
[2022-08-16 21:11] VITALS: TEMP 36.9; O2SAT 96
[2022-08-16 23:00] VITALS: TEMP 36.9; O2SAT 94
[2022-08-17 07:00] VITALS: TEMP 36.6; O2SAT 95
[2022-08-17] MEDS: LEVOTHYROXINE 25 MCG TABLET 137 MCG PO (07:59)
[2022-08-17] MEDS: SENNOSIDES 1 TAB TABLET 2 TAB PO ×2 (07:59→19:09)
[2022-08-17 15:00] VITALS: TEMP 36.6; O2SAT 96
[2022-08-17 23:00] VITALS: TEMP 36.6; O2SAT 94
[2022-08-18 07:00] VITALS: TEMP 36.9; O2SAT 94
[2022-08-18] MEDS: LEVOTHYROXINE 25 MCG TABLET 137 MCG PO (07:30)
[2022-08-18] MEDS: SENNOSIDES 1 TAB TABLET 2 TAB PO ×2 (08:04→19:32)
[2022-08-18 15:00] VITALS: TEMP 36.5; O2SAT 95
[2022-08-18 23:00] VITALS: TEMP 36.5; O2SAT 95
[2022-08-19] MEDS: LEVOTHYROXINE 25 MCG TABLET 137 MCG PO (07:35)
[2022-08-19] MEDS: SENNOSIDES 1 TAB TABLET 2 TAB PO ×2 (07:36→19:12)
[2022-08-19 10:22] VITALS: TEMP 36.4; O2SAT 95
[2022-08-19 20:57] VITALS: TEMP 37.1; O2SAT 95
[2022-08-19 23:00] VITALS: TEMP 36.8; O2SAT 94
[2022-08-20] MEDS: LEVOTHYROXINE 25 MCG TABLET 137 MCG PO (07:31)
[2022-08-20] MEDS: SENNOSIDES 1 TAB TABLET 2 TAB PO ×2 (07:32→19:34)
--- NOTE | 2022-08-20 07:50 | PC.NURSE ---
Skin Assessment after bath: Skin is slightly dry, intact, warm, appropriate color, and elastic. Noted bilateral edema ++ . Currently DORENE is applying lotion both morning and evening.during cares.Advise to elevate both feets while sitting on his recliner.
[2022-08-20 09:23] VITALS: TEMP 36.2; O2SAT 95
[2022-08-20 21:10] VITALS: TEMP 36.4; O2SAT 95
[2022-08-20 23:00] VITALS: TEMP 37.1; O2SAT 93
[2022-08-21] MEDS: SENNOSIDES 1 TAB TABLET 2 TAB PO ×2 (07:45→19:03)
[2022-08-21] MEDS: LEVOTHYROXINE 25 MCG TABLET 137 MCG PO (07:45)
[2022-08-21 10:21] VITALS: TEMP 36.7; O2SAT 94
[2022-08-21 20:59] VITALS: TEMP 36.1; O2SAT 92
[2022-08-21 23:00] VITALS: TEMP 36.6; O2SAT 94
[2022-08-22 07:00] VITALS: TEMP 36.2; O2SAT 92
[2022-08-22] MEDS: SENNOSIDES 1 TAB TABLET 2 TAB PO ×2 (07:35→19:44)
[2022-08-22] MEDS: LEVOTHYROXINE 25 MCG TABLET 137 MCG PO (07:35)
[2022-08-22 15:00] VITALS: TEMP 36.6; O2SAT 95
[2022-08-23 02:41] VITALS: TEMP 36.3; O2SAT 98
[2022-08-23 07:00] VITALS: BP 96/61; PULSE 82; RESP 18; TEMP 36.5; O2SAT 98; BMI 28.2
[2022-08-23] MEDS: SENNOSIDES 1 TAB TABLET 2 TAB PO ×2 (07:57→19:06)
[2022-08-23] MEDS: LEVOTHYROXINE 25 MCG TABLET 137 MCG PO (07:57)
--- NOTE | 2022-08-23 08:55 | PC.NURSE ---
Week #1 - ADL's: Comprehensive care plan reviewed, no changes made. Nothing added to temporary care plan. Resident needs one assist with dressing, grooming and bathing. Encourage to participate as much as able. Is able to do oral cares after set up. Independent with feeding. Is on regular diet, thin liquids. No problems with chewing or swallowing reported. Vital signs reviewed, no concerns. Pain: Is not on any pain medications. Can have Tylenol pso as needed. Is able to tell when in pain.
[2022-08-23 21:25] VITALS: TEMP 36.1; O2SAT 97
--- NOTE | 2022-08-23 22:07 | PC.NURSE ---
Weekly Charting: Week 1- Reviewed temporary care plan and noted that last month he had Covid which has resolved. No changes noted to the comprehensive care plan. vital signs are stable.. Receives assist of one staff for bathing and dressing and set up for grooming. Will take self to the bathroom or use the urinal. He has a regular diet without any issues with chewing and coughing or choking. Able to feed self. will take some meals in room and also come to the dining room with encouragement.
[2022-08-23 23:00] VITALS: TEMP 35.8; O2SAT 97
--- NOTE | 2022-08-24 06:51 | PC.NURSE ---
WEEK 1 ; PAIN AND ADL`S No changes made on resident care plan , nothing added to temporary care plan. Resident needs one assist with dressing, grooming and bathing. Encourage to participate as much as able. Is able to do oral cares after set up. Eats independently after set up. Is on regular diet, thin liquids. No problems with chewing or swallowing reported.? Vital signs reviewed, no concerns. Pain: Is not on any pain medications. Can have Tylenol as needed. Is able to tell when in pain.
[2022-08-24] MEDS: SENNOSIDES 1 TAB TABLET 2 TAB PO ×2 (07:31→19:26)
[2022-08-24] MEDS: LEVOTHYROXINE 25 MCG TABLET 137 MCG PO (07:31)
[2022-08-24 09:51] VITALS: TEMP 36.4; O2SAT 94
[2022-08-24 15:00] VITALS: TEMP 36.9; O2SAT 94
[2022-08-24 21:13] VITALS: TEMP 36.9; O2SAT 94
[2022-08-25] MEDS: SENNOSIDES 1 TAB TABLET 2 TAB PO ×2 (07:40→19:09)
[2022-08-25] MEDS: LEVOTHYROXINE 25 MCG TABLET 137 MCG PO (07:40)
[2022-08-25 09:33] VITALS: TEMP 36.9; O2SAT 94
[2022-08-25 20:46] VITALS: TEMP 36.8; O2SAT 91
[2022-08-25 23:00] VITALS: TEMP 37.1; O2SAT 93
[2022-08-26 07:00] VITALS: TEMP 36.6; O2SAT 93
[2022-08-26] MEDS: SENNOSIDES 1 TAB TABLET 2 TAB PO ×2 (07:46→19:06)
[2022-08-26] MEDS: LEVOTHYROXINE 25 MCG TABLET 137 MCG PO (07:46)
--- NOTE | 2022-08-26 14:31 | PC.SOCIAL ---
Phone call to resident's , Louann Mccarty, to discuss adding Barbi ([employer] Mechanic) to resident's care conference. provided Barbi's phone number of [phone]. Informed that this worker will ensure that Barbi is sent a care conference notice with the call in information. Phone call to Barbi ([employer] Mechanic) at [phone]. Left a voicemail requesting her e-mail to send care conference notice for resident. Social Work will follow up as necessary.
[2022-08-26 15:00] VITALS: TEMP 36.3; O2SAT 96
[2022-08-26 23:00] VITALS: TEMP 36.8; O2SAT 94
[2022-08-27 07:00] VITALS: TEMP 36.5; O2SAT 93
[2022-08-27] MEDS: LEVOTHYROXINE 25 MCG TABLET 137 MCG PO (07:05)
[2022-08-27] MEDS: SENNOSIDES 1 TAB TABLET 2 TAB PO ×2 (07:06→19:17)
[2022-08-27 18:32] VITALS: TEMP 36.6; O2SAT 91
[2022-08-27 23:00] VITALS: TEMP 36.7; O2SAT 94
[2022-08-28] MEDS: LEVOTHYROXINE 25 MCG TABLET 137 MCG PO (06:58)
[2022-08-28 07:00] VITALS: TEMP 36.3; O2SAT 93
[2022-08-28] MEDS: SENNOSIDES 1 TAB TABLET 2 TAB PO ×2 (07:37→19:09)
[2022-08-28 21:39] VITALS: TEMP 36.4; O2SAT 98
[2022-08-28 23:00] VITALS: TEMP 36.6; O2SAT 95
[2022-08-29] MEDS: SENNOSIDES 1 TAB TABLET 2 TAB PO ×2 (07:21→19:29)
[2022-08-29] MEDS: LEVOTHYROXINE 25 MCG TABLET 137 MCG PO (07:21)
[2022-08-29 09:45] VITALS: TEMP 36.8; O2SAT 94
[2022-08-29 15:00] VITALS: TEMP 36.8; O2SAT 94
[2022-08-29 23:00] VITALS: TEMP 37.1; O2SAT 96
--- NOTE | 2022-08-30 03:00 | PC.NURSE ---
WEEKLY CHARTING - WEEK 2: Vital signs reviewed - occasional low BP values noted. Temporary and comprehensive care plan reviewed. Temporary care plan updated - recovered from covid. Is independent with transfers, ambulation, and bed mobility. Uses 4WW for ambulation. Bilateral 1/4 side rails as enabler for bed mobility. Is at low risk for falls. Fall interventions: call light and 4WW within reach, remind to use call light when needed, gripper socks, bed brakes locked.
--- NOTE | 2022-08-30 07:38 | PC.NURSE ---
Week #2-Mobility. Comprehensive care plan reviewed, no changes made. Nothing added to temporary care plan. Resident is independent with transfers, ambulation and positioning in bed and chair. Ambulates with a walker. No wheelchair use. 2 1/4 side rails up at all times to promote independence positioning & as requested by patient and . Vital signs reviewed, occasional low BP's. Continue with weekly vital signs monitoring and refer to DIRECTOR OF SEARCH ENGINE OPTIMIZATION/MD as needed. Fall: No falls the past month. Is a low fall risk according to assessment done on 06/30/22.
[2022-08-30] MEDS: LEVOTHYROXINE 25 MCG TABLET 137 MCG PO (07:40)
[2022-08-30] MEDS: SENNOSIDES 1 TAB TABLET 2 TAB PO ×2 (07:41→19:07)
[2022-08-30 09:49] VITALS: BP 90/60; PULSE 67; RESP 18; TEMP 36.4; O2SAT 98
[2022-08-30 10:40] VITALS: BMI 28.3
--- NOTE | 2022-08-30 11:25 | PC.SOCIAL ---
Received a message that Barbi Delaney ([employer] Supervisor) called and left her e-mail address which is [email or web address]. E-mailed care conference notice to Barbi Delaney for resident.
[2022-08-30 16:43] VITALS: TEMP 36.8; O2SAT 95
[2022-08-30 23:00] VITALS: TEMP 36.7; O2SAT 93
[2022-08-31] MEDS: LEVOTHYROXINE 25 MCG TABLET 137 MCG PO (06:53)
[2022-08-31] MEDS: SENNOSIDES 1 TAB TABLET 2 TAB PO ×2 (07:15→19:19)
[2022-08-31 09:25] VITALS: TEMP 36.6; O2SAT 94
--- NOTE | 2022-08-31 11:07 | PC.SPIRITC ---
I provided visit for check in and support.
--- NOTE | 2022-08-31 11:09 | PC.PHA1 ---
COMPENSATION BUSINESS PARTNER PHARMACIST'S MEDICATION REVIEW: MEDICATION MONITORING:No psychotropics prescribed IRREGULARITY OR COMMENTS:No medication changes since last review. Nursing notes reviewed for medication related needs/side effects and none found. No antibiotics or benzodiazepines prescribed. SUGGESTED COURSE OF ACTION TAKEN:No medication concerns or recommendations.
[2022-08-31 15:00] VITALS: TEMP 36.6; O2SAT 98
[2022-08-31 23:00] VITALS: TEMP 36.8; O2SAT 96
[2022-09-01] MEDS: LEVOTHYROXINE 25 MCG TABLET 137 MCG PO (06:50)
[2022-09-01] MEDS: SENNOSIDES 1 TAB TABLET 2 TAB PO ×2 (07:04→19:14)
[2022-09-01 08:59] VITALS: TEMP 36.4; O2SAT 94
--- NOTE | 2022-09-01 14:36 | PC.SOCIAL ---
Met with resident in residents room to complete the PHQ-9. Resident scored a 6 on the assessment. Resident reports feeling depressed nearly everyday (12-14 days) and feeling bad about self nearly everyday (12-14 days). Discussed score with resident and asked resident if resident felt he needed more support (Mental Health therapy) and resident stated he didn't think so, but was not sure. Resident reports feeling depressed 23 1/2 hours a day, every day. Resident reports feeling depressed and feeling bad about himself because someone assumes he should be here at [facility] [place] and resident does not believe he needs to be here. Resident reports that he blames his for being here. Asked resident if he has discussed this with his and he reports that he has tried to but she doesn't let him. Provided an update to Kathryn INMAN. Social work will continue to monitor resident's mood and provide support as necessary.
[2022-09-01 16:28] VITALS: TEMP 36.4; O2SAT 96
[2022-09-01 23:00] VITALS: TEMP 36.8; O2SAT 95
[2022-09-02] MEDS: SENNOSIDES 1 TAB TABLET 2 TAB PO ×2 (07:33→19:07)
[2022-09-02] MEDS: LEVOTHYROXINE 25 MCG TABLET 137 MCG PO (07:33)
[2022-09-02 10:22] VITALS: TEMP 36.3; O2SAT 96
--- NOTE | 2022-09-02 13:06 | PC.NURSE ---
Recert Visit: Resident seen by Dr. Collier. Orders reviewed and renewed of 75 days without changes. Updated of depression scale 6, not taking anything for depression.
[2022-09-02 20:12] VITALS: TEMP 36.4; O2SAT 97
[2022-09-02 23:00] VITALS: TEMP 35.9; O2SAT 93
[2022-09-03] MEDS: LEVOTHYROXINE 25 MCG TABLET 137 MCG PO (06:59)
[2022-09-03] MEDS: SENNOSIDES 1 TAB TABLET 2 TAB PO ×2 (07:56→19:00)
[2022-09-03 09:22] VITALS: TEMP 36.8; O2SAT 95
[2022-09-03 15:36] VITALS: TEMP 36.4; O2SAT 96
[2022-09-03 23:00] VITALS: TEMP 36.4; O2SAT 96
[2022-09-04] MEDS: LEVOTHYROXINE 25 MCG TABLET 137 MCG PO (07:31)
[2022-09-04] MEDS: SENNOSIDES 1 TAB TABLET 2 TAB PO ×2 (07:31→19:05)
[2022-09-04 10:20] VITALS: TEMP 36.4; O2SAT 97
[2022-09-04 16:01] VITALS: TEMP 36.8; O2SAT 98
[2022-09-04 23:00] VITALS: TEMP 36.6; O2SAT 96
[2022-09-05] MEDS: LEVOTHYROXINE 25 MCG TABLET 137 MCG PO (06:49)
[2022-09-05] MEDS: SENNOSIDES 1 TAB TABLET 2 TAB PO ×2 (07:27→19:18)
[2022-09-05 09:58] VITALS: TEMP 36.3; O2SAT 93
--- NOTE | 2022-09-05 10:58 | PC.NURSE ---
COVID OUTBREAK TESTING: Resident provided verbal consent for outbreak COVID testing. Resident is currently asymptomatic. Resident/family will be notified only if resident is positive.
[2022-09-05 11:03] LABS: SARS Antigen* negative (Negative)
[2022-09-05 17:03] VITALS: TEMP 36.4; O2SAT 97
[2022-09-05 23:00] VITALS: TEMP 36.6; O2SAT 96
[2022-09-06] MEDS: SENNOSIDES 1 TAB TABLET 2 TAB PO ×2 (07:56→19:06)
[2022-09-06] MEDS: LEVOTHYROXINE 25 MCG TABLET 137 MCG PO (07:56)
[2022-09-06 12:39] VITALS: BP 84/52; PULSE 74; RESP 18; TEMP 36.3; O2SAT 97; BMI 28.3
[2022-09-06 14:24] VITALS: BMI 28.3
[2022-09-06 20:58] VITALS: TEMP 36.9; O2SAT 98
--- NOTE | 2022-09-06 21:30 | PC.NURSE ---
Weekly Charting-Week 3: Vital signs are stable with blood pressures continuing to be lower per usual. Reviewed comprehensive plans with no changes noted and no changes noted to temporary care plan. Skin is warm and dry with no new skin issues. He continues to have some edema in bilateral feet which is the norm and he elevates his feet in the recliner. He has regular bowel movements that are large soft and formed.. He is continent of bowel and bladder and takes himself to the bathroom. He receives 2 Senna at bedtime every HS.
[2022-09-06 23:00] VITALS: TEMP 36.9; O2SAT 98
[2022-09-07] MEDS: LEVOTHYROXINE 25 MCG TABLET 137 MCG PO (07:15)
[2022-09-07] MEDS: SENNOSIDES 1 TAB TABLET 2 TAB PO ×2 (07:15→19:38)
[2022-09-07 08:58] VITALS: TEMP 36.6; O2SAT 93
[2022-09-07 15:00] VITALS: TEMP 36.6; O2SAT 93
[2022-09-07 23:35] VITALS: TEMP 36.9; O2SAT 96
[2022-09-08] MEDS: LEVOTHYROXINE 25 MCG TABLET 137 MCG PO (08:06)
[2022-09-08] MEDS: SENNOSIDES 1 TAB TABLET 2 TAB PO ×2 (08:06→19:12)
[2022-09-08 10:18] VITALS: TEMP 36.8; O2SAT 95
--- NOTE | 2022-09-08 12:26 | PC.NURSE ---
MDS clarification: Reviewed MDS ADL charting for ANAMIKA 09/08. Interviewed and review done with staff. Resident is independent with bed mobility, transfers, ambulation, locomotion and toileting. Eating is able to feed self after set up. Dressing and Hygiene limited assist of 1 due to cognition. Coded as such in MDS.
--- NOTE | 2022-09-08 20:45 | PC.NURSE ---
Bilateral cerumen impaction noted to bilateral ears. Advised nursing to start mineral oil drops per standing orders. Will reassess after mineral oil drop order complete.
--- NOTE | 2022-09-08 20:53 | PC.NURSE ---
Moderate difficulty with hearing noted. At this time family does not want to pursue a hearing eval or hearing aides due to residents dementia/anxiety.
[2022-09-08 20:54] VITALS: TEMP 36.7; O2SAT 95
[2022-09-08 23:00] VITALS: TEMP 36.8; O2SAT 97
[2022-09-09] MEDS: SENNOSIDES 1 TAB TABLET 2 TAB PO ×2 (07:32→19:35)
[2022-09-09] MEDS: LEVOTHYROXINE 25 MCG TABLET 137 MCG PO (07:32)
[2022-09-09 09:57] VITALS: TEMP 36.5; O2SAT 96
--- NOTE | 2022-09-09 11:12 | PC.NURSE ---
Coughing during meals noted during ANAMIKA period: spoke to staff and they did state that resident had coughing, gaging and difficulty swallowing at times during meals. Resident has had a loss of more teeth. At this time a speech eval and tx order is needed to determine if correct texture of food is being used. Staff to monitor at this time. SWIMMING POOL MAINTENANCE SUPERVISOR updated via board.
[2022-09-09 18:25] VITALS: TEMP 36.8; O2SAT 96
[2022-09-09] MEDS: MINERAL OIL 0.5 ML EAR-BOTH (19:35)
[2022-09-10 00:59] VITALS: TEMP 36.6; O2SAT 94
[2022-09-10 07:00] VITALS: TEMP 36.6; O2SAT 94
[2022-09-10] MEDS: SENNOSIDES 1 TAB TABLET 2 TAB PO ×2 (07:11→19:18)
[2022-09-10] MEDS: LEVOTHYROXINE 25 MCG TABLET 137 MCG PO (07:11)
[2022-09-10 18:18] VITALS: TEMP 36.6; O2SAT 97
[2022-09-10] MEDS: MINERAL OIL 0.5 ML EAR-BOTH (19:18)
[2022-09-11 00:03] VITALS: TEMP 36.9; O2SAT 97
[2022-09-11 07:00] VITALS: TEMP 36.9; O2SAT 97
[2022-09-11] MEDS: LEVOTHYROXINE 25 MCG TABLET 137 MCG PO (07:15)
[2022-09-11] MEDS: SENNOSIDES 1 TAB TABLET 2 TAB PO ×2 (07:15→19:12)
[2022-09-11 17:03] VITALS: TEMP 36.9; O2SAT 93
[2022-09-11] MEDS: MINERAL OIL 0.5 ML EAR-BOTH (19:12)
[2022-09-11 23:00] VITALS: TEMP 36.4; O2SAT 94
[2022-09-12] MEDS: LEVOTHYROXINE 25 MCG TABLET 137 MCG PO (07:05)
[2022-09-12] MEDS: SENNOSIDES 1 TAB TABLET 2 TAB PO ×2 (07:05→19:19)
[2022-09-12 10:39] VITALS: TEMP 36.5; O2SAT 92
--- NOTE | 2022-09-12 11:39 | PC.NURSE ---
COVID OUTBREAK TESTING: Resident provided verbal consent for outbreak COVID testing. Resident is currently asymptomatic. Resident/family will be notified only if resident is positive.
[2022-09-12 12:16] LABS: SARS Antigen* negative (Negative)
[2022-09-12 15:00] VITALS: TEMP 36.5; O2SAT 96
[2022-09-12 23:00] VITALS: TEMP 36.6; O2SAT 93
--- NOTE | 2022-09-13 01:59 | PC.NURSE ---
WEEKLY CHARTING - WEEK 4: Vital signs reviewed. Low BP values noted. Note left in GARMENT FOLDER book for review. Temporary and comprehensive care plan reviewed with no change at this time. No documented behavioral concerns in the last month. No currently receiving any psychotropic medications. Generally sleeps well through the night. No changes r/t communication, hearing, vision, or orientation. No medication changes. All medications administered by licensed nurse. Health condition stable at this time.
[2022-09-13] MEDS: LEVOTHYROXINE 25 MCG TABLET 137 MCG PO (07:20)
[2022-09-13] MEDS: SENNOSIDES 1 TAB TABLET 2 TAB PO ×2 (07:20→19:23)
--- NOTE | 2022-09-13 07:20 | PC.NURSE ---
Week #4: Comprehensive care plan reviewed, no changes made. Nothing added to temporary care plan. No changes noted in communication, hearing, vision, or orientation. Is able to make his needs known. Has hearing difficulties, no device? used. Speaker to increase volume and speak distinctly. Has vision impairment corrected by glasses. Has cognitive deficit r/t progressing dementia. 08/01 Covid positive and has recovered. Chronic health condition stable. Nurse administer all medications. Vital signs with some low BP values. On AUTOMOTIVE GLAZIER book to review. Mood/Behavior: No issues documented the last month. Is on no psychotropic medications.
[2022-09-13 10:06] VITALS: TEMP 36.7; O2SAT 94
[2022-09-13 10:07] VITALS: BP 97/59; PULSE 89; TEMP 36.7; O2SAT 94
[2022-09-13 10:08] VITALS: BMI 28.3
--- NOTE | 2022-09-13 11:38 | PC.NURSE ---
Status/Order: Low BP's, difficulty chewing of meals noted by SILVERING DEPARTMENT SUPERVISOR. Order: Encourage fluids d/t low BP, ST ordered.
--- NOTE | 2022-09-13 13:00 | PC.NURSE ---
Addendum entered by Huyen Nelson RN 09/15/22 12:36: Discussed with Louann regarding order for speech evaluation due to increased episodes of coughing during meals and poor dentition. Informed her that this will happen during the week and we will call her with the results and any changes to residents care plan. Original Note: Q1 CARE CONFERENCE: Nursing, Activities, Dietary, and Social Service team present. present via phone. asked that resident not be present. Reviewed ADLS, transfers and mobility. Resident accepts ADL assistance from staff.? Continues to be reminded by staff that it is time to brush teeth, shave, and change his clothes each morning/evening. Resident has poor dentition, he denies any pain or issues at this time, elects to continue monitoring and would consider having him seen if he was having extreme pain or if it was warmer outside and if there was somewhere for him to be seen close by. She feels that leaving the facility would cause him distress. Resident continues to receive sugar free hot cocoa and oreos daily. His weight is at 220 lbs-stable. Resident is independent with transfers, bed mobility and ambulation, sometimes requires stand-by assistance. Use of 4WW, sometimes needs reminders to use it. Nursing has noted that residents breaks on his walker are not working well anymore-- Louann is aware and noted that she would get him a new one before the weekend. High fall risk. Resident can become easily agitated and becomes fixated on topics such as how much he pays for his room, or why his does not live with him. Mood assessment done and SW noted a change in his mood--he indicated being depressed everyday and feeling bad about himself everyday. SW recommended a therapist referral-- is considering this and will let us know if this is something she would like to pursue for him. states she notices resident is 95% happy but the other times seems a bit down. They still talk everyday at 5pm. She does not want medications reviewed or started for depression at this time. May need to redirect, is usually redirected easily. Resident has dementia. Resident likes to eat breakfast in his room. Will choose if he wants to come out for lunch or dinner. Resident has been coming out frequently for activities, especially enjoys bingo and cards. He also enjoys watching baseball games on the TV in his room-- states that baseball has started again and that Carlos is looking forward to watching. Nursing gives all medications. Care plan reviewed and updated. denies medication list at this time as there have been no significant changes. POLST reviewed. Is DNR/DNI. Uses no restraints.? Does use 2 side rails up to assist with positioning will review/assess for future use.? Vulnerability- is at risk for being harmed due to weakness and balance. No plans for discharge. No questions/concerns at this time. is happy with his care.
[2022-09-13 18:26] VITALS: TEMP 36.4; O2SAT 98
[2022-09-13 23:00] VITALS: TEMP 36.6; O2SAT 95
[2022-09-14] MEDS: SENNOSIDES 1 TAB TABLET 2 TAB PO ×2 (07:19→19:49)
[2022-09-14] MEDS: LEVOTHYROXINE 25 MCG TABLET 137 MCG PO (07:19)
--- NOTE | 2022-09-14 09:30 | PC.SOCIAL ---
Held resident's care conference on 09/13/2022 at 1:00 pm. Resident's , Louann Mccarty, participated by phone. Resident's [facility] morning caregiver, Barbi Delaney, was not in attendance due to an emergency. Updates from Huyen Quinonez in Nursing, Zohreh Perea in Nutrition, Radha Engel in Life Enrichment, and this worker from Social Work. Resident's care plan was reviewed. This worker discussed that resident expressed feeling depressed and feeling bad about himself nearly every day, which was a change since the last mood assessment. This worker informed resident's that [facility] has an in house mental health therapist and offered a referral to the therapist if felt it would be beneficial for resident. Informed resident's that she can think about it and this worker can follow up. stated she would like to think about it. informed that she does not want resident to have any dental work done unless resident is in pain and she does not want resident to travel any further than [place] for dental services. Resident's stated that there is another facility in [place] that offers dental in house at the [facility]. Huyen informed resident's that administration is reviewing the in house services and looking to see what can be provided in house for services.
[2022-09-14 10:06] VITALS: TEMP 36.7; O2SAT 96
[2022-09-14] MEDS: guaiFENesin 100 MG/ML CUP PO (10:16)
--- NOTE | 2022-09-14 10:35 | PC.NURSE ---
Speech eval: recommendation soft and bite size due to coughing at meal during visit. STEEL LAYER board updated for order.
--- NOTE | 2022-09-14 10:38 | PC.NURSE ---
Status Note: Resident experiencing hoarseness of voice and coughing. Lung sound clear in all soni, No SOB, afebrile. House standing order Robitussin 10ml given.
[2022-09-14 11:30] LABS: SARS Antigen* Negative (Negative)
[2022-09-14 12:09] LABS: Influenza Type A Negative (Negative); Influenza Type B Negative (Negative)
--- NOTE | 2022-09-14 13:16 | PC.NURSE ---
Family Update: here, resident coughing noted by her. Is aware resident tested for Covid and Influenza. Results negative for both. Contacted and updated.
--- NOTE | 2022-09-14 13:17 | PC.NURSE ---
SARS antigen and Flu specimen collected and sent to lab. Res ate lunch in his room.
[2022-09-14 15:00] VITALS: TEMP 36.9; O2SAT 94
[2022-09-14 19:46] VITALS: TEMP 37.4
[2022-09-14] MEDS: ACETAMINOPHEN 325 MG TABLET 650 MG PO (19:46)
[2022-09-14 21:55] VITALS: TEMP 36.7
--- NOTE | 2022-09-14 22:28 | PC.NURSE ---
Health Status. ?Resident voice sounds hoarse and C/O general body weakness. Vital signs obtained were normal with the exception of body temperature which was 99.9. PRN Tylenol 650 mg given at 1946. Temp dropped to 98.2 two hours after Tylenol was administered. Will continue to monitor.
[2022-09-14 23:00] VITALS: TEMP 37; O2SAT 91
[2022-09-15] MEDS: LEVOTHYROXINE 25 MCG TABLET 137 MCG PO (07:28)
[2022-09-15] MEDS: SENNOSIDES 1 TAB TABLET 2 TAB PO ×2 (07:28→19:01)
[2022-09-15 10:19] VITALS: TEMP 36.6; O2SAT 93
--- NOTE | 2022-09-15 13:15 | PC.NURSE ---
Status: FORESTRY FARM LABORER here updated resident continue with cough, low grade temp, Covid & Flu test negative. Chest X-ray ordered.
--- NOTE | 2022-09-15 14:05 | CRLHL7_ITS ---
For Patients: As a result of the Century Cures Act, medical imaging exams and procedure reports are released immediately into your electronic medical record. You may view this report before your referring provider. If you have questions, please contact your health care provider. INDICATION: Cough, fever. TECHNIQUE: Chest 1 views. COMPARISON: September 2018. FINDINGS: Rotation to the right. Lungs: Normal lung volume. No consolidation. Patchy heterogeneous airspace opacities overlying the right lung zone which may be secondary to summation artifact from rotation versus developing infectious process. Pleura: No pleural effusion or pneumothorax. Heart and Mediastinum: Normal heart size. The great vessels of the thorax are unremarkable. Bones: No acute displaced osseous process. IMPRESSION: Patchy heterogeneous airspace opacities overlying the right lung zone which may be secondary to summation artifact from rotation versus developing infectious process. Dictated by Abisai Suggs MD @ 09/15/2022 5:11:06 PM (Electronically Signed)
--- NOTE | 2022-09-15 14:38 | PC.SOCIAL ---
Phone call to resident's , Louann Mccarty, to discuss the mental health therapy services that were offered for resident. Louann states that she is not opposed to having a mental health therapist see resident so resident can talk about his feelings and would like to pursue the therapy services. This worker will complete a referral for the in house therapist to see resident. Informed resident's if she has any further questions she can reach out to the social work department. Social work will continue to follow up as necessary.
[2022-09-15 21:34] VITALS: TEMP 36.9; O2SAT 95
--- NOTE | 2022-09-15 22:34 | PC.NURSE ---
Chest xray results: Impression: Patchy heterogeneous airspace opacities overlying the right lung zone which may be secondary to summation artifact from rotation vs. developing infectious process.
[2022-09-15 23:00] VITALS: TEMP 37.5; O2SAT 90
[2022-09-16 07:00] VITALS: TEMP 37.1; O2SAT 93
[2022-09-16] MEDS: SENNOSIDES 1 TAB TABLET 2 TAB PO ×2 (07:33→19:15)
[2022-09-16] MEDS: LEVOTHYROXINE 25 MCG TABLET 137 MCG PO (07:33)
--- NOTE | 2022-09-16 13:00 | PC.NURSE ---
CRITICAL CARE EDUCATOR updated on chest x-ray results. Continue to monitor. Unable to determine if it is infectious process or normal lung appearance due to only being a single view.?LAMAR from October 2020 says no ABO treatment.
--- NOTE | 2022-09-16 16:44 | PC.SOCIAL ---
Phone call to Louann Mccarty, Resident's . Informed Louann that this worker needs to have Louann sign the consent form to complete the referral for mental health therapy. Louann will be in this weekend to visit. This worker will leave the form with Nursing Staff. Louann states that she has noticed that resident is not acting the same as he typically does puzzles and hasn't had interest in the last 10 days. Social work will follow up as necessary.
[2022-09-16 21:02] VITALS: TEMP 36.9; O2SAT 94
[2022-09-16 23:00] VITALS: TEMP 36.6; O2SAT 91
[2022-09-17] MEDS: LEVOTHYROXINE 25 MCG TABLET 137 MCG PO (07:01)
[2022-09-17] MEDS: SENNOSIDES 1 TAB TABLET 2 TAB PO ×2 (07:01→19:23)
[2022-09-17 13:06] VITALS: TEMP 36.9; O2SAT 95
--- NOTE | 2022-09-17 13:19 | PC.NURSE ---
Bath Assessment : Both feet are slightly edematous. Noted a small dry scab on his right 4th toe.
[2022-09-17 16:45] VITALS: TEMP 37; O2SAT 95
[2022-09-17 23:00] VITALS: TEMP 36.5; O2SAT 94
[2022-09-18] MEDS: LEVOTHYROXINE 25 MCG TABLET 137 MCG PO (06:43)
[2022-09-18] MEDS: SENNOSIDES 1 TAB TABLET 2 TAB PO ×2 (07:32→19:05)
[2022-09-18 09:43] VITALS: TEMP 37.1; O2SAT 95
[2022-09-18 16:31] VITALS: TEMP 36.9; O2SAT 97
[2022-09-18 21:28] VITALS: TEMP 36.5; O2SAT 95
[2022-09-19] MEDS: LEVOTHYROXINE 25 MCG TABLET 137 MCG PO (06:53)
[2022-09-19 07:00] VITALS: TEMP 36.4; O2SAT 93
[2022-09-19] MEDS: SENNOSIDES 1 TAB TABLET 2 TAB PO ×2 (07:14→19:23)
--- NOTE | 2022-09-19 10:00 | PC.NURSE ---
COVID OUTBREAK TESTING Residents gave verbal consent for outbreak COVID testing. Resident is currently asymptomatic.? Resident/family will be notified only if resident is positive.
[2022-09-19 10:31] LABS: SARS Antigen* negative (Negative)
[2022-09-19 15:00] VITALS: TEMP 36.2; O2SAT 93
[2022-09-19 23:00] VITALS: TEMP 36.3; O2SAT 93
[2022-09-20] MEDS: LEVOTHYROXINE 25 MCG TABLET 137 MCG PO (06:57)
--- NOTE | 2022-09-20 06:59 | PC.NURSE ---
WEEK 1 WEEKLY CHARTING : PAIN AND ADL`s Vital signs reviewed, no concerns. Comprehensive care plan reviewed, no changes made. Temporary care plan remains the same. Resident needs one assist with dressing, grooming and bathing, encourage to participate as much as able. Resident is able to do oral cares after set up. Independent at meals, he is on regular diet, thin liquids ;no problems with chewing or swallowing. Pain: Is not on any pain medications. Can have Tylenol as needed, able to voice pain and discomfort
[2022-09-20 07:00] VITALS: BP 79/52; PULSE 69; RESP 18; TEMP 36.6; O2SAT 93; BMI 28.0
[2022-09-20] MEDS: SENNOSIDES 1 TAB TABLET 2 TAB PO ×2 (07:12→19:48)
--- NOTE | 2022-09-20 07:50 | PC.NURSE ---
Week #1 - ADL's: Comprehensive & temporary care plan reviewed, no changes made. Nothing added to temporary care plan. Resident needs one assist with dressing, grooming and bathing. Encourage to participate as much as able. Is able to do oral cares after set up. Independent with feeding. 09/15/22 diet changed to regular, soft and bite sized texture thin liquids d/t coughing at meals. Diet well tolerated.? Vital signs reviewed. Low BP's addressed with LACE SEWER. Recommends push fluids. Continue with weekly VS monitoring. Pain: Is not on any pain medications. Has an order for Tylenol 650mg Q6H PRN and has used once last month for leg pain with relief. Is able to tell when in pain.
--- NOTE | 2022-09-20 10:34 | PC.SPIRITC ---
I provided visit for connection and support.
--- NOTE | 2022-09-20 11:03 | PC.SOCIAL ---
Received consent form signed by resident's to consent to mental health therapy services for resident. Completed referral and faxed to [facility] at [phone]. E-mail sent to Rosalind Rollins ([facility] therapist) to inform that new referral was completed for resident and faxed to [facility]. Social work will follow up as necessary.
[2022-09-20 21:24] VITALS: TEMP 36.7; O2SAT 96
[2022-09-20 23:51] VITALS: TEMP 36.8; O2SAT 93
[2022-09-21 07:00] VITALS: TEMP 36.2; O2SAT 95
[2022-09-21] MEDS: LEVOTHYROXINE 25 MCG TABLET 137 MCG PO (07:16)
[2022-09-21] MEDS: SENNOSIDES 1 TAB TABLET 2 TAB PO ×2 (07:16→19:43)
[2022-09-21 15:00] VITALS: TEMP 36.7; O2SAT 94
[2022-09-21 23:00] VITALS: TEMP 36.8; O2SAT 93
[2022-09-22 07:00] VITALS: TEMP 36.4; O2SAT 93
[2022-09-22] MEDS: SENNOSIDES 1 TAB TABLET 2 TAB PO ×2 (07:05→19:14)
[2022-09-22] MEDS: LEVOTHYROXINE 25 MCG TABLET 137 MCG PO (07:05)
[2022-09-23 07:00] VITALS: TEMP 36.8; O2SAT 95
[2022-09-23] MEDS: LEVOTHYROXINE 25 MCG TABLET 137 MCG PO (07:01)
[2022-09-23] MEDS: SENNOSIDES 1 TAB TABLET 2 TAB PO ×2 (07:01→19:17)
--- NOTE | 2022-09-23 16:12 | PC.SOCIAL ---
Phone call to resident's , Louann Mccarty, to discuss walker for resident. Louann [facility] and Barbi informed her that [facility] is responsible for getting resident a walker. Resident's stated if [facility] is responsible then she would like [facility] to get the walker. This worker informed this worker will consult with gravity prospecting supervisor and call back. Consulted with gravity prospecting supervisor. [facility] is responsible to get walker. Provided information to resident's . Resident's states she just wants resident to have a standard walker. This worker informed that [facility] will look into this further. Social work will follow up as necessary.
[2022-09-24] MEDS: SENNOSIDES 1 TAB TABLET 2 TAB PO ×2 (07:31→19:27)
[2022-09-24] MEDS: LEVOTHYROXINE 25 MCG TABLET 137 MCG PO (07:31)
[2022-09-24 10:19] VITALS: TEMP 36.1; O2SAT 94
[2022-09-25 07:00] VITALS: TEMP 36.5; O2SAT 95
[2022-09-25] MEDS: SENNOSIDES 1 TAB TABLET 2 TAB PO ×2 (07:13→19:46)
[2022-09-25] MEDS: LEVOTHYROXINE 25 MCG TABLET 137 MCG PO (07:13)
[2022-09-25 23:00] VITALS: BP 112/76; PULSE 74; RESP 16; TEMP 36.7; O2SAT 93
--- NOTE | 2022-09-26 04:01 | LTC.FALL ---
[facility] Fall Note: o Fall Date:09/26/2022 o Fall Time:0330 o What happened? Resident put recreation facilities supervisor light because he had fallen o Who found the resident and who responded? V BELT INSPECTOR responded to call light and notified this nurse and other V BELT INSPECTOR. o What was the resident doing? Resident reported that he had been to the toilet and was returning to bed and fell. o How the resident was found (knees, left side, arm under them), any hazards (cords, objects, nonskid slippers) brakes on? Proper equipment? Resident was found lying between the bed and recliner with with head toward the head of bad and feet toward armoire. o Did you assess for head trauma, spinal injuries, skeletal injuries, neurological changes and status, and head and neck pain? What did you find? Resident denies hitting head with no noted signs of head trauma. Denies any pain. o Did you assess ROM in shoulders, elbows, hips, knees, any other affected areas, unless there is suspected spinal injury. ROM completed to all extremities without difficulty and WNL. Denies any pain. o Did you Assess for pain or discomfort? Denies any pain/discomfort at this time. Noted with small amount of blood on left shirt sleeve. Skin tear present. o What are the injuries and how are they being treated? V-shaped skin tear present on left forearm. Area cleaned. Wound edges approximated. Single steri-strip applied. Covered with telfa, wrapped with kerlix, and secured with tape. o How was the resident transferred from the floor? Assist of 2 with gait belt. o Did you call the MD or put a note in the ACETONE BUTTON PASTER book? Note in ACETONE BUTTON PASTER book. o Enter vital signs. 98.1-74-16-112/76-93% on RA. o Did you notify family? Will have AM shift notify. o What was the root cause of the fall? Why did it happen? Toileting independently at night. o Create an IMMEDIATE INTERVENTION to ensure that this won't immediately happen again. (Put in temporary care plan too) Broadcast Correspondent spoke with resident and states that he usually get up to the toilet x1 during the night. Resident is agreeable to staff accompanying him to the toilet at 0200 Q Night. o Complete Safety report and huddle (now one form) o If resident is seen in ED or fractured something, note that you started a [facility] Report process. Instructions are at the [facility] nurse's desk in a red binder labeled [facility] report.
[2022-09-26] MEDS: LEVOTHYROXINE 25 MCG TABLET 137 MCG PO (07:28)
[2022-09-26] MEDS: SENNOSIDES 1 TAB TABLET 2 TAB PO ×2 (07:28→19:42)
[2022-09-26 07:31] VITALS: BP 105/70; PULSE 72; RESP 16; TEMP 36.5; O2SAT 95
--- NOTE | 2022-09-26 07:33 | PC.NURSE ---
Fall F/U. Res is alert and oriented. Denies pain. VSS Temp 97.7, BP 105/70, RR 16 regular, HR 72, regular. PERRLA, BLE and BUE strong auto garage mechanic and move freely.
[2022-09-26 08:51] VITALS: TEMP 36.5; O2SAT 95
--- NOTE | 2022-09-26 09:30 | PC.NURSE ---
Podiatry: Seen by glue jointer operator, no order.
[2022-09-26 11:41] VITALS: BP 99/53; PULSE 65; RESP 18; TEMP 36.6; O2SAT 96
--- NOTE | 2022-09-26 11:47 | PC.NURSE ---
FALL F/U: Res is alert and oriented, BP 99/53, encourage to increase fluid intake. Temp 97.9, RR 16, HR65, 02 sat 96% room air. Neuro and ROM within normal, Denies any pain. Provided education to call staff when He goes to the bathroom for safety issue.
[2022-09-26 15:00] VITALS: BP 103/59; PULSE 59; RESP 18; TEMP 36; O2SAT 97
[2022-09-26 18:54] VITALS: BP 105/73; PULSE 67; RESP 18; TEMP 36.2; O2SAT 95
--- NOTE | 2022-09-26 21:52 | PC.NURSE ---
Fall follow up Resident did not try to self transfer ; he participated on group activity, was in his room mostly, watching TV. Vitals are normal, no concerns .
[2022-09-26 23:00] VITALS: BP 101/60; PULSE 64; RESP 18; TEMP 36.4; O2SAT 94
[2022-09-27] VITALS (8 sets, daily range): BP systolic 84–106; BP diastolic 54–63; PULSE 60–71; RESP 16–18; TEMP 36.4–36.6; O2SAT 94–95; BMI 27.7
--- NOTE | 2022-09-27 01:09 | PC.NURSE ---
WEEKLY CHARTING - WEEK 2: Vital signs reviewed - low BP values noted. Staff continue to encourage fluid intake. Temporary and comprehensive care plan reviewed - no change. Independent with transfers, ambulation, and bed mobility. Uses 4WW for ambulation. Bilateral 1/4 side rails as enabler for bed mobility. Per latest fall risk assessment, is at low risk for falls. Fall interventions: call light and 4WW within reach, remind to use call light when needed, gripper socks, bed brakes locked, staff to assist resident to the toilet at 0200.
--- NOTE | 2022-09-27 04:44 | PC.NURSE ---
FALL FOLLOW-UP: Vital signs stable and documented. BP values slightly low at 101/60 and 106/57. Fluid intake encouraged. Continues to deny any pain.
[2022-09-27] MEDS: LEVOTHYROXINE 25 MCG TABLET 137 MCG PO (06:34)
[2022-09-27] MEDS: SENNOSIDES 1 TAB TABLET 2 TAB PO ×2 (07:05→20:37)
--- NOTE | 2022-09-27 07:49 | PC.NURSE ---
Week #2 - Mobility: Comprehensive and temporary care plan reviewed. No changes made, nothing added to temporary care plan. Resident is independent with transfers and ambulation using a walker. Independent with bed/chair mobility. No wheelchair use. No alarms. Two 1/4 side rails up at all times to aid with bed positioning. Vital signs reviewed, BP constant low values. ORE GRADER/MD aware. Staff to continue push fluids. Continue with weekly vital signs monitoring. Fall: No falls the past month. Had a fall on 09/26/22 with no injury. Remains a low fall risk according to assessment done on 09/08/22. Fall interventions: Call light within reach, bed in low position locked, gripper socks, walker at bedside, staff to assist resident to toilet @ 0200.
--- NOTE | 2022-09-27 07:53 | PC.NURSE ---
Fall F/U: Resident awoken easily when approach to check vitals and Neuro. BP 98/58, encourage fluid intake. No complain of pain. Res had shower packaging specialist. Nuero and ROM within normal.
--- NOTE | 2022-09-27 11:14 | PC.NURSE ---
Fall F/U: Alert and oriented. Has Hypotension 84/54, Temp 97.9, RR 16, HR 71, 02 sat 94%. Neuro and ROM within normal. Encourage fluid intake. Res denies pain.
--- NOTE | 2022-09-27 13:33 | PC.NURSE ---
Family Update: contacted again to update of resident fall on 09/26/22. Per she didn't get the message left yesterday.
[2022-09-28 03:00] VITALS: BP 99/56; PULSE 64; RESP 18; TEMP 36.5; O2SAT 95
--- NOTE | 2022-09-28 03:10 | PC.NURSE ---
FALL FOLLOW-UP: Vital signs at baseline - slightly hypotensive. Continue to encourage fluid intake. ROM to extremities WNL. Denies any pain. Cooperative with new fall intervention. Staff accompanied resident to toilet at 0200.
[2022-09-28 07:00] VITALS: BP 110/74; PULSE 64; RESP 16; TEMP 36.2; O2SAT 96
[2022-09-28] MEDS: SENNOSIDES 1 TAB TABLET 2 TAB PO ×2 (07:35→19:14)
[2022-09-28] MEDS: LEVOTHYROXINE 25 MCG TABLET 137 MCG PO (07:36)
--- NOTE | 2022-09-28 14:30 | PC.PHA1 ---
ELECTRIC TRIPPER MACHINE OPERATOR PHARMACIST'S MEDICATION REVIEW: MEDICATION MONITORING: No psychotropic medications to report IRREGULARITY OR COMMENTS:Patient taking levothyroxine and senna on daily basis, all other profiled medication orders are prn. Patient did convey need for mental health referral at last care conference and per recent nursing notes this appointment is in process and being addressed. SUGGESTED COURSE OF ACTION TAKEN: No medication concerns at this time.
--- NOTE | 2022-09-28 15:53 | PC.SPIRITC ---
Late entry from 09/27/2022: I provided visit for support and connection.
[2022-09-29 07:00] VITALS: TEMP 36.4; O2SAT 95
[2022-09-29] MEDS: SENNOSIDES 1 TAB TABLET 2 TAB PO ×2 (07:35→19:25)
[2022-09-29] MEDS: LEVOTHYROXINE 25 MCG TABLET 137 MCG PO (07:35)
[2022-09-29 21:30] VITALS: TEMP 36.3; O2SAT 93
[2022-09-29 23:41] VITALS: TEMP 36.8; O2SAT 92
[2022-09-30 06:50] VITALS: TEMP 36.5; O2SAT 95
[2022-09-30] MEDS: LEVOTHYROXINE 25 MCG TABLET 137 MCG PO (07:37)
[2022-09-30] MEDS: SENNOSIDES 1 TAB TABLET 2 TAB PO ×2 (07:38→19:27)
[2022-09-30 15:00] VITALS: TEMP 36.8; O2SAT 94
[2022-10-01 00:14] VITALS: TEMP 36.9; O2SAT 95
[2022-10-01] MEDS: SENNOSIDES 1 TAB TABLET 2 TAB PO ×2 (07:21→19:40)
[2022-10-01] MEDS: LEVOTHYROXINE 25 MCG TABLET 137 MCG PO (07:21)
[2022-10-01 09:46] VITALS: TEMP 36.3; O2SAT 94
[2022-10-01 15:00] VITALS: TEMP 37; O2SAT 100
[2022-10-01 23:55] VITALS: TEMP 36.8; O2SAT 94
[2022-10-02] MEDS: LEVOTHYROXINE 25 MCG TABLET 137 MCG PO (06:46)
[2022-10-02] MEDS: SENNOSIDES 1 TAB TABLET 2 TAB PO ×2 (07:30→19:25)
[2022-10-02 09:55] VITALS: TEMP 36.3; O2SAT 96
[2022-10-02 15:00] VITALS: TEMP 36.6; O2SAT 95
[2022-10-02 23:44] VITALS: TEMP 36.9; O2SAT 92
[2022-10-03 07:00] VITALS: TEMP 36.4; O2SAT 95
[2022-10-03] MEDS: LEVOTHYROXINE 25 MCG TABLET 137 MCG PO (07:54)
[2022-10-03] MEDS: SENNOSIDES 1 TAB TABLET 2 TAB PO ×2 (07:55→20:21)
--- NOTE | 2022-10-03 10:00 | PC.NURSE ---
COVID OUTBREAK TESTING Resident and residents verbal consent for outbreak COVID testing. Resident is currently asymptomatic.? Resident/family will be notified only if resident is positive.
[2022-10-03 10:56] LABS: SARS Antigen* N (Negative)
[2022-10-03 15:00] VITALS: TEMP 36.6; O2SAT 95
[2022-10-03 23:51] VITALS: TEMP 36.7; O2SAT 94
--- NOTE | 2022-10-04 01:01 | PC.NURSE ---
Weekly charting Week 3: Vital signs reviewed, BP constant low, ROAD GRADER aware. Temporary and comprehensive care plan reviewed. No changes made. Has skin tear on Left forearm, cleanse with wound cleanser, steri strip on, adaptic warp with kerlix and tape. Skin checked every bath day. Res is independent with toileting, continent of bowel and bladder. Able to use the call light for toileting, tyshawn cares, under garment management as needed. Wear large pull ups, Assist resident to toilet at 0200 NOC.
[2022-10-04 07:00] VITALS: BP 112/62; PULSE 61; RESP 20; TEMP 36.7; O2SAT 94; BMI 27.7
[2022-10-04] MEDS: SENNOSIDES 1 TAB TABLET 2 TAB PO ×2 (07:26→19:42)
[2022-10-04] MEDS: LEVOTHYROXINE 25 MCG TABLET 137 MCG PO (07:26)
--- NOTE | 2022-10-04 07:39 | PC.NURSE ---
Week #3 - Toileting: Comprehensive care plan reviewed, no changes made. Nothing added to temporary care plan. Resident is continent of bowel and bladder. And is independent with toileting: pads, tyshawn cares and clothing management. Will call for assist as needed. Wears own undergarments. And on occasion a large pull up. Vital signs reviewed, constant low BP's. DIRECTOR OF ASSISTED LIVING aware. Continue weekly VS monitoring. Skin: Has a skin tear on(L) forearm from fall, is steri stripped. Skin is routinely checked on bath day & PRN.
[2022-10-04 22:33] VITALS: TEMP 36.3; O2SAT 99
[2022-10-04 23:00] VITALS: TEMP 36.6; O2SAT 95
[2022-10-05 07:00] VITALS: TEMP 36.7; O2SAT 96
[2022-10-05] MEDS: SENNOSIDES 1 TAB TABLET 2 TAB PO ×2 (07:34→20:15)
[2022-10-05] MEDS: LEVOTHYROXINE 25 MCG TABLET 137 MCG PO (07:34)
--- NOTE | 2022-10-05 14:08 | PC.SOCIAL ---
Received an e-mail from Rosalind Rollins at [facility] informing that she will be in on MondayOctober 07 to see resident for mental health therapy.
[2022-10-05 15:00] VITALS: TEMP 36.6; O2SAT 98
[2022-10-05 23:00] VITALS: TEMP 36.7; O2SAT 97
[2022-10-06] MEDS: SENNOSIDES 1 TAB TABLET 2 TAB PO ×2 (07:47→19:17)
[2022-10-06] MEDS: LEVOTHYROXINE 25 MCG TABLET 137 MCG PO (07:47)
[2022-10-06 10:07] VITALS: TEMP 36.2; O2SAT 94
--- NOTE | 2022-10-06 10:47 | PC.NURSE ---
Wound care: Skin tear intervention is completed. The wound is left to open air.
[2022-10-06 15:04] VITALS: TEMP 36.3; O2SAT 96
[2022-10-06 23:00] VITALS: TEMP 36.6; O2SAT 96
[2022-10-07 07:00] VITALS: TEMP 36.3; O2SAT 96
[2022-10-07] MEDS: LEVOTHYROXINE 25 MCG TABLET 137 MCG PO (07:32)
[2022-10-07] MEDS: SENNOSIDES 1 TAB TABLET 2 TAB PO ×2 (07:32→19:08)
[2022-10-07 17:06] VITALS: TEMP 36.8; O2SAT 95
[2022-10-07 23:00] VITALS: TEMP 36.6; O2SAT 96
[2022-10-08 07:00] VITALS: TEMP 36.4; O2SAT 96
[2022-10-08] MEDS: LEVOTHYROXINE 25 MCG TABLET 137 MCG PO (07:50)
[2022-10-08] MEDS: SENNOSIDES 1 TAB TABLET 2 TAB PO ×2 (07:50→19:29)
[2022-10-08 10:06] VITALS: BMI 27.6
[2022-10-08 16:48] VITALS: TEMP 36.7; O2SAT 96
[2022-10-08 23:00] VITALS: TEMP 36.7; O2SAT 96
[2022-10-09 07:00] VITALS: TEMP 36.3; O2SAT 96
[2022-10-09] MEDS: LEVOTHYROXINE 25 MCG TABLET 137 MCG PO (07:49)
[2022-10-09] MEDS: SENNOSIDES 1 TAB TABLET 2 TAB PO ×2 (07:49→19:04)
[2022-10-09 16:40] VITALS: TEMP 36.6; O2SAT 92
[2022-10-09 23:00] VITALS: TEMP 36.9; O2SAT 96
[2022-10-10 07:00] VITALS: TEMP 36.8; O2SAT 95
[2022-10-10] MEDS: SENNOSIDES 1 TAB TABLET 2 TAB PO ×2 (07:25→20:11)
[2022-10-10] MEDS: LEVOTHYROXINE 25 MCG TABLET 137 MCG PO (07:25)
--- NOTE | 2022-10-10 09:01 | PC.NURSE ---
Resident reports he had a medium formed BM yesterday(10/09/22) when asked.
[2022-10-10 11:46] LABS: SARS Antigen* negative (Negative)
--- NOTE | 2022-10-10 11:48 | PC.NURSE ---
COVID OUTBREAK TESTING Resident and residents verbal consent for outbreak COVID testing. Resident is currently asymptomatic.? Resident/family will be notified only if resident is positive.
[2022-10-10 15:00] VITALS: TEMP 36.1; O2SAT 100
[2022-10-10 23:00] VITALS: TEMP 36.8; O2SAT 94
--- NOTE | 2022-10-11 00:49 | PC.NURSE ---
WEEKLY CHARTING - WEEK 4: Vital signs reviewed. Low diastolic BP values. Staff continue to encourage fluid intake. Temporary and comprehensive care plan reviewed - no change. No documented behaviors in the last month. No psychotropic medications. Able to communicate needs. Staff also anticipate needs. Moderate hearing impairment. Staff adjust volume and tone of voice accordingly. Visual impairment is corrected with glasses. Moderate cognitive impairment r/t dementia. Staff offer simple choices and encourage decisions. No medication changes. All medications administered by licensed nurse. Health condition stable at this time.
--- NOTE | 2022-10-11 06:33 | PC.NURSE ---
Week #4: Comprehensive and temporary care plan reviewed. No changes made and nothing added to temporary care plan. No changes noted in communication, hearing vision or orientation.Resident does communicate needs and use the call light. Vision corrected by glasses. Has moderate hearing impairment. No device used. Speak distinctly and adjust tone of voice. Has moderate cognitive deficit r/t progressing dementia. Nurse administer all medications. Vital signs reviewed, still with low BP values noted by TERMITE CONTROL REPRESENTATIVE, to push fluids and continue weekly monitoring. Is on no BP medications. Mood/Behavior: No issues the past month. Is on no psychotropic medications.
[2022-10-11] MEDS: LEVOTHYROXINE 25 MCG TABLET 137 MCG PO (07:09)
[2022-10-11] MEDS: SENNOSIDES 1 TAB TABLET 2 TAB PO ×2 (07:09→19:26)
[2022-10-11 09:55] VITALS: BP 104/65; PULSE 57; RESP 16; TEMP 36.4; O2SAT 95; BMI 27.6
--- NOTE | 2022-10-11 12:08 | PC.SPIRITC ---
I provided visit for support and connection.
[2022-10-11 21:24] VITALS: TEMP 36.4; O2SAT 96
[2022-10-11 23:00] VITALS: TEMP 36.4; O2SAT 94
[2022-10-12 07:00] VITALS: TEMP 36.3; O2SAT 96
[2022-10-12] MEDS: SENNOSIDES 1 TAB TABLET 2 TAB PO ×2 (07:51→20:07)
[2022-10-12] MEDS: LEVOTHYROXINE 25 MCG TABLET 137 MCG PO (07:51)
[2022-10-12 15:00] VITALS: TEMP 36.9; O2SAT 94
[2022-10-12 23:00] VITALS: TEMP 36.9; O2SAT 97
[2022-10-13 07:00] VITALS: TEMP 36.8; O2SAT 97
[2022-10-13] MEDS: LEVOTHYROXINE 25 MCG TABLET 137 MCG PO (07:30)
[2022-10-13] MEDS: SENNOSIDES 1 TAB TABLET 2 TAB PO ×2 (08:39→19:30)
[2022-10-13 16:49] VITALS: TEMP 36.6; O2SAT 94
[2022-10-13 23:00] VITALS: TEMP 36.8; O2SAT 96
[2022-10-14] MEDS: LEVOTHYROXINE 25 MCG TABLET 137 MCG PO (06:36)
[2022-10-14] MEDS: SENNOSIDES 1 TAB TABLET 2 TAB PO ×2 (07:17→20:14)
[2022-10-14 10:29] VITALS: TEMP 36.6; O2SAT 95
[2022-10-14 15:00] VITALS: TEMP 36.9; O2SAT 98
[2022-10-14 23:36] VITALS: TEMP 36.4; O2SAT 95
[2022-10-15] MEDS: LEVOTHYROXINE 25 MCG TABLET 137 MCG PO (07:00)
[2022-10-15] MEDS: SENNOSIDES 1 TAB TABLET 2 TAB PO ×2 (07:00→20:12)
[2022-10-15 10:11] VITALS: TEMP 36.8; O2SAT 96
[2022-10-15 15:00] VITALS: TEMP 37.1; O2SAT 98
[2022-10-15 23:53] VITALS: TEMP 36.9; O2SAT 97
[2022-10-16] MEDS: LEVOTHYROXINE 25 MCG TABLET 137 MCG PO (07:23)
[2022-10-16] MEDS: SENNOSIDES 1 TAB TABLET 2 TAB PO ×2 (07:23→19:43)
[2022-10-16 09:43] VITALS: TEMP 36.2; O2SAT 96
[2022-10-16 15:00] VITALS: TEMP 36.3; O2SAT 98
[2022-10-16 23:36] VITALS: TEMP 36.9; O2SAT 94
[2022-10-17 07:00] VITALS: TEMP 36.4; O2SAT 96
[2022-10-17] MEDS: LEVOTHYROXINE 25 MCG TABLET 137 MCG PO (07:59)
[2022-10-17] MEDS: SENNOSIDES 1 TAB TABLET 2 TAB PO ×2 (07:59→19:28)
--- NOTE | 2022-10-17 11:04 | PC.NURSE ---
COVID OUTBREAK TESTING Resident and residents family gave verbal consent for outbreak COVID testing. Resident is currently asymptomatic.? Resident/family will be notified only if resident is positive.
[2022-10-17 11:17] LABS: SARS Antigen* negative (Negative)
[2022-10-17 15:00] VITALS: TEMP 36.2; O2SAT 93
[2022-10-18 01:13] VITALS: TEMP 36.7; O2SAT 97
--- NOTE | 2022-10-18 01:46 | PC.NURSE ---
Weekly Charting week 1: Vital sings reviewed. Has Hypotension reading, CERTIFIED WELLNESS PROGRAM COORDINATOR aware, recommended to push fluids, Continue weekly monitoring. Comprehensive care plan reviewed no changes made. Nothing added to temporary care plan. No verbal an non verbal of Pain in the past month. Has PRN acetaminophen 625mg available to pain. Requires 1 staff assist of bathing, grooming. Staff encourage to participate, Able to brush teeth independently. On Soft and bite size r/t history of coughing during meal. Able to eat independently after set up.
[2022-10-18 07:00] VITALS: BP 106/71; PULSE 55; RESP 16; TEMP 36.3; O2SAT 95; BMI 27.6
[2022-10-18] MEDS: SENNOSIDES 1 TAB TABLET 2 TAB PO ×2 (07:44→19:06)
[2022-10-18] MEDS: LEVOTHYROXINE 25 MCG TABLET 137 MCG PO (07:44)
--- NOTE | 2022-10-18 09:54 | PC.NURSE ---
Week #1: Comprehensive and temporary care plan reviewed. No changes made & nothing added to temporary care plan. Resident needs one assist with dressing, grooming and bathing. And he is able to participate. Independent with oral cares and feeding after set up. Is on regular diet, soft & bite texture, thin liquids. No coughing with meals or problems reported with swallowing. Vital signs reviewed, no concerns. Continue weekly monitoring. Pain: No complain the past month. Has an order for Tylenol 650mg Q6H PRN. He can tell when in pain and staff also anticipates.
[2022-10-18 17:07] VITALS: TEMP 36.6; O2SAT 98
[2022-10-18 23:00] VITALS: TEMP 36.7; O2SAT 95
[2022-10-19 07:00] VITALS: TEMP 36.9; O2SAT 94
[2022-10-19] MEDS: SENNOSIDES 1 TAB TABLET 2 TAB PO ×2 (07:24→19:23)
[2022-10-19] MEDS: LEVOTHYROXINE 25 MCG TABLET 137 MCG PO (07:24)
[2022-10-19 15:00] VITALS: TEMP 36.6; O2SAT 94
[2022-10-19 23:00] VITALS: TEMP 36.7; O2SAT 96
[2022-10-20] MEDS: SENNOSIDES 1 TAB TABLET 2 TAB PO ×2 (07:23→19:08)
[2022-10-20] MEDS: LEVOTHYROXINE 25 MCG TABLET 137 MCG PO (07:23)
[2022-10-20 09:35] VITALS: TEMP 36.2; O2SAT 94
[2022-10-20 15:07] VITALS: TEMP 36.7; O2SAT 92
[2022-10-20 23:00] VITALS: TEMP 36.8; O2SAT 94
[2022-10-21 07:00] VITALS: TEMP 36.8; O2SAT 96
[2022-10-21] MEDS: SENNOSIDES 1 TAB TABLET 2 TAB PO ×2 (07:01→19:15)
[2022-10-21] MEDS: LEVOTHYROXINE 25 MCG TABLET 137 MCG PO (07:01)
[2022-10-21 15:00] VITALS: TEMP 36.7; O2SAT 97
[2022-10-21 23:00] VITALS: TEMP 36.8; O2SAT 94
[2022-10-22 07:00] VITALS: TEMP 36.5; O2SAT 97
[2022-10-22] MEDS: LEVOTHYROXINE 25 MCG TABLET 137 MCG PO (07:25)
[2022-10-22] MEDS: SENNOSIDES 1 TAB TABLET 2 TAB PO ×2 (07:25→19:19)
[2022-10-22 16:57] VITALS: TEMP 36.5; O2SAT 97
[2022-10-22 23:00] VITALS: TEMP 36.8; O2SAT 96
[2022-10-23 07:00] VITALS: TEMP 36.6; O2SAT 97
[2022-10-23] MEDS: SENNOSIDES 1 TAB TABLET 2 TAB PO ×2 (07:37→19:20)
[2022-10-23] MEDS: LEVOTHYROXINE 25 MCG TABLET 137 MCG PO (07:37)
[2022-10-23 15:00] VITALS: TEMP 36.8; O2SAT 98
[2022-10-23 23:00] VITALS: TEMP 36.8; O2SAT 92
[2022-10-24] MEDS: LEVOTHYROXINE 25 MCG TABLET 137 MCG PO (06:53)
[2022-10-24 07:00] VITALS: TEMP 36.8; O2SAT 95
[2022-10-24] MEDS: SENNOSIDES 1 TAB TABLET 2 TAB PO ×2 (07:20→19:17)
--- NOTE | 2022-10-24 12:22 | PC.NURSE ---
COVID OUTBREAK TESTING Resident and residents verbal consent for outbreak COVID testing. Resident is currently asymptomatic.? Resident/family will be notified only if resident is positive.
[2022-10-24 12:35] LABS: SARS Antigen* N (Negative)
[2022-10-24 15:00] VITALS: TEMP 37.2; O2SAT 96
[2022-10-24 23:00] VITALS: TEMP 36.7; O2SAT 92
--- NOTE | 2022-10-25 02:10 | PC.NURSE ---
WEEKLY CHARTING - WEEK 2: Vital signs reviewed - no concerns. Temporary and comprehensive care plan reviewed - no change. Independent with transfers, ambulation, and bed mobility. Uses 4WW for ambulation. 1/4 side rails bilaterally as enabler for independent bed mobility. At low risk for falls per last fall risk assessment. Fall interventions: remind to use call light when needed, gripper socks, call light and 4WW within reach, bed brakes locked, staff to assist resident to the toilet at 0200. Had fall on 09/26 with minor injury - skin tear.
[2022-10-25 06:59] VITALS: BMI 27.7
[2022-10-25 07:00] VITALS: BP 130/69; PULSE 56; RESP 20; TEMP 36.3; O2SAT 97
[2022-10-25] MEDS: LEVOTHYROXINE 25 MCG TABLET 137 MCG PO (07:01)
[2022-10-25] MEDS: SENNOSIDES 1 TAB TABLET 2 TAB PO ×2 (07:01→19:05)
--- NOTE | 2022-10-25 07:52 | PC.NURSE ---
Weekly Charting- Week 2 - Mobility: Comprehensive and temporary care plan reviewed. No changes made, nothing added to temporary care plan. Resident is independent with transfers and ambulation using a 4w walker. Independent with bed/chair mobility. No wheelchair use. No alarms. Bilateral 1/4 side rails up at all times to aid with bed positioning. Vital signs reviewed, no concerns at this time. Continue with weekly vital signs monitoring. Fall: Had a fall on 09/26/22 with minor injury, skin tear on (L) forearm. Remains a low fall risk according to assessment done on 09/08/22. Fall interventions: Call light within reach, bed in low position locked, gripper socks, walker at bedside, reminder to call for assist, staff to assist resident to toilet @ 0200.
--- NOTE | 2022-10-25 11:44 | PC.SPIRITC ---
I provided visit for connection and support.
--- NOTE | 2022-10-25 12:07 | PC.NURSE ---
Recert Visit: Resident seen by WOOD FILLERArturo. Orders reviewed and renewed of 75 days with changes. Order: Discontinue Ondansetron 4mg PO Q6H PRN.
[2022-10-25 15:00] VITALS: TEMP 36.6; O2SAT 98
[2022-10-25 23:00] VITALS: TEMP 36.7; O2SAT 93
[2022-10-26 07:00] VITALS: TEMP 36.6; O2SAT 95
[2022-10-26] MEDS: SENNOSIDES 1 TAB TABLET 2 TAB PO ×2 (07:58→19:26)
[2022-10-26] MEDS: LEVOTHYROXINE 25 MCG TABLET 137 MCG PO (07:58)
--- NOTE | 2022-10-26 10:03 | PC.PHA1 ---
GEOSPATIAL PROGRAM MANAGEMENT OFFICER PHARMACIST'S MEDICATION REVIEW: MEDICATION MONITORING:No psychotropic medications to monitor. IRREGULARITY OR COMMENTS:Patient has been depressed but MD and devised plan to monitor symptoms as this could be seasonal. No other medication regimen changes since last review. SUGGESTED COURSE OF ACTION TAKEN:No medication recommendations this review.
[2022-10-26 15:00] VITALS: TEMP 36.8; O2SAT 97
[2022-10-26 23:00] VITALS: TEMP 36.6; O2SAT 95
[2022-10-27] MEDS: SENNOSIDES 1 TAB TABLET 2 TAB PO ×2 (07:31→19:07)
[2022-10-27] MEDS: LEVOTHYROXINE 25 MCG TABLET 137 MCG PO (07:31)
[2022-10-27 10:14] VITALS: TEMP 36.6; O2SAT 95
[2022-10-27 15:00] VITALS: TEMP 36.5; O2SAT 97
[2022-10-27 23:00] VITALS: TEMP 36.8; O2SAT 95
[2022-10-28 07:00] VITALS: TEMP 36.8; O2SAT 95
[2022-10-28] MEDS: LEVOTHYROXINE 25 MCG TABLET 137 MCG PO (07:28)
[2022-10-28] MEDS: SENNOSIDES 1 TAB TABLET 2 TAB PO ×2 (07:28→19:03)
[2022-10-28 16:55] VITALS: TEMP 36.5; O2SAT 94
[2022-10-28 23:54] VITALS: TEMP 36.4; O2SAT 96
[2022-10-29] MEDS: LEVOTHYROXINE 25 MCG TABLET 137 MCG PO (07:22)
[2022-10-29] MEDS: SENNOSIDES 1 TAB TABLET 2 TAB PO ×2 (07:22→19:13)
[2022-10-29 10:48] VITALS: TEMP 36.4; O2SAT 97
[2022-10-29 14:53] VITALS: TEMP 36.2; O2SAT 98
[2022-10-29 23:45] VITALS: TEMP 36.7; O2SAT 93
[2022-10-30] MEDS: SENNOSIDES 1 TAB TABLET 2 TAB PO ×2 (07:37→19:03)
[2022-10-30] MEDS: LEVOTHYROXINE 25 MCG TABLET 137 MCG PO (07:37)
[2022-10-30 10:43] VITALS: TEMP 36.2; O2SAT 95
[2022-10-30 16:59] VITALS: TEMP 36.3; O2SAT 98
[2022-10-30 23:43] VITALS: TEMP 36.7; O2SAT 93
[2022-10-31 07:00] VITALS: TEMP 36.9; O2SAT 93
[2022-10-31] MEDS: SENNOSIDES 1 TAB TABLET 2 TAB PO ×2 (07:12→19:22)
[2022-10-31] MEDS: LEVOTHYROXINE 25 MCG TABLET 137 MCG PO (07:12)
--- NOTE | 2022-10-31 11:31 | PC.NURSE ---
COVID OUTBREAK TESTING Resident and residents verbal consent for outbreak COVID testing. Resident is currently asymptomatic.? Resident/family will be notified only if resident is positive.
[2022-10-31 11:47] LABS: SARS Antigen* negative (Negative)
[2022-10-31 15:00] VITALS: TEMP 36.6; O2SAT 95
[2022-10-31 23:00] VITALS: TEMP 36.7; O2SAT 94
--- NOTE | 2022-11-01 02:40 | PC.NURSE ---
WEEKLY CHARTING WEEK 3 TOILETING AND SKIN Vital signs reviewed?, are good except his blood pressure which is low these days. Nurse Practitioner is aware but no med has been prescribed. Comprehensive care plan reviewed, no changes made,nothing added to temporary care plan. Resident is continent of bowel and bladder and is independent with toileting. Independent with , wears large pull up tyshawn cares and clothing management. Skin: two unknown fading bruises on top of right hand. Pitting +1 edema on both lower extremities.
[2022-11-01] MEDS: LEVOTHYROXINE 25 MCG TABLET 137 MCG PO (06:56)
[2022-11-01 07:00] VITALS: BP 94/58; PULSE 67; RESP 18; TEMP 36.8; O2SAT 96; BMI 28.0
[2022-11-01] MEDS: SENNOSIDES 1 TAB TABLET 2 TAB PO ×2 (07:02→19:34)
--- NOTE | 2022-11-01 09:27 | PC.NURSE ---
WEEKLY CHARTING - Week 3: Toileting & Skin : Vital signs reviewed and has a low B/P which N/P and doctor are aware and requires no medication currently. Comprehensive care plan reviewed, no changes made. Nothing added to temporary care plan. Resident is continent of bowel and bladder and is independent with toileting: pads, tyshawn cares and clothing management. He only call for assist for get drinks and as needed. Wears own undergarments. And on occasion a large pull up. Skin: Resident has 2 fading bruise on his right hand which he does not know where he got it from. Resident also has slight edematous of his feet .Skin tear from previous fall has totally heal.
[2022-11-01 16:50] VITALS: TEMP 36.6; O2SAT 97
[2022-11-01 23:00] VITALS: TEMP 36.8; O2SAT 93
[2022-11-02 07:00] VITALS: TEMP 36.9; O2SAT 93
[2022-11-02] MEDS: SENNOSIDES 1 TAB TABLET 2 TAB PO ×2 (07:20→19:14)
[2022-11-02] MEDS: LEVOTHYROXINE 25 MCG TABLET 137 MCG PO (07:20)
[2022-11-03] MEDS: SENNOSIDES 1 TAB TABLET 2 TAB PO ×2 (07:01→19:21)
[2022-11-03] MEDS: LEVOTHYROXINE 25 MCG TABLET 137 MCG PO (07:01)
[2022-11-04] MEDS: LEVOTHYROXINE 25 MCG TABLET 137 MCG PO (07:43)
[2022-11-04] MEDS: SENNOSIDES 1 TAB TABLET 2 TAB PO ×2 (07:43→19:17)
[2022-11-05] MEDS: LEVOTHYROXINE 25 MCG TABLET 137 MCG PO (07:59)
[2022-11-05] MEDS: SENNOSIDES 1 TAB TABLET 2 TAB PO ×2 (07:59→19:48)
--- NOTE | 2022-11-05 11:09 | PC.NURSE ---
Resident has a bump measuring 4X3 cm on his right posterior temporal, no redness and no pain noted. Resident and was not aware of the bump. To note to Kathryn MALDONADO)
[2022-11-06] MEDS: LEVOTHYROXINE 25 MCG TABLET 137 MCG PO (06:50)
[2022-11-06] MEDS: SENNOSIDES 1 TAB TABLET 2 TAB PO ×2 (07:47→19:19)
[2022-11-07] MEDS: SENNOSIDES 1 TAB TABLET 2 TAB PO ×2 (07:14→19:06)
[2022-11-07] MEDS: LEVOTHYROXINE 25 MCG TABLET 137 MCG PO (07:14)
--- NOTE | 2022-11-07 10:54 | PC.NURSE ---
Assessed bump on his right posterior temporal area per nurses notes on 11/05/22. Unable to determine concern. No area of concern at this time. Resident stated I'm not sure what all the fuss is about.
--- NOTE | 2022-11-07 10:59 | PC.NURSE ---
Assessed skin tear to left great toe. Appears resident may have received the area of concern when pushing/pulling his bedside table with his foot. Measurements 0.8 x 1 cm. Area covered with band-aid. No s/s infection. No drainage on band-aid. Resident denies pain.
--- NOTE | 2022-11-08 01:35 | PC.NURSE ---
WEEKLY CHARTING - WEEK 4: Vital signs reviewed. Continues with some low BP values. Continue to monitor and update provider as needed. Temporary and comprehensive care plan reviewed - no change. No behaviors documented in the last 30 days. Not currently on any psychotropic medications. Able to communicate needs effectively. Staff anticipate needs as well. Hearing is moderately impaired. Staff adjust voice as needed. Visual deficit is corrected with glasses. Moderate cognitive impairment r/t dementia. All medications administered by licensed nurse. Health condition currently stable.
[2022-11-08 06:45] VITALS: BMI 27.9
--- NOTE | 2022-11-08 06:58 | PC.NURSE ---
Weekly Charting - Week4: Comprehensive and temporary care plan reviewed. No changes made and nothing added to temporary care plan. No changes noted in communication, hearing vision or orientation.Resident does communicate needs and use the call light. Vision corrected by glasses. Has moderate hearing impairment. No device used. Speak distinctly and adjust tone of voice. Has moderate cognitive deficit r/t progressing dementia. Nurse administer all medications. Vital signs reviewed, BP's some lows per his baseline. Is on no BP medications. Continue weekly monitoring, refer to provider as needed. Mood/Behavior: No issues the past month. Is on no psychotropic medications.
[2022-11-08 07:00] VITALS: BP 120/71; PULSE 67; RESP 20; TEMP 36.4; O2SAT 98
[2022-11-08] MEDS: SENNOSIDES 1 TAB TABLET 2 TAB PO ×2 (07:02→19:26)
[2022-11-08] MEDS: LEVOTHYROXINE 25 MCG TABLET 137 MCG PO (07:02)
--- NOTE | 2022-11-08 10:30 | PC.NURSE ---
Assessed abrasion to left great toe with SWIMMER. At this time tx to leave open to air. No pain. No drainage. No s/s infection.
[2022-11-09] MEDS: LEVOTHYROXINE 25 MCG TABLET 137 MCG PO (07:34)
[2022-11-09] MEDS: SENNOSIDES 1 TAB TABLET 2 TAB PO ×2 (07:34→19:34)
[2022-11-10] MEDS: SENNOSIDES 1 TAB TABLET 2 TAB PO ×2 (07:33→19:04)
[2022-11-10] MEDS: LEVOTHYROXINE 25 MCG TABLET 137 MCG PO (07:33)
--- NOTE | 2022-11-10 09:40 | PC.SPIRITC ---
provided visit for support, connection, and to give Carlos a [employer] baseball schedule.
[2022-11-11] MEDS: LEVOTHYROXINE 25 MCG TABLET 137 MCG PO (06:31)
[2022-11-11] MEDS: SENNOSIDES 1 TAB TABLET 2 TAB PO ×2 (07:19→19:32)
[2022-11-12] MEDS: SENNOSIDES 1 TAB TABLET 2 TAB PO ×2 (07:31→19:01)
[2022-11-12] MEDS: LEVOTHYROXINE 25 MCG TABLET 137 MCG PO (07:31)
[2022-11-13] MEDS: LEVOTHYROXINE 25 MCG TABLET 137 MCG PO (07:16)
[2022-11-13] MEDS: SENNOSIDES 1 TAB TABLET 2 TAB PO ×2 (07:16→19:04)
[2022-11-14] MEDS: SENNOSIDES 1 TAB TABLET 2 TAB PO ×2 (07:29→19:23)
[2022-11-14] MEDS: LEVOTHYROXINE 25 MCG TABLET 137 MCG PO (07:29)
--- NOTE | 2022-11-14 16:55 | PC.NURSE ---
Health concern: Radha reported walking with this resident to his room due to what appears to be unsteady gait, after BINGO. Follow-up assessment done - resident denies weakness, pain, numbness, and or tingling to lower extremity. Also denies dizziness, or lightheadedness. Had no recollection of the reported health episode. Vitals signs obtained are as follows: BP- 118/78, P- 64, Temp- 98.4, 02- 94%, Resp- 18, Pain- 0. Will continue to monitor.
[2022-11-14 17:40] VITALS: BP 117/65; PULSE 63; RESP 20; TEMP 37.1; O2SAT 99
--- NOTE | 2022-11-14 18:00 | LTC.FALL ---
[facility] Fall Note: o Fall Date: 11/14/22 o Fall Time: 173 o What happened? Fall Incident: Approximately 173, as he attempted to sit on a chair to eat dinner, this resident fell because he misjudged the position of the chair. o Who found the resident and who responded? Staff present in the dinning room. Nurse assigned to resident, (this ad copy writer) o What was the resident doing? Trying to sit on a chair. o How the resident was found (knees, left side, arm under them), any hazards (cords, objects, nonskid slippers) brakes on? Proper equipment? He was on a supine position, head off the floor, and hands on the lateral sides of his body. Had nonskid socks on. o Did you assess for head trauma, spinal injuries, skeletal injuries, neurological changes and status, and head and neck pain? What did you find? Did not hit his head, but skin tear measuring 0.8 cm X 0.7 cm, and 2cm X 1..2 cm bruise to right elbow observed. Steri Strips applied over skin skin flap and wrapped with Kerlix. o Did you assess ROM in shoulders, elbows, hips, knees, any other affected areas, unless there is suspected spinal injury. Was able to perform ROM without C/O to lower back or legs. No other injuries besides the skin tear. o Did you Assess for pain or discomfort? Yes, resident denied pain or discomfort. With supervision, he was able to walk to his room without difficulty. o What are the injuries and how are they being treated? Skin tear measuring 0.8 cm X 0.7 cm, and 2cm X 1..2 cm bruise to right elbow observed. Steri Strips applied over skin skin flap and wrapped with Kerlix. o How was the resident transferred from the floor? With 3 assist. o Did you call the MD or put a note in the QC SCIENTIST book? Noted in QC SCIENTIST book. o Enter vital signs. BP 117/65, P- 63, Temp- 98.8, 02- 99, Resp- 20, Pain- 0 Did you notify family? Yes, Louann Mccarty o What was the root cause of the fall? Why did it happen? Confusion o Create an IMMEDIATE INTERVENTION to ensure that this won't immediately happen again. (Put in temporary care plan too) o Complete Safety report and huddle (now one form) o If resident is seen in ED or fractured something, note that you started a [facility] Report process. Instructions are at the East nurse's desk in a red binder labeled VA report.
--- NOTE | 2022-11-14 18:00 | PC.NURSE ---
Fall Incident: Approximately 1734, as he attempted to sit on a chair to eat dinner, this resident fell because he misjudged the position of the chair. Incident occurred in the dinning room. Skin tear measuring 0.8 cm X 0.7 cm, and 2cm X 1..2 cm bruise to right elbow observed. Steri Strips applied over skin skin flap and wrapped with Kerlix. Appropriate Health Care Agent would be notified.
--- NOTE | 2022-11-14 21:56 | PC.NURSE ---
Family Update: Louann Mccarty was notified and updated on the fall incident that occurred at 1735, in the dinning room, via telephone. Verbalized appreciation for calling.
[2022-11-14 22:11] VITALS: BP 118/68; PULSE 64; RESP 18; TEMP 36.9; O2SAT 95
--- NOTE | 2022-11-15 00:49 | PC.NURSE ---
WEEKLY CHARTING WEEK 1 Vital signs reviewed. Noted hypotension, INTERNET MARKETING STRATEGIST aware. weekly check during bath days. Comprehensive and Temporary care plan reviewed. Temporary care added Fall 11/14/22. missed a chair that he was trying to on in the dinning area. Comprehensive care plan updated. Pain. resident is not on pain medication. no complain of pain. ADLS. Res is mostly independent most of the time, sometimes needs1 staff limited assist with bathing and dressing. No changes of appetite, On regular diet with thin liquids. No swallowing issue noted.
[2022-11-15 02:11] VITALS: BP 98/61; PULSE 70; RESP 17; TEMP 36.7; O2SAT 94
[2022-11-15 06:00] VITALS: BP 105/61; PULSE 74; RESP 18; TEMP 36.7; O2SAT 93
[2022-11-15] MEDS: LEVOTHYROXINE 25 MCG TABLET 137 MCG PO (06:57)
[2022-11-15 07:00] VITALS: BMI 27.6
[2022-11-15] MEDS: SENNOSIDES 1 TAB TABLET 2 TAB PO ×2 (07:15→19:07)
[2022-11-15 09:58] VITALS: BP 93/58; PULSE 69; RESP 18; TEMP 37.3; O2SAT 96
--- NOTE | 2022-11-15 10:08 | LTC.FALL ---
[facility] Fall Note: o Fall Date: o Fall Time: o What happened? o Who found the resident and who responded? o What was the resident doing? o How the resident was found (knees, left side, arm under them), any hazards (cords, objects, nonskid slippers) brakes on? Proper equipment? o Did you assess for head trauma, spinal injuries, skeletal injuries, neurological changes and status, and head and neck pain? What did you find? o Did you assess ROM in shoulders, elbows, hips, knees, any other affected areas, unless there is suspected spinal injury. o Did you Assess for pain or discomfort? o What are the injuries and how are they being treated? o How was the resident transferred from the floor? o Did you call the MD or put a note in the ELECTION ASSISTANT book? o Enter vital signs. o Did you notify family? o What was the root cause of the fall? Why did it happen? o Create an IMMEDIATE INTERVENTION to ensure that this won't immediately happen again. (Put in temporary care plan too) o Complete Safety report and huddle (now one form) o If resident is seen in ED or fractured something, note that you started a VA Report process. Instructions are at the East nurse's desk in a red binder labeled VA report.
--- NOTE | 2022-11-15 10:08 | PC.NURSE ---
Fall follow- ups note: Resident has no verbal or nonverbal indications of pain noted or reported at this time. He in and out the BR independently and ambulated to bath-tub using his walker with staff supervision. He ate breakfast in his room per usual self. Resident Alert and oriented per usual self. Pupil equal and reactive to light. Hand grasps noted to be equal when compared bilaterally. VS: 93/58, P69, Temp 99.1, R18, O2 sat 96% on RA. Resident has been able to move all four extremities per usual self this shift.
--- NOTE | 2022-11-15 12:54 | PC.NURSE ---
Weekly Charting, Week 1 - ADL's: Comprehensive & temporary care plan reviewed, no changes made. Nothing added to temporary care plan. Resident needs one assist with dressing, grooming and bathing. Encourage to participate as much as able. Is able to do oral cares after set up. Independent with feeding. Is on regular, soft and bite sized texture thin liquids d/t coughing at meals. Diet well tolerated.? Vital signs reviewed. BP's low per his baseline, noted by provider. No complain of hypotensive symptoms. Is on no BP medications. Recommends push fluids. Continue with weekly VS monitoring. Pain: No issues the past month. Has an order for Tylenol 650mg Q6h PRN. Is able to tell when in pain & staff also anticipates.
--- NOTE | 2022-11-15 13:08 | REH.PT ---
Screened by PT: Pt appears at baseline with regards to functional mobility. Able to transfer Ind sit<>stand and amb with 4ww throughout shelter environment. Recommend pt continue to use 4ww with all gait. Skilled PT not warranted at this time.
[2022-11-15 13:21] VITALS: BP 105/72; PULSE 65; RESP 18; TEMP 37.2; O2SAT 96
--- NOTE | 2022-11-15 13:45 | PC.NURSE ---
Fall follow- ups note @ 1400 VS: Bp 105/72, P 65, T 99, R 18, O2 sat 96% on RA. Resident denied pain, no nonverbal indications of pain noted or reported at this shift. He ate both meals in his room per usual. Resident Alert and oriented per usual self. Pupil equal and reactive to light. Hand grasps noted to be equal when compared bilaterally. Resident has been able to move all four extremities per usual self this shift. Will continues to monitor.
[2022-11-15 18:00] VITALS: BP 107/68; PULSE 75; RESP 16; TEMP 37.2; O2SAT 92
[2022-11-15 21:37] VITALS: BP 109/71; PULSE 63; RESP 18; TEMP 37.7; O2SAT 97
--- NOTE | 2022-11-15 21:45 | PC.NURSE ---
Resident resting in his recliner most of the shift, no complain of pain, continue on post fall monitoring and vitals check x 2 this shift with temp elevated and Resident does have episode of increase confusion, ROM remains intact to all extremities and note put in MAIN LINE ASSEMBLER book about Resident increase confusion and elevated temp.
[2022-11-16 02:00] VITALS: BP 110/67; PULSE 74; RESP 18; TEMP 37.4; O2SAT 92
[2022-11-16 05:41] VITALS: BP 108/70; PULSE 68; RESP 18; TEMP 37.5; O2SAT 94
--- NOTE | 2022-11-16 05:44 | PC.NURSE ---
FALL FOLLOW UP: Has slept well through the night. Vital signs 99.4-74-18-110/67-92% at 0200 and 99.5-68-18-108/70-94% at this time. Denies any pain when asked. ROM to all extremities WNL. No increased confusion noted this shift.
[2022-11-16] MEDS: SENNOSIDES 1 TAB TABLET 2 TAB PO ×2 (07:08→19:36)
[2022-11-16] MEDS: LEVOTHYROXINE 25 MCG TABLET 137 MCG PO (07:08)
[2022-11-16 09:40] VITALS: BP 89/53; PULSE 76; RESP 20; TEMP 37.1; O2SAT 94
--- NOTE | 2022-11-16 09:50 | PC.NURSE ---
Fall followup vital signs completed: B/P 89/53, P 76, R 20, T 98.7, O2 sat 94% on RA. Lung sounds clear to all lobes bilaterally. Resident denies pain when asked. He is resting in recliner at this time. Psychologist Military Personnel encouraged fluids and educated resident regarding the importance of this due to B/P trending low. Gripper socks worn bilaterally. Scabs to bilateral toes and skin tear to R elbow continue to heal with no s/s of infection observed upon inspection.
[2022-11-16 13:00] VITALS: BP 146/61; PULSE 71; RESP 20; TEMP 36.8; O2SAT 97
[2022-11-16 16:05] VITALS: BP 114/77; PULSE 65; RESP 16; TEMP 37.7; O2SAT 96
--- NOTE | 2022-11-16 16:06 | PC.NURSE ---
Fall Follow-Up: Vital signs obtain are within resident's normal ranges with the exception of his body temperature which is slightly elevated at 99.9 F. Resident is resting comfortably in his recliner at this time. Will continue to monitor.
[2022-11-16 20:56] VITALS: BP 104/72; PULSE 78; RESP 18; TEMP 37.3; O2SAT 96
--- NOTE | 2022-11-16 21:00 | PC.NURSE ---
Fall/followup: Resident is resting quietly in bed st this time
[2022-11-17] MEDS: LEVOTHYROXINE 25 MCG TABLET 137 MCG PO (07:20)
[2022-11-17] MEDS: SENNOSIDES 1 TAB TABLET 2 TAB PO ×2 (07:20→19:07)
--- NOTE | 2022-11-18 06:40 | PC.NURSE ---
Status: BENCH ASSEMBLER ELECTRICAL, Arturo here. Updated resident noted to have increased confusion and a low grade temp, and fall. Received Covid booster on 11/15. Orders: BMP, CBC, TSH on 11/21 to r/o cause.
[2022-11-18] MEDS: LEVOTHYROXINE 25 MCG TABLET 137 MCG PO (07:11)
[2022-11-18] MEDS: SENNOSIDES 1 TAB TABLET 2 TAB PO ×2 (07:11→19:07)
[2022-11-18] MEDS: ACETAMINOPHEN 325 MG TABLET 650 MG PO ×2 (11:13→17:35)
[2022-11-19] MEDS: LEVOTHYROXINE 25 MCG TABLET 137 MCG PO (07:03)
[2022-11-19] MEDS: SENNOSIDES 1 TAB TABLET 2 TAB PO ×2 (07:03→19:07)
[2022-11-19] MEDS: ACETAMINOPHEN 325 MG TABLET 650 MG PO (23:43)
[2022-11-20] MEDS: LEVOTHYROXINE 25 MCG TABLET 137 MCG PO (07:21)
[2022-11-20] MEDS: SENNOSIDES 1 TAB TABLET 2 TAB PO ×2 (07:21→20:30)
[2022-11-20 11:35] VITALS: TEMP 36.9
[2022-11-20] MEDS: ACETAMINOPHEN 325 MG TABLET 650 MG PO ×2 (11:35→20:16)
[2022-11-20 13:15] VITALS: TEMP 36.9
[2022-11-20 20:16] VITALS: TEMP 36.6
--- NOTE | 2022-11-20 20:53 | PC.NURSE ---
Pain: Resident C/O 5/10 pain to right side of rib. PRN Acetaminophen 650 mg given. Will continue to monitor.
[2022-11-20 21:56] VITALS: TEMP 36.6
[2022-11-21] MEDS: LEVOTHYROXINE 25 MCG TABLET 137 MCG PO (07:22)
[2022-11-21] MEDS: SENNOSIDES 1 TAB TABLET 2 TAB PO ×2 (07:23→20:14)
[2022-11-21 07:58] LABS: Basophils Absolute Auto 0.04 K/uL (0.00-0.30); Basophils Percent Auto 0.4 % (0.0-3.0); Eosinophils Absolute Auto 0.13 K/uL (0.00-0.50); Eosinophils Percent Auto 1.4 % (0.0-7.0); Hematocrit 44.4 % (37.0-53.0); Hemoglobin* 14.4 gm/dL (13.5-17.5); Immature Granulocytes Abs Auto 0.07 K/uL (0.00-0.30); Immature Granulocytes Pct Auto 0.7 %; Lymphocytes Absolute Auto 2.24 K/uL (0.90-2.90); Lymphocytes Percent Auto 23.9 % (20-44); Mean Corpuscular HGB Conc 32 gm/dL (32-36); Mean Corpuscular Hemoglobin 32 pg (26-34); Mean Corpuscular Volume 98 fL (80-100); Monocytes Percent Auto 7.2 % (0.0-11.0); Neutrophils Absolute Auto 6.22 K/uL (1.7-7.0); Neutrophils Percent Auto 66.4 % (42.0-72.0); Platelet Count* 385 K/uL (140-440); RDW Coefficient of Variation % 12.8 % (11.5-15.5); Red Blood Count 4.54 m/uL (4.30-5.90); White Blood Count* 9.38 K/uL (4.50-11.00)
[2022-11-21 08:04] LABS: Slide Review Reflex No
[2022-11-21 08:14] LABS: Chloride* 105 mmol/L (96-114); Potassium* 4.4 mmol/L (3.6-5.1); Sodium* 137 mmol/L (135-149)
[2022-11-21 08:17] LABS: Blood Urea Nitrogen* 18 mg/dL (7-30); Calcium* 9.3 mg/dL (8.4-10.6); Carbon Dioxide* 29 mmol/L (20-32); Est. Creatinine Clearance* 58.82; Estimated Glomerular Filt Rate 73 ml/min; Glucose* 94 mg/dL (60-115)
[2022-11-21] MEDS: ACETAMINOPHEN 325 MG TABLET 650 MG PO (09:08)
--- NOTE | 2022-11-21 09:19 | PC.NURSE ---
Resident continues to c/o R flank pain and states it is 8/10 this morning. PRN Tylenol has been given and warm towel provided. Resident describes pain as sharp in nature when asked and points to R side of abdomen/flank area when asked to locate pain. Resident last had BM yesterday per report. lcac radar operator/navigator updated. BRAND AMBASSADORS PROMOTIONAL SALES to assess with resident's labs completed today. Resident noted to be afebrile with temp of 97.8 and WBC is WNL. Nursing to continue to observe.
--- NOTE | 2022-11-22 00:21 | PC.NURSE ---
WEEKLY CHARTING - WEEK 2: Vital signs reviewed - BP values variable. Continue to monitor and update provider as needed. Temporary and comprehensive care plan reviewed - no change. Independent with transfers, ambulation, and bed mobility. Staff provide assistance PRN. Uses 4WW for ambulation. Bilateral 1/4 side rails up at all times as enabler for independent bed mobility. Last fall risk assessment indicates resident is at low risk for falls. Fall interventions include: call light in reach, gripper socks, remind resident to use call light when needed, 4WW within reach, bed brakes locked, staff to assist resident to the toilet at 0200. Had fall on 11/14 with minor injury - skin tear.
--- NOTE | 2022-11-22 05:32 | PC.NURSE ---
Behavior: Resident very restless this shift. Frequent call light use. Has moved back and forth between bed and recliner multiple times throughout the night. Denies pain when asked. Has asked multiple times for the date and year this shift. Will monitor.
[2022-11-22 06:50] VITALS: BMI 27.0
[2022-11-22] MEDS: LEVOTHYROXINE 25 MCG TABLET 137 MCG PO (07:06)
[2022-11-22] MEDS: SENNOSIDES 1 TAB TABLET 2 TAB PO ×2 (07:06→19:01)
[2022-11-22 07:10] VITALS: BP 118/71; PULSE 56; RESP 16; TEMP 36.2; O2SAT 94
--- NOTE | 2022-11-22 07:23 | PC.NURSE ---
Weekly Charting, Week 2 - Mobility: Comprehensive and temporary care plan reviewed. No changes made, nothing added to temporary care plan. Resident is independent with transfers and ambulation in room with 4ww. Needs SBA of one, 4ww with ambulation in valera. Independent with bed/chair mobility. No wheelchair use. No alarms. Bilateral 1/4 side rails up at all times to aid with bed positioning. Vital signs reviewed, BP' has some low values per his baseline.? Continue with weekly vital signs monitoring & refer to provider as needed. Fall: No fall the past month but had a fall on 11/14 with no injury, missed the chair. Remains a low fall risk according to assessment done on 09/08/22. Fall interventions: Call light within reach, bed in low position with brakes locked, gripper socks, walker at bedside, reminder to call for assist, staff to assist resident to toilet @ 0200.
[2022-11-22] MEDS: ACETAMINOPHEN 325 MG TABLET 650 MG PO ×2 (08:47→23:49)
--- NOTE | 2022-11-22 12:07 | PC.NURSE ---
Status/Order: Labs reviewed by Arturo ODELL. Updated of intermittent (R) flank pain for the past 3 days with some confusion. Order: Clean catch UA/UC.
[2022-11-22 18:29] LABS: Appearance Urine Clear (Clear); Bilirubin Urine Negative (Negative); Blood Urine Negative (Negative); Color Urine Yellow (Yellow); Glucose Urine Negative (Negative); Ketones Urine Trace (Negative); Leukocyte Esterase Urine Negative (Negative); Nitrite Urine Negative (Negative); Protein Urine Negative (Negative); Specific Gravity Urine 1.025 (1.000-1.030); Urobilinogen Urine 0.2 (0.2-1.0)
[2022-11-22 19:03] LABS: RBC Urine 0-2 (0-2); WBC Urine 0-2 (0-5)
--- NOTE | 2022-11-22 21:45 | PC.NURSE ---
UA/UC: Resident had UA/UC completed today. Results: Negative. Results faxed to [facility] attn: Marlen Morris.
[2022-11-23] MEDS: LEVOTHYROXINE 25 MCG TABLET 137 MCG PO (06:55)
[2022-11-23] MEDS: SENNOSIDES 1 TAB TABLET 2 TAB PO ×2 (07:09→19:28)
[2022-11-24] MEDS: LEVOTHYROXINE 25 MCG TABLET 137 MCG PO (07:57)
[2022-11-24] MEDS: SENNOSIDES 1 TAB TABLET 2 TAB PO ×2 (07:58→20:30)
[2022-11-24] MEDS: ACETAMINOPHEN 325 MG TABLET 650 MG PO (11:06)
[2022-11-25] MEDS: LEVOTHYROXINE 25 MCG TABLET 137 MCG PO (07:12)
[2022-11-25] MEDS: SENNOSIDES 1 TAB TABLET 2 TAB PO ×2 (07:12→19:27)
[2022-11-26] MEDS: LEVOTHYROXINE 25 MCG TABLET 137 MCG PO (07:20)
[2022-11-26] MEDS: SENNOSIDES 1 TAB TABLET 2 TAB PO ×2 (07:20→19:17)
[2022-11-27] MEDS: SENNOSIDES 1 TAB TABLET 2 TAB PO ×2 (07:25→19:30)
[2022-11-27] MEDS: LEVOTHYROXINE 25 MCG TABLET 137 MCG PO (07:25)
[2022-11-28] MEDS: LEVOTHYROXINE 25 MCG TABLET 137 MCG PO (07:12)
[2022-11-28] MEDS: SENNOSIDES 1 TAB TABLET 2 TAB PO ×2 (07:12→19:10)
--- NOTE | 2022-11-28 10:39 | PC.NURSE ---
Status: Okay to have raygoza is added to diet by Arturo ODELL.
--- NOTE | 2022-11-29 05:51 | PC.NURSE ---
WEEKLY CHARTING WEEK 3 TOILETING AND SKIN Vital signs reviewed?, are good except his blood pressure which is low these days. Nurse Practitioner is aware but no med has been prescribed. Comprehensive care plan reviewed, no changes made,nothing added to temporary care plan. Resident is continent of bowel and bladder and is independent with toileting. Independent wears large pull up ; tyshawn cares and clothing management by staff. Skin: two unknown fading bruises on top of right hand. Pitting +1 edema on both lower extremities.
[2022-11-29 07:00] VITALS: BP 82/48; PULSE 59; RESP 17; TEMP 36.4; O2SAT 97; BMI 26.9
[2022-11-29] MEDS: LEVOTHYROXINE 25 MCG TABLET 137 MCG PO (07:11)
[2022-11-29] MEDS: SENNOSIDES 1 TAB TABLET 2 TAB PO ×2 (07:11→19:42)
--- NOTE | 2022-11-29 13:18 | PC.NURSE ---
Weekly Charting, Week 3 - Toileting: Comprehensive and temporary care plan reviewed, no changes made. Nothing added to temporary care plan. Resident is continent of bowel and bladder. And is independent with toileting: pads, tyshawn cares and clothing management. Will call for assist as needed. Wears own undergarments. And on occasion a large pull up. Vital signs reviewed, BP's per his baseline. Continue weekly VS monitoring. Skin: Has small scabs on both feet. Skin is routinely checked on bath day & PRN.
[2022-11-30] MEDS: SENNOSIDES 1 TAB TABLET 2 TAB PO ×2 (08:03→19:15)
[2022-11-30] MEDS: LEVOTHYROXINE 25 MCG TABLET 137 MCG PO (08:03)
--- NOTE | 2022-11-30 16:10 | PC.SPIRITC ---
I provided visit for support and connection.
[2022-12-01] MEDS: SENNOSIDES 1 TAB TABLET 2 TAB PO ×2 (07:14→19:31)
[2022-12-01] MEDS: LEVOTHYROXINE 25 MCG TABLET 137 MCG PO (07:14)
[2022-12-02] MEDS: LEVOTHYROXINE 25 MCG TABLET 137 MCG PO (06:42)
[2022-12-02] MEDS: SENNOSIDES 1 TAB TABLET 2 TAB PO ×2 (06:59→19:09)
[2022-12-03] MEDS: SENNOSIDES 1 TAB TABLET 2 TAB PO ×2 (07:16→19:19)
[2022-12-03] MEDS: LEVOTHYROXINE 25 MCG TABLET 137 MCG PO (07:16)
[2022-12-04] MEDS: LEVOTHYROXINE 25 MCG TABLET 137 MCG PO (06:50)
[2022-12-04] MEDS: SENNOSIDES 1 TAB TABLET 2 TAB PO ×2 (07:10→19:05)
[2022-12-05] MEDS: SENNOSIDES 1 TAB TABLET 2 TAB PO ×2 (07:31→19:09)
[2022-12-05] MEDS: LEVOTHYROXINE 25 MCG TABLET 137 MCG PO (07:31)
[2022-12-05 13:52] VITALS: BMI 26.9
--- NOTE | 2022-12-06 02:53 | PC.NURSE ---
WEEKLY CHARTING WEEK4. Vital signs reviewed, continue to have low blood pressure, CRUCIBLE PACKER aware continue to check weekly vitals. Not on ptychotropic medication. Some night was experiencing restless unable to stayed asleep, self transfer from/to bed to recliner. No changes of communication, hearing vision and orientation noted. Has moderate heating impairment with no hearing device. Speak with decent volume of as needed. Vision impairment with corrected lens use. Able to communicate needs. All medication administered by license nurse. health condition is stable.
[2022-12-06 07:00] VITALS: BMI 27.0
[2022-12-06] MEDS: LEVOTHYROXINE 25 MCG TABLET 137 MCG PO (07:05)
[2022-12-06] MEDS: SENNOSIDES 1 TAB TABLET 2 TAB PO ×2 (07:05→20:00)
[2022-12-06 07:09] VITALS: BP 104/62; PULSE 64; RESP 18; TEMP 36.1; O2SAT 95
--- NOTE | 2022-12-06 07:52 | PC.NURSE ---
Weekly Charting - Week4: Comprehensive and temporary care plan reviewed. No changes made and nothing added to temporary care plan. No changes noted in communication, hearing vision or orientation.Resident does communicate needs and use the call light. Needs also anticipated by staff. Vision corrected by glasses. Has moderate hearing impairment. No device used. Speak distinctly and adjust tone of voice. Has moderate cognitive deficit r/t progressing dementia. Nurse administer all medications. Vital signs reviewed, BP's some lows per his baseline. Provider aware. Is on no BP medications. Continue weekly monitoring, refer to provider as needed. Mood/Behavior: No issues the past month. Is on no psychotropic medications.
--- NOTE | 2022-12-06 09:11 | PC.PHA1 ---
MARKER HAND PHARMACIST'S MEDICATION REVIEW: MEDICATION MONITORING:No psychotropic medications to monitor. Levothyroxing 137 mcg continues, and labs recently done 11/21/22 within normal limits. IRREGULARITY OR COMMENTS: No changes to patient's medication regimen since last review. SUGGESTED COURSE OF ACTION TAKEN:No reccomendations at this time.
[2022-12-07] MEDS: SENNOSIDES 1 TAB TABLET 2 TAB PO ×2 (07:23→19:16)
[2022-12-07] MEDS: LEVOTHYROXINE 25 MCG TABLET 137 MCG PO (07:23)
--- NOTE | 2022-12-07 13:07 | PC.NURSE ---
COVID TESTING for exposure. Resident and residents give verbal consent. Resident is currently asymptomatic.? Resident/family will be notified only if resident is positive.
[2022-12-07 13:57] LABS: SARS PCR* Negative SARS-CoV-2 (Negative)
[2022-12-08] MEDS: SENNOSIDES 1 TAB TABLET 2 TAB PO ×2 (07:08→20:59)
[2022-12-08] MEDS: LEVOTHYROXINE 25 MCG TABLET 137 MCG PO (07:08)
[2022-12-09] MEDS: LEVOTHYROXINE 25 MCG TABLET 137 MCG PO (06:32)
[2022-12-09] MEDS: SENNOSIDES 1 TAB TABLET 2 TAB PO ×2 (07:42→19:28)
--- NOTE | 2022-12-09 11:37 | PC.NURSE ---
Podiatry: Resident seen by loading machine operator helper in house service.
[2022-12-10] MEDS: SENNOSIDES 1 TAB TABLET 2 TAB PO ×2 (07:14→19:05)
[2022-12-10] MEDS: LEVOTHYROXINE 25 MCG TABLET 137 MCG PO (07:14)
[2022-12-11] MEDS: SENNOSIDES 1 TAB TABLET 2 TAB PO ×2 (07:13→19:10)
[2022-12-11] MEDS: LEVOTHYROXINE 25 MCG TABLET 137 MCG PO (07:13)
[2022-12-12] MEDS: LEVOTHYROXINE 25 MCG TABLET 137 MCG PO (07:06)
[2022-12-12] MEDS: SENNOSIDES 1 TAB TABLET 2 TAB PO ×2 (07:06→20:44)
--- NOTE | 2022-12-12 07:09 | PC.NURSE ---
Bowel note: Resident reports he had a moderate formed BM yesterday when asked by this selling underwriter. He is therefore not on bowel protocol today.
[2022-12-13 06:31] VITALS: BMI 27.0
[2022-12-13] MEDS: LEVOTHYROXINE 25 MCG TABLET 137 MCG PO (06:57)
[2022-12-13] MEDS: SENNOSIDES 1 TAB TABLET 2 TAB PO ×2 (07:01→19:36)
[2022-12-13 07:05] VITALS: BP 97/61; PULSE 72; RESP 20; TEMP 36.5; O2SAT 94
--- NOTE | 2022-12-13 13:00 | PC.NURSE ---
CARE CONFERENCE: All members of the IDT were present. Resident was not present due to significant cognitive impairment. was not present but was updated via phone call after conference. Resident has had an increase in confusion and unsteady gate. Recently had a fall without injury. Plan is to have PT assess tranfers and ambulation and advise nursing staff on their recommendation. Nursing staff to provide more assistance and check on him more frequently. Resident had a COVID vaccine booster on 11/15 and experience fevers/illness thereafter which was likely due to the vaccine. Resident has made a full recovery. Activities reports that resident is anxious and upset about having the recycling bin within his view from his window. Activities did move this so that it is not directly next to his window though resident is still not happy with this. Will continue to monitor and contact maintenance if this is a continued issue that needs addressing for resident wellbeing. PRN Zofran was recently discontinued due to non-use. No other medication changes at this time. Resident is generally independent though staff anticipate his needs and he does require queuing for hygiene and ADLs throughout the day. Staff deny any issues with refusal of care or non-compliance this quarter. Resident has very poor dentition, but residents refuses services at this time due to distress it may cause resident. He denies pain/difficulty chewing/swallowing. SW reports that residents mood is stable, depression is evident though resident/residents deny the need for him to see a counselor when offered. Weight is stable, slow decline in weight, no further concerns from set up / operator. Activities notes good participation in, in and out of room activities. Nursing manages all medications. Uses no restraints. Is considered a VA due to cognitive impairment and need for assistance with ADLs. No changes to POLST and is DNR/DNI.
--- NOTE | 2022-12-13 14:23 | PC.SOCIAL ---
Resident's care conference was held today and his care plan reviewed. No changes and resident remains stable. All members of the team were present for care conference, family was not present.
--- NOTE | 2022-12-13 22:48 | PC.NURSE ---
MDS CLARIFICATION: staff were interviewed due to suspected inaccurate charting. Eating?resident required set up assist only during the lookback period for all activities. Coded as such. Eating?resident did not require any assistance except set up. Coded independent with set up assist.
[2022-12-14] MEDS: LEVOTHYROXINE 25 MCG TABLET 137 MCG PO (07:18)
[2022-12-14] MEDS: SENNOSIDES 1 TAB TABLET 2 TAB PO ×2 (07:18→20:06)
[2022-12-15] MEDS: LEVOTHYROXINE 25 MCG TABLET 137 MCG PO (07:13)
[2022-12-15] MEDS: SENNOSIDES 1 TAB TABLET 2 TAB PO ×2 (07:13→19:14)
--- NOTE | 2022-12-15 15:51 | REH.PT ---
Orders received for PT Eval and treat to assess pts need for increased assist with mobility. Pt was assessed on 11/15/22 and today remains at his baseline with regards to gait, transfers and balance. If nursing staff would like to provide pt with more supervision when he is self ambulating a silent bed and chair alarm would be recommended. Skilled PT not warranted at this time.
[2022-12-15] MEDS: MAGNESIUM HYDROXIDE 30 ML ORAL.SUSP PO (16:00)
[2022-12-16] MEDS: LEVOTHYROXINE 25 MCG TABLET 137 MCG PO (07:08)
[2022-12-16] MEDS: SENNOSIDES 1 TAB TABLET 2 TAB PO ×2 (07:08→20:42)
[2022-12-17] MEDS: SENNOSIDES 1 TAB TABLET 2 TAB PO ×2 (07:18→20:13)
[2022-12-17] MEDS: LEVOTHYROXINE 25 MCG TABLET 137 MCG PO (07:18)
[2022-12-18] MEDS: SENNOSIDES 1 TAB TABLET 2 TAB PO ×2 (07:02→19:51)
[2022-12-18] MEDS: LEVOTHYROXINE 25 MCG TABLET 137 MCG PO (07:02)
[2022-12-19] MEDS: LEVOTHYROXINE 25 MCG TABLET 137 MCG PO (06:53)
[2022-12-19] MEDS: SENNOSIDES 1 TAB TABLET 2 TAB PO ×2 (06:54→20:28)
--- NOTE | 2022-12-20 01:32 | PC.NURSE ---
Weekly charting Week 1 : Vital signs reviewed. Noted hypotension, ICE CREAM MAKER aware. continue weekly check during bath days. Comprehensive and Temporary care plan reviewed with no changes made. Pain: resident is not on pain medication. no complain of pain. ADLS.? Res is mostly independent most of the time, sometimes needs1 staff? limited assist with bathing and dressing. No changes of appetite, On regular diet with thin liquids. No swallowing issue noted.
[2022-12-20] MEDS: SENNOSIDES 1 TAB TABLET 2 TAB PO ×2 (07:18→19:42)
[2022-12-20] MEDS: LEVOTHYROXINE 25 MCG TABLET 137 MCG PO (07:18)
--- NOTE | 2022-12-20 07:28 | PC.NURSE ---
Weekly Charting, Week 1 - ADL's: Comprehensive & temporary care plan reviewed, no changes made. Nothing added to temporary care plan. Resident needs one assist with dressing, grooming and bathing. Encourage to participate as much as able. Is able to do oral cares after set up. Independent with feeding. Is on regular, soft and bite sized texture thin liquids d/t coughing at meals. Diet well tolerated.? Vital signs reviewed. BP's low per his baseline, noted by provider. No complain of hypotensive symptoms. Is on no BP medications.? Recommends push fluids. Continue with weekly VS monitoring. Pain: Had a complain of (R) side flank pain last month for 3 days which was relieved with Tylenol PRN along with warm compress. Has an order for Tylenol 650mg Q6h PRN. Labs drawn to r/o infection, no acute findings. Is able to tell when in pain & staff also anticipates.
[2022-12-20 11:00] VITALS: BP 89/55; PULSE 68; RESP 18; TEMP 36.3; O2SAT 95; BMI 27.1
[2022-12-21] MEDS: LEVOTHYROXINE 25 MCG TABLET 137 MCG PO (06:49)
[2022-12-21] MEDS: SENNOSIDES 1 TAB TABLET 2 TAB PO ×2 (07:19→20:03)
[2022-12-22] MEDS: LEVOTHYROXINE 25 MCG TABLET 137 MCG PO (07:11)
[2022-12-22] MEDS: SENNOSIDES 1 TAB TABLET 2 TAB PO ×2 (07:11→20:58)
--- NOTE | 2022-12-22 07:59 | PC.SPIRITC ---
Late entry from December 21, 2022. I provided visit for connection, support, and help Carlos get out a puzzle.
[2022-12-23] MEDS: SENNOSIDES 1 TAB TABLET 2 TAB PO ×2 (07:14→19:12)
[2022-12-23] MEDS: LEVOTHYROXINE 25 MCG TABLET 137 MCG PO (07:14)
[2022-12-24] MEDS: LEVOTHYROXINE 25 MCG TABLET 137 MCG PO (06:42)
[2022-12-24] MEDS: SENNOSIDES 1 TAB TABLET 2 TAB PO ×2 (07:14→19:32)
[2022-12-25] MEDS: SENNOSIDES 1 TAB TABLET 2 TAB PO ×2 (07:16→19:03)
[2022-12-25] MEDS: LEVOTHYROXINE 25 MCG TABLET 137 MCG PO (07:16)
[2022-12-25] MEDS: MAGNESIUM HYDROXIDE 30 ML ORAL.SUSP PO (15:44)
--- NOTE | 2022-12-26 00:55 | PC.NURSE ---
Weekly Charting Week 2 MOBILITY: Vital signs reviewed, BP is low as per Resident baseline. Encourage fluid intake and Continue to monitor, refer to provided as needed. Independent with transfers, ambulation, and bed mobility. Staff provide assistance as needed.? Uses 4WW for ambulation in room and meal. Bilateral 1/4 side rails up at all times as enabler for independent bed mobility. Fall risk assessment indicates resident is at low risk for falls. Fall interventions include: call light in reach, gripper socks, remind resident? to use call light when needed, 4WW within reach, bed brakes locked, staff to assist resident to the toilet at 0200.
[2022-12-26] MEDS: LEVOTHYROXINE 25 MCG TABLET 137 MCG PO (06:36)
[2022-12-26] MEDS: SENNOSIDES 1 TAB TABLET 2 TAB PO ×2 (07:04→21:09)
--- NOTE | 2022-12-27 03:24 | PC.NURSE ---
WEEKLY CHARTING - WEEK 2: Mobility Vital signs reviewed - BP values variable. Continue to monitor and update provider as needed. Temporary and comprehensive care plan reviewed - no change. Resident is independent with mobility with transfers, ambulation with 4WW in room and hallways, and bed mobility. Staff provide assistance as needed it . He has bilateral 1/4 side rails up at all times for bed mobility. Last fall risk assessment indicates resident is at low risk for falls but has potential for injury related to cognitive deficits. Fall interventions include: call light in reach, gripper socks, remind resident? to use call light when needed, 4WW within reach, bed brakes locked, staff to assist resident to the toilet at 0200.
[2022-12-27 07:00] VITALS: BMI 27.4
[2022-12-27] MEDS: LEVOTHYROXINE 25 MCG TABLET 137 MCG PO (07:23)
[2022-12-27] MEDS: SENNOSIDES 1 TAB TABLET 2 TAB PO ×2 (07:23→20:52)
[2022-12-27 07:27] VITALS: BP 103/63; PULSE 77; RESP 18; TEMP 36.8; O2SAT 97
--- NOTE | 2022-12-27 08:12 | PC.NURSE ---
Weekly Charting, Week 2 - Mobility: Comprehensive and temporary care plan reviewed. No changes made, nothing added to temporary care plan. Resident is independent with transfers and ambulation in room with 4ww. Needs SBA of one, 4ww with ambulation in valera. Independent with bed/chair mobility. No wheelchair use. No alarms. Bilateral 1/4 side rails up at all times to aid with bed positioning. Vital signs reviewed, has chronic low BP's noted by provider. resident no complain of hypotensive symptoms.? Continue with weekly vital signs monitoring & refer to provider as needed. Fall: Had a fall on 11/14 with no injury,? missed the chair. Remains a low fall risk according to assessment done on 12/10/22. Fall interventions: Call light within reach, bed in low position with brakes locked,? gripper socks, walker at bedside, reminder to call for assist, staff to assist resident to toilet @ 0200.
[2022-12-28] MEDS: LEVOTHYROXINE 25 MCG TABLET 137 MCG PO (06:55)
[2022-12-28] MEDS: SENNOSIDES 1 TAB TABLET 2 TAB PO ×2 (07:02→19:44)
[2022-12-29] MEDS: LEVOTHYROXINE 25 MCG TABLET 137 MCG PO (07:08)
[2022-12-29] MEDS: SENNOSIDES 1 TAB TABLET 2 TAB PO ×2 (07:08→19:54)
[2022-12-30] MEDS: LEVOTHYROXINE 25 MCG TABLET 137 MCG PO (06:57)
[2022-12-30] MEDS: SENNOSIDES 1 TAB TABLET 2 TAB PO ×2 (07:06→19:12)
[2022-12-31] MEDS: LEVOTHYROXINE 25 MCG TABLET 137 MCG PO (06:38)
[2022-12-31] MEDS: SENNOSIDES 1 TAB TABLET 2 TAB PO ×2 (07:05→19:44)
[2023-01-01] MEDS: LEVOTHYROXINE 25 MCG TABLET 137 MCG PO (07:18)
[2023-01-01] MEDS: SENNOSIDES 1 TAB TABLET 2 TAB PO ×2 (07:18→20:48)
--- NOTE | 2023-01-01 10:55 | PC.NURSE ---
Bowel note: Resident reports having a moderate formed BM on 12/31/22. He is therefore not on bowel protocol today.
[2023-01-02] MEDS: SENNOSIDES 1 TAB TABLET 2 TAB PO ×2 (07:01→20:02)
[2023-01-02] MEDS: LEVOTHYROXINE 25 MCG TABLET 137 MCG PO (07:01)
--- NOTE | 2023-01-02 23:49 | LTC.FALL ---
[facility] Fall Note: o Fall Date: 01/02/23 o Fall Time: 2129 o What happened? Rolled out of w/c to the floor. o Who found the resident and who responded? Assigned DORENE was present at the time of incident. Floor nurse responded o What was the resident doing? Unknown. o How the resident was found (knees, left side, arm under them), any hazards (cords, objects, nonskid slippers) brakes on? Proper equipment? Found lying on his right lateral side. o Did you assess for head trauma, spinal injuries, skeletal injuries, neurological changes and status, and head and neck pain? What did you find? No injuries at this time. Witnessed DORENE confirms that resident did not hit his head. Cognition is unchanged from baseline. o Did you assess ROM in shoulders, elbows, hips, knees, any other affected areas, unless there is suspected spinal injury. Unable to perform ROM effectively, as expected, due to disease, but able to joint areas as tolerated. o Did you Assess for pain or discomfort? Yes. Resident denies pain, and no non-verbal signs often indicating pain symptoms noted at this time. o What are the injuries and how are they being treated? N/A o How was the resident transferred from the floor? 3 assist with Steffany lift. o Did you call the MD or put a note in the BULK DELIVERY DRIVER book? Yes o Enter vital signs. BP- 106/68, Temp- 99, Pul- 79, O2- 99%, Resp- 20, Pain- 0 o Did you notify family? Yes o What was the root cause of the fall? Why did it happen? Unattended for few seconds. o Create an IMMEDIATE INTERVENTION to ensure that this won't immediately happen again. (Put in temporary care plan too) o Complete Safety report and huddle (now one form) o If resident is seen in ED or fractured something, note that you started a [facility] Report process. Instructions are at the East nurse's desk in a red binder labeled [facility] report.
--- NOTE | 2023-01-03 01:32 | PC.NURSE ---
Weekly Charting Week 3: Toileting and Skin: Nieves signs reviewed. BP low reading, TWIST PACKER is aware, continue to monitor weekly Update provider as needed. Resident is continent of bowel and bladder. Res is independent with toileting: pads, tyshawn cares and clothing management. Will call for assist as needed. Wears own undergarments. Use occasional Pull ups as needed. Offer to use Toilet at 02:00 however keep refusing at that time. SKIN: Has scab on left great toe, Has intermittent edema to BLE. Encourage to elevated BLE. Skin check is done on bath days and during cares.
[2023-01-03] MEDS: LEVOTHYROXINE 25 MCG TABLET 137 MCG PO (06:52)
[2023-01-03 07:00] VITALS: BP 90/59; PULSE 60; RESP 18; TEMP 36.6; O2SAT 93; BMI 27.4
[2023-01-03] MEDS: SENNOSIDES 1 TAB TABLET 2 TAB PO ×2 (07:20→19:13)
--- NOTE | 2023-01-03 07:56 | PC.NURSE ---
Weekly Charting, Week 3 - Toileting: Comprehensive and temporary care plan reviewed, no changes made. Nothing added to temporary care plan. Resident is continent of bowel and bladder. And is independent with toileting: pads, tyshawn cares and clothing management. Will call for assist as needed. Wears own undergarments. And on occasion a large pull up. Vital signs reviewed, BP's per his baseline, has chronic low BP's noted by providers.? Continue weekly VS monitoring and refer as needed. Skin: Has small scabs on top of both feet toes, open to air. Has intermittent LE's edema, encourage elevation. Skin is routinely checked on bath day & PRN.
[2023-01-04] MEDS: LEVOTHYROXINE 25 MCG TABLET 137 MCG PO (06:51)
[2023-01-04] MEDS: SENNOSIDES 1 TAB TABLET 2 TAB PO ×2 (07:05→21:25)
[2023-01-05] MEDS: LEVOTHYROXINE 25 MCG TABLET 137 MCG PO (07:18)
[2023-01-05] MEDS: SENNOSIDES 1 TAB TABLET 2 TAB PO ×2 (07:18→20:41)
[2023-01-06] MEDS: SENNOSIDES 1 TAB TABLET 2 TAB PO ×2 (07:30→19:35)
[2023-01-06] MEDS: LEVOTHYROXINE 25 MCG TABLET 137 MCG PO (07:30)
[2023-01-07] MEDS: SENNOSIDES 1 TAB TABLET 2 TAB PO ×2 (07:17→20:30)
[2023-01-07] MEDS: LEVOTHYROXINE 25 MCG TABLET 137 MCG PO (07:17)
[2023-01-08] MEDS: SENNOSIDES 1 TAB TABLET 2 TAB PO ×2 (07:19→19:24)
[2023-01-08] MEDS: LEVOTHYROXINE 25 MCG TABLET 137 MCG PO (07:19)
[2023-01-08] MEDS: MAGNESIUM HYDROXIDE 30 ML ORAL.SUSP PO (15:16)
[2023-01-09] MEDS: LEVOTHYROXINE 25 MCG TABLET 137 MCG PO (06:57)
[2023-01-09] MEDS: SENNOSIDES 1 TAB TABLET 2 TAB PO ×2 (08:09→19:21)
[2023-01-10] MEDS: LEVOTHYROXINE 25 MCG TABLET 137 MCG PO (06:37)
--- NOTE | 2023-01-10 07:09 | PC.NURSE ---
WEEKLY CHARTING - WEEK 4: COMMUNICATION, HEARING/VISION,COGNITION, BEHAVIORS Vital signs reviewed, resident got some low BP values, will continue to monitor and update provider as needed. Temporary and comprehensive care plan reviewed - no change. No behaviors documented in the last 30 days, not currently on any psychotropic medications. Resident is able to communicate needs effectively. Staff anticipate needs as well. Hearing is moderately impaired. Staff adjust voice as needed. Visual deficit is corrected with glasses. Moderate cognitive impairment related dementia. All medications administered by licensed nurse. Health condition currently stable.
[2023-01-10] MEDS: SENNOSIDES 1 TAB TABLET 2 TAB PO ×2 (07:14→20:36)
--- NOTE | 2023-01-10 08:21 | PC.NURSE ---
Weekly Charting - Week4: Comprehensive and temporary care plan reviewed. No changes made and nothing added to temporary care plan. No changes noted in communication, hearing vision or orientation.Resident does communicate needs and use the call light. Needs also anticipated by staff. Vision corrected by glasses. Has moderate hearing impairment. No device used. Speak distinctly and adjust tone of voice. Has moderate cognitive deficit r/t progressing dementia. Nurse administer all medications. Vital signs reviewed, has chronic low BP's. Has no complain of hypotensive symptoms. Providers aware. Is on no BP medications. Continue weekly monitoring, refer to provider as needed. Mood/Behavior: Has 2 episodes of confusion for the past month. Is on no psychotropic medications. Monitor changes PRN & refer to provider as needed.
[2023-01-10 09:24] VITALS: BMI 27.8
[2023-01-10 10:54] VITALS: BP 102/60; PULSE 68; RESP 18; TEMP 36.2; O2SAT 99
[2023-01-11] MEDS: LEVOTHYROXINE 25 MCG TABLET 137 MCG PO (07:07)
[2023-01-11] MEDS: SENNOSIDES 1 TAB TABLET 2 TAB PO ×2 (07:07→20:27)
--- NOTE | 2023-01-11 13:12 | PC.PHA1 ---
MILK VENDOR PHARMACIST'S MEDICATION REVIEW: MEDICATION MONITORING:No psychotropic medications to monitor. IRREGULARITY OR COMMENTS:Patient still only taking two scheduled medications on daily basis, levothyroxine and senna. Doing well but care givers noting more cognitive changes of forgetfulness. SUGGESTED COURSE OF ACTION TAKEN:No medication recommendations this review.
[2023-01-12] MEDS: LEVOTHYROXINE 25 MCG TABLET 137 MCG PO (07:22)
[2023-01-12] MEDS: SENNOSIDES 1 TAB TABLET 2 TAB PO ×2 (07:22→19:27)
[2023-01-13] MEDS: SENNOSIDES 1 TAB TABLET 2 TAB PO ×2 (07:15→19:31)
[2023-01-13] MEDS: LEVOTHYROXINE 25 MCG TABLET 137 MCG PO (07:15)
[2023-01-14] MEDS: LEVOTHYROXINE 25 MCG TABLET 137 MCG PO (06:51)
[2023-01-14] MEDS: SENNOSIDES 1 TAB TABLET 2 TAB PO ×2 (07:05→19:48)
[2023-01-15] MEDS: SENNOSIDES 1 TAB TABLET 2 TAB PO ×2 (07:32→19:50)
[2023-01-15] MEDS: LEVOTHYROXINE 25 MCG TABLET 137 MCG PO (07:32)
[2023-01-16] MEDS: LEVOTHYROXINE 25 MCG TABLET 137 MCG PO (07:09)
[2023-01-16] MEDS: SENNOSIDES 1 TAB TABLET 2 TAB PO ×2 (07:10→19:06)
--- NOTE | 2023-01-16 11:44 | PC.NURSE ---
Weekly Charting, Week 1 - ADL's: Comprehensive & temporary care plan reviewed, no changes made. Nothing added to temporary care plan. Resident needs one assist with dressing, grooming and bathing. Encourage to participate as much as able. Is able to do oral cares after set up. Independent with feeding. Is on regular, soft and bite sized texture thin liquids. No chewing/swallowing problems noted o? Vital signs reviewed. BP's low per his baseline, noted by provider. No complain of hypotensive symptoms. Is on no BP medications.? Recommends push fluids. Continue with weekly VS monitoring. Pain: No complain of pain the past month. Has an order for Tylenol 650mg Q6h PRN and has used sparingly. Is able to tell when in pain & staff also anticipates.
--- NOTE | 2023-01-17 06:27 | PC.NURSE ---
WEEKLY CHARTING WEEK 1 : PAIN AND ADL`S Vital signs reviewed, Blood pressure low per resident baseline, noted by provider. No complain of hypotensive symptoms. Resident is not on blood pressure medications ; It is recommended to push fluids. Continue with weekly VS monitoring. Comprehensive and temporary care plan reviewed, no changes made. Resident needs one assist with dressing, grooming and bathing. Encourage to participate as much as able. He can do oral care after set up. He is on regular diet, soft and bite sized texture , thin liquids, eats independently . No chewing or swallowing problems noted.? Pain: No complain of pain the past month. Resident can voice pain, has an order for Tylenol 650mg Q6h PRN and has used it sparingly.
[2023-01-17] MEDS: LEVOTHYROXINE 25 MCG TABLET 137 MCG PO (06:33)
[2023-01-17 07:00] VITALS: BP 94/57; PULSE 68; RESP 18; TEMP 36.3; O2SAT 96; BMI 27.7
[2023-01-17] MEDS: SENNOSIDES 1 TAB TABLET 2 TAB PO ×2 (07:09→19:27)
[2023-01-18] MEDS: LEVOTHYROXINE 25 MCG TABLET 137 MCG PO (06:53)
[2023-01-18] MEDS: SENNOSIDES 1 TAB TABLET 2 TAB PO ×2 (07:16→19:35)
[2023-01-19] MEDS: LEVOTHYROXINE 25 MCG TABLET 137 MCG PO (06:25)
[2023-01-19] MEDS: SENNOSIDES 1 TAB TABLET 2 TAB PO ×2 (07:36→19:21)
[2023-01-20] MEDS: LEVOTHYROXINE 25 MCG TABLET 137 MCG PO (06:36)
[2023-01-20] MEDS: SENNOSIDES 1 TAB TABLET 2 TAB PO ×2 (07:40→19:32)
[2023-01-21] MEDS: LEVOTHYROXINE 25 MCG TABLET 137 MCG PO (07:23)
[2023-01-21] MEDS: SENNOSIDES 1 TAB TABLET 2 TAB PO ×2 (07:23→20:36)
[2023-01-21 10:29] VITALS: BMI 27.7
[2023-01-22] MEDS: SENNOSIDES 1 TAB TABLET 2 TAB PO ×2 (07:22→19:46)
[2023-01-22] MEDS: LEVOTHYROXINE 25 MCG TABLET 137 MCG PO (07:22)
[2023-01-23] MEDS: SENNOSIDES 1 TAB TABLET 2 TAB PO ×2 (07:51→20:24)
[2023-01-23] MEDS: LEVOTHYROXINE 25 MCG TABLET 137 MCG PO (07:51)
--- NOTE | 2023-01-23 12:39 | PC.NURSE ---
Orders note: New order from JOSE R Morris to place Tubigrips to patient's bilateral lower extremities (knee high). If patient tolerates, update PCP to order SHANKAR stockings. Supply of Tubigrips has been provided.
--- NOTE | 2023-01-24 03:55 | PC.NURSE ---
WEEKLY CHARTING - WEEK 2: Mobility Vital signs reviewed - BP values variable. Continue to monitor and update provider as needed. Temporary and comprehensive care plan reviewed - no change. Resident is independent with mobility with transfers, ambulation with 4WW in room and SBA in hallways, and bed mobility. Staff provide assistance as needed it . He has bilateral 1/4 side rails up at all times for bed mobility,positioning. Last fall risk assessment indicates resident is at low risk for falls but has potential for injury related to cognitive deficits. Fall interventions include: call light in reach, gripper socks, remind resident? to use call light when needed, 4WW within reach, bed brakes locked, staff to assist resident to the toilet at 0200.
[2023-01-24] MEDS: LEVOTHYROXINE 25 MCG TABLET 137 MCG PO (06:35)
[2023-01-24 07:00] VITALS: BP 99/30; BMI 27.7
[2023-01-24] MEDS: SENNOSIDES 1 TAB TABLET 2 TAB PO ×2 (07:40→19:35)
[2023-01-24 08:00] VITALS: BP 99/30; PULSE 69; RESP 18; TEMP 36.4; O2SAT 97
--- NOTE | 2023-01-24 08:39 | PC.NURSE ---
WEEKLY CHARTING -WEEK 2 - MOBILITY: Reviewed vital signs and no changes made at this time. Comprehensive and temporary care plan reviewed. No changes made, nothing added to temporary care plan. Resident is independent with transfers and ambulation using a 4w walker. Independent with bed/chair mobility. No wheelchair use. No alarms. Bilateral 1/4 side rails up at all times to aid with bed positioning. Vital signs reviewed, no concerns at this time. Fall: Resident had his last fall on the 11/14/2022. Remains a low fall risk according to assessment done on 09/08/22. Fall interventions: Call light within reach, bed in low position locked, gripper socks, walker at bedside, reminder to call for assist, staff to assist resident to toilet as needed. Resident is able to use the call light for his needs.
--- NOTE | 2023-01-24 11:09 | PC.SPIRITC ---
I provided visit for connection and support.
[2023-01-25] MEDS: LEVOTHYROXINE 25 MCG TABLET 137 MCG PO (06:27)
[2023-01-25] MEDS: SENNOSIDES 1 TAB TABLET 2 TAB PO ×2 (07:58→19:49)
[2023-01-26] MEDS: LEVOTHYROXINE 25 MCG TABLET 137 MCG PO (06:43)
[2023-01-26] MEDS: SENNOSIDES 1 TAB TABLET 2 TAB PO ×2 (08:04→21:05)
[2023-01-27] MEDS: SENNOSIDES 1 TAB TABLET 2 TAB PO ×2 (07:17→19:27)
[2023-01-27] MEDS: LEVOTHYROXINE 25 MCG TABLET 137 MCG PO (07:17)
[2023-01-28] MEDS: LEVOTHYROXINE 25 MCG TABLET 137 MCG PO (07:39)
[2023-01-28] MEDS: SENNOSIDES 1 TAB TABLET 2 TAB PO ×2 (07:39→20:47)
[2023-01-29] MEDS: SENNOSIDES 1 TAB TABLET 2 TAB PO ×2 (07:41→20:13)
[2023-01-29] MEDS: LEVOTHYROXINE 25 MCG TABLET 137 MCG PO (07:41)
[2023-01-30] MEDS: SENNOSIDES 1 TAB TABLET 2 TAB PO ×2 (07:24→20:52)
[2023-01-30] MEDS: LEVOTHYROXINE 25 MCG TABLET 137 MCG PO (07:24)
--- NOTE | 2023-01-30 14:47 | PC.SPIRITC ---
Visit provided for support and comfort.
--- NOTE | 2023-01-30 23:56 | PC.NURSE ---
Weekly Charting week 3: Toileting and Skin; Vital signs reviewed, BP trending low which Resident normal reading. EQUALIZING SAW OPERATOR aware, continue to monitor, update Provider as needed. Resident is continent of bowel and bladder. Res is independent with toileting: pads, tyshawn cares and clothing management. Will call for assist as needed. Wears own undergarments. Offer to use Toilet at 02:00 however keep refusing at that time. SKIN: Continue to have scab on left great toe, 2nd, 3rd toe, Right 3rd and 4th toe. Has intermittent edema to BLE. Wears Teds on AM off Bedtime. Encourage to elevated BLE. Skin check is done on bath days and during cares.
[2023-01-31 07:00] VITALS: BP 87/56; PULSE 74; RESP 18; TEMP 36.4; O2SAT 97; BMI 27.7
--- NOTE | 2023-01-31 07:03 | PC.NURSE ---
WEEKLY CHARTING -WEEK3 -TOILETING & SKIN : Vital signs reviewed and has a low B/P which is normal for him,THERMOSTAT REPAIRER aware and requires no medication currently. Comprehensive care plan reviewed, no changes made. Nothing added to temporary care plan. Resident is continent of bowel and bladder and is independent with toileting: pads, tyshawn cares and clothing management. He only call for assist for get drinks and as needed. Wears own undergarments. And on occasion a large pull up. Skin: Resident's skin tear and bruise has totally healed.Noted edema both feet has increase. ordered by Marlen Morris to apply Tubigrip to bilateral lower extremities ( knee high).Resident is reluctant to wear TEDS.
[2023-01-31] MEDS: LEVOTHYROXINE 25 MCG TABLET 137 MCG PO (08:16)
[2023-01-31] MEDS: SENNOSIDES 1 TAB TABLET 2 TAB PO ×2 (08:16→19:08)
[2023-02-01] MEDS: SENNOSIDES 1 TAB TABLET 2 TAB PO ×2 (06:41→19:12)
[2023-02-01] MEDS: LEVOTHYROXINE 25 MCG TABLET 137 MCG PO (06:41)
--- NOTE | 2023-02-01 13:18 | PC.NURSE ---
Met with patient at bedside to administer morning meds. Resident noted to have blood on floor below his feet. It appears patient has scab on left great toe that broke open. Cleaned toe with soap and water and applied bacitracin ointment and band-aid. Patient denies pain. Patient cannot recall bumping or hitting toe on anything. Intervention added for daily dressing change and monitoring.
[2023-02-02] MEDS: LEVOTHYROXINE 25 MCG TABLET 137 MCG PO (06:34)
[2023-02-02] MEDS: SENNOSIDES 1 TAB TABLET 2 TAB PO ×2 (07:30→19:50)
[2023-02-03] MEDS: LEVOTHYROXINE 25 MCG TABLET 137 MCG PO (06:33)
[2023-02-03] MEDS: SENNOSIDES 1 TAB TABLET 2 TAB PO ×2 (08:26→19:04)
[2023-02-04] MEDS: LEVOTHYROXINE 25 MCG TABLET 137 MCG PO (07:48)
[2023-02-04] MEDS: SENNOSIDES 1 TAB TABLET 2 TAB PO ×2 (07:49→19:45)
[2023-02-05] MEDS: LEVOTHYROXINE 25 MCG TABLET 137 MCG PO (07:17)
[2023-02-05] MEDS: SENNOSIDES 1 TAB TABLET 2 TAB PO ×2 (07:17→19:41)
[2023-02-06] MEDS: LEVOTHYROXINE 25 MCG TABLET 137 MCG PO (07:27)
[2023-02-06] MEDS: SENNOSIDES 1 TAB TABLET 2 TAB PO ×2 (07:27→19:39)
--- NOTE | 2023-02-07 02:02 | PC.NURSE ---
WEEKLY CHARTING - WEEK 4: COMMUNICATION, HEARING/VISION,COGNITION, BEHAVIORS Vital signs reviewed, resident is still getting low blood pressure, will continue to monitor and update provider as needed. Temporary and comprehensive care plan reviewed - no change. No behaviors documented in the last 30 days, not currently on any psychotropic medications. Resident is able to communicate needs effectively. Staff anticipate needs as well. Hearing is moderately impaired. Staff adjust voice as needed. Visual deficit is corrected with glasses. Moderate cognitive impairment related to dementia. All medications administered by licensed nurse. Health condition currently stable.
--- NOTE | 2023-02-07 07:07 | PC.NURSE ---
Weekly Charting- Week 4: Vital signs reviewed- resident continues to have chronic low blood pressure values though providers are aware of this. Nursing to encourage fluids as tolerated, continue to monitor vital signs as ordered and update provider with concerns noted. Temporary and comprehensive care plans reviewed. New addition to temporary care plan on 02/01/23: Wound on left great toe re-opened. Goal is to heal wound and protect from further opening by applying Bacitracin and band-aid for wound care. No psychotropic medications used within the past month. Resident has only had one documented behavior noted within the last month in which he was refusing to elevate lower extremities to help decrease edema to bilateral feet. SURGICAL COORDINATOR wrote order to start Tubigrips to bilateral lower extremities on 01/23/23. Vision impairment is corrected with glasses. Moderate hearing impairment with staff adjusting tone and volume of voice PRN. Resident has moderate cognitive impairment at baseline related to progressive dementia. He is able to make needs known by use of call light though staff also anticipate needs. All medications are administered by licensed nurse with no adverse effects noted. No changes in chronic health conditions.
[2023-02-07] MEDS: SENNOSIDES 1 TAB TABLET 2 TAB PO ×2 (07:23→19:48)
[2023-02-07] MEDS: LEVOTHYROXINE 25 MCG TABLET 137 MCG PO (07:23)
[2023-02-07 09:48] VITALS: BMI 61.3
[2023-02-07 10:20] VITALS: BP 90/60; PULSE 74; RESP 18; TEMP 36.2; O2SAT 96
--- NOTE | 2023-02-07 12:49 | PC.NURSE ---
Wound intervention: Resident wound on his left toe has heal ,left only a small scab. Wound intervention completed.
[2023-02-08] MEDS: LEVOTHYROXINE 25 MCG TABLET 137 MCG PO (07:01)
[2023-02-08] MEDS: SENNOSIDES 1 TAB TABLET 2 TAB PO ×2 (07:01→19:32)
[2023-02-09] MEDS: LEVOTHYROXINE 25 MCG TABLET 137 MCG PO (06:58)
[2023-02-09] MEDS: SENNOSIDES 1 TAB TABLET 2 TAB PO ×2 (07:01→19:03)
--- NOTE | 2023-02-09 09:35 | PC.SPIRITC ---
I provided visit for connection and support.
[2023-02-10] MEDS: LEVOTHYROXINE 25 MCG TABLET 137 MCG PO (06:48)
[2023-02-10] MEDS: SENNOSIDES 1 TAB TABLET 2 TAB PO ×2 (07:04→19:35)
[2023-02-11] MEDS: LEVOTHYROXINE 25 MCG TABLET 137 MCG PO (07:41)
[2023-02-11] MEDS: SENNOSIDES 1 TAB TABLET 2 TAB PO ×2 (07:41→20:25)
--- NOTE | 2023-02-11 21:15 | PC.NURSE ---
Skin Concern: Bruising to right wrist measuring 10cm X 13cm noted. Resident indicated unaware when, or what caused it. Denies pain or burning, but C/O itching of the affected area. Will continue to monitor. Incident report will be completed.
--- NOTE | 2023-02-11 22:04 | PC.NURSE ---
Family Update: Resident's , Louann, notified and updated on 10 cm X 13 cm bruise to right wrist. Louann expressed appreciation for the update.
[2023-02-12] MEDS: LEVOTHYROXINE 25 MCG TABLET 137 MCG PO (06:58)
[2023-02-12] MEDS: SENNOSIDES 1 TAB TABLET 2 TAB PO ×2 (07:00→19:51)
[2023-02-13] MEDS: LEVOTHYROXINE 25 MCG TABLET 137 MCG PO (06:43)
[2023-02-13] MEDS: SENNOSIDES 1 TAB TABLET 2 TAB PO ×2 (07:11→20:05)
--- NOTE | 2023-02-13 10:06 | PC.PHA1 ---
REAL ESTATE SUBAGENT PHARMACIST'S MEDICATION REVIEW: MEDICATION MONITORING:No psychotropics. IRREGULARITY OR COMMENTS:No medication changes for January. No medication related issues after review of nursing notes. SUGGESTED COURSE OF ACTION TAKEN:No medication recommendations this review.
[2023-02-14 07:00] VITALS: BP 98/65; PULSE 70; RESP 18; TEMP 36.9; O2SAT 94; BMI 27.8
[2023-02-14] MEDS: SENNOSIDES 1 TAB TABLET 2 TAB PO ×2 (07:18→20:13)
[2023-02-14] MEDS: LEVOTHYROXINE 25 MCG TABLET 137 MCG PO (07:18)
[2023-02-15] MEDS: SENNOSIDES 1 TAB TABLET 2 TAB PO ×2 (07:31→19:20)
[2023-02-15] MEDS: LEVOTHYROXINE 25 MCG TABLET 137 MCG PO (07:31)
[2023-02-16] MEDS: LEVOTHYROXINE 25 MCG TABLET 137 MCG PO (07:26)
[2023-02-16] MEDS: SENNOSIDES 1 TAB TABLET 2 TAB PO ×2 (07:26→20:29)
[2023-02-17] MEDS: LEVOTHYROXINE 25 MCG TABLET 137 MCG PO (06:42)
[2023-02-17] MEDS: SENNOSIDES 1 TAB TABLET 2 TAB PO ×2 (07:02→19:09)
--- NOTE | 2023-02-17 21:08 | PC.NURSE ---
Resident sustained two 2 cm slit tears on R forearm. Resident states Not sure how these got here, but my arm itches like crazy. Injury presumed to be from scratching, as visible scratches seen proximally. Area cleansed, lotion applied to arm, bandaid applied to one of wounds that was actively bleeding. Intervention added
[2023-02-18] MEDS: LEVOTHYROXINE 25 MCG TABLET 137 MCG PO (06:58)
[2023-02-18] MEDS: SENNOSIDES 1 TAB TABLET 2 TAB PO ×2 (07:43→19:05)
--- NOTE | 2023-02-18 21:06 | PC.NURSE ---
Skin itch : Resident has some redness an itch on his right forearm. Lotion apply and staff to monitor if it resolves.
[2023-02-19] MEDS: SENNOSIDES 1 TAB TABLET 2 TAB PO ×2 (07:14→19:41)
[2023-02-19] MEDS: LEVOTHYROXINE 25 MCG TABLET 137 MCG PO (07:14)
--- NOTE | 2023-02-20 00:59 | PC.NURSE ---
Weekly Charting Week 1: Vital signs reviewed. Resident continues to have Low Blood Pressure as per his baseline. BALLOON PILOT is aware, Nursing to monitor weekly, Update Provider as needed. Recommended to encourage fluids intake. PAIN: No complain of Pain the past month. Currently on Acetaminophen 650mg Q6H PRN. Res able to communicate pain verbally and staff monitor non verbal signs of pain as needed. ADLs: Resident requires one assist with dressing, grooming and bathing. Res is able to do oral cares after set up. Is on regular, soft and bite sized texture thin liquids d/t coughing at meals. Diet well tolerated. Resident sit in feeder table as per request d/t decreased weight.
[2023-02-20] MEDS: LEVOTHYROXINE 25 MCG TABLET 137 MCG PO (07:22)
[2023-02-20] MEDS: SENNOSIDES 1 TAB TABLET 2 TAB PO ×2 (07:22→19:15)
--- NOTE | 2023-02-21 03:35 | PC.NURSE ---
WEEKLY CHARTING WEEK 1 : PAIN AND ADL`S Vital signs reviewed, Blood pressure low per resident baseline, provider aware. No complain of hypotensive symptoms. Resident is not on blood pressure medications ; It is recommended to push fluids. Continue with weekly VS monitoring. Comprehensive and temporary care plan reviewed, no changes made. Resident needs one assist with dressing, grooming and bathing. Encourage to participate as much as able. He can do oral care after set up. He is on regular diet, soft and bite sized texture , thin liquids, eats independently . No chewing or swallowing problems noted.? Pain: No complain of pain the past month. Resident can voice pain, has an order for Tylenol 650mg Q6h PRN.
[2023-02-21 06:32] VITALS: BMI 28.0
[2023-02-21] MEDS: LEVOTHYROXINE 25 MCG TABLET 137 MCG PO (06:53)
[2023-02-21 06:56] VITALS: BP 122/67; PULSE 58; RESP 18; TEMP 35.7; O2SAT 96
[2023-02-21] MEDS: SENNOSIDES 1 TAB TABLET 2 TAB PO ×2 (07:03→20:55)
--- NOTE | 2023-02-21 10:06 | PC.SOCIAL ---
Received a phone call from resident's , Louann, asking that referrals for placement be sent to [facility]. Faxed referrals to both facilities. Social work will follow up as needed.
--- NOTE | 2023-02-21 10:39 | PC.NURSE ---
Weekly Charting, Week 1 - ADL's: Comprehensive & temporary care plan reviewed, no changes made. Nothing added to temporary care plan. Resident needs one assist with dressing, grooming and bathing. Encourage to participate as much as able. Is able to do oral cares after set up. Independent with feeding. Is on regular, soft and bite sized texture thin liquids. No chewing/swallowing problems noted. Vital signs reviewed. BP's low per his baseline (chronic) noted by provider. No complain of hypotensive symptoms. Is on no BP medications.? Recommends push fluids. Continue with weekly VS monitoring. Pain: No complain of pain the past month. Has an order for Tylenol 650mg Q6h PRN and has used sparingly. Is able to tell when in pain & staff also anticipates.
--- NOTE | 2023-02-21 11:16 | PC.NURSE ---
Recert Visit: Resident seen by FABRIC WORKER SUPERVISORArturo. Orders reviewed and renewed of 75 days with changes. Orders: Discontinue Tylenol 650mg Q6H PRN, Vanicream BID PRN, & Nystatin powder BID PRN.
[2023-02-22] MEDS: LEVOTHYROXINE 25 MCG TABLET 137 MCG PO (07:09)
[2023-02-22] MEDS: SENNOSIDES 1 TAB TABLET 2 TAB PO ×2 (07:09→19:43)
--- NOTE | 2023-02-22 13:57 | PC.SPIRITC ---
Carlos expressed having a 'down day,' and talked about the care facility closing and the feelings that brings up for him, especially in relation to the unknown. I provided support, time to process feelings, and visit for connection.
[2023-02-23] MEDS: SENNOSIDES 1 TAB TABLET 2 TAB PO ×2 (07:44→19:34)
[2023-02-23] MEDS: LEVOTHYROXINE 25 MCG TABLET 137 MCG PO (07:44)
[2023-02-24] MEDS: SENNOSIDES 1 TAB TABLET 2 TAB PO ×2 (08:15→20:17)
[2023-02-24] MEDS: LEVOTHYROXINE 25 MCG TABLET 137 MCG PO (08:15)
[2023-02-25] MEDS: LEVOTHYROXINE 25 MCG TABLET 137 MCG PO (07:19)
[2023-02-25] MEDS: SENNOSIDES 1 TAB TABLET 2 TAB PO ×2 (07:19→19:51)
[2023-02-26] MEDS: LEVOTHYROXINE 25 MCG TABLET 137 MCG PO (07:12)
[2023-02-26] MEDS: SENNOSIDES 1 TAB TABLET 2 TAB PO ×2 (07:12→19:26)
[2023-02-27] MEDS: SENNOSIDES 1 TAB TABLET 2 TAB PO ×2 (07:19→19:22)
[2023-02-27] MEDS: LEVOTHYROXINE 25 MCG TABLET 137 MCG PO (07:19)
--- NOTE | 2023-02-28 01:20 | PC.NURSE ---
Weekly Charting Week 2: Mobility Vital signs reviewed. BP reading continue Low as per Res baseline. MACHINE OPERATOR CANE CUTTER is roca. Staff to check vitals weekly, update Provider as needed. Encourage fluids intake. Comprehensive and temporary care plan reviewed with no changes made. Resident is independent with bed/chair mobility, transfer and ambulation using 4ww walker. No alarms. Bilateral 1/4 side rails up at all times to aid with bed positioning. Fall: Resident has no fall in the past month. Remains a low fall risk according to assessment done on 12/06/22. Fall interventions: Call light within reach, bed in low position locked, gripper socks, walker at bedside, reminder to call for assist, staff to assist resident to toilet at 02:00. Resident is able to use the call light for assistance.
[2023-02-28 06:44] VITALS: BMI 27.8
[2023-02-28] MEDS: LEVOTHYROXINE 25 MCG TABLET 137 MCG PO (06:50)
[2023-02-28 06:56] VITALS: BP 125/72; PULSE 68; RESP 20; TEMP 35.7; O2SAT 96
[2023-02-28] MEDS: SENNOSIDES 1 TAB TABLET 2 TAB PO ×2 (07:03→19:10)
--- NOTE | 2023-02-28 07:42 | PC.NURSE ---
Weekly Charting, Week 2 - Mobility: Comprehensive and temporary care plan reviewed. No changes made, nothing added to temporary care plan. Resident is independent with transfers and ambulation in room with 4ww. Needs SBA of one, 4ww with ambulation in valera. Independent with bed/chair mobility. No wheelchair use. No alarms. Bilateral 1/4 side rails up at all times to aid with bed positioning. Vital signs reviewed, BP's per his baseline ( has chronic low BP'S). Resident no complain of hypotensive symptoms.? Continue with weekly vital signs monitoring & refer to provider as needed. Fall: No fall the past month. Remains a low fall risk according to assessment done on 12/06/22. Fall interventions: Call light within reach, bed in low position with brakes locked,? gripper socks, walker at bedside, reminder to call for assist, staff to assist resident to toilet @ 0200.
[2023-03-01] MEDS: LEVOTHYROXINE 25 MCG TABLET 137 MCG PO (06:48)
[2023-03-01] MEDS: SENNOSIDES 1 TAB TABLET 2 TAB PO ×2 (08:02→19:20)
[2023-03-02] MEDS: LEVOTHYROXINE 25 MCG TABLET 137 MCG PO (07:00)
[2023-03-02] MEDS: SENNOSIDES 1 TAB TABLET 2 TAB PO ×2 (07:30→19:19)
--- NOTE | 2023-03-02 10:15 | PC.SPIRITC ---
I provided visit for support and reassurance as Carlos expressed concerns over upcoming move.
[2023-03-03] MEDS: LEVOTHYROXINE 25 MCG TABLET 137 MCG PO (07:30)
[2023-03-03] MEDS: SENNOSIDES 1 TAB TABLET 2 TAB PO ×2 (07:30→19:02)
[2023-03-04] MEDS: SENNOSIDES 1 TAB TABLET 2 TAB PO ×2 (07:25→19:31)
[2023-03-04] MEDS: LEVOTHYROXINE 25 MCG TABLET 137 MCG PO (07:25)
[2023-03-05] MEDS: SENNOSIDES 1 TAB TABLET 2 TAB PO ×2 (07:26→19:06)
[2023-03-05] MEDS: LEVOTHYROXINE 25 MCG TABLET 137 MCG PO (07:26)
[2023-03-06] MEDS: LEVOTHYROXINE 25 MCG TABLET 137 MCG PO (06:46)
[2023-03-06] MEDS: SENNOSIDES 1 TAB TABLET 2 TAB PO ×2 (07:16→20:33)
--- NOTE | 2023-03-06 16:36 | PC.SOCIAL ---
Completed preadmission screening for resident to admit to [facility]. Confirmation #[id number].
--- NOTE | 2023-03-07 04:15 | PC.NURSE ---
WEEKLY CHARTING WEEK 3 TOILETING AND SKIN Vital signs reviewed?, no new recommendation. Comprehensive care plan reviewed, no changes made,nothing added to temporary care plan. Resident is continent of bowel and bladder and is independent with toileting. Independent, wears large pull up ; tyshawn cares and clothing management by staff. Skin: Pitting +1 edema on both lower extremities.
[2023-03-07] MEDS: LEVOTHYROXINE 25 MCG TABLET 137 MCG PO (06:41)
[2023-03-07 07:00] VITALS: BP 125/72; BP 99/30; PULSE 68; TEMP 35.7; O2SAT 96
[2023-03-07] MEDS: SENNOSIDES 1 TAB TABLET 2 TAB PO (07:06)
--- NOTE | 2023-03-07 07:23 | PC.NURSE ---
Weekly Charting, Week 3 - Toileting: Comprehensive and temporary care plan reviewed, no changes made. Nothing added to temporary care plan. Resident is continent of bowel and bladder. And is independent with toileting: pads, tyshawn cares and clothing management. Will call for assist as needed. Wears own undergarments. And on occasion a large pull up. Vital signs reviewed, BP's per his baseline, has chronic low BP's noted by providers.? Continue weekly VS monitoring and refer as needed. Skin: Has a callus on (L) gr toe covered by band aid for protection. Skin is routinely checked on bath day & PRN.
--- NOTE | 2023-03-07 09:58 | PC.NURSE ---
Discharge: Resident discharge to [facility] with staff via hospital vand/t to facility closure. All appropriate meds, medical records, personal belongings sent with.
--- NOTE | 2023-03-07 11:19 | PC.NURSE ---
MDS: Residents Quarterly MDS was closed partially completed. Resident discharged before due date.
--- NOTE | 2023-03-07 13:18 | PC.NURSE ---
RECAPITULATION NOTE: Resident was admitted to [facility] on 01/02/2022 . They have an extensive medical history including: Bullous pemphigoid, unspecified dementia, hypothyroid, consitpation, dermatitis, headache, weakness and rash and other non-specific skin eruption. They discharged today to [facility] for ongoing care needs since [facility] is closing. Resident was sent with discharge orders, remaining supply of medications, POLST/Advance directives, signed active med list, active care plan and MDS. They did not require any opiates or anxiolytic medications. Belongings were inventoried and signed. Discharge summary completed by provider. Resident remains DNR/DNI - comfort focused. Discharge orders and current MAR faxed to [facility] at [phone]. All questions answered.?
== END | DRG 757 ==
PROVIDERS: Family Medicine; Admitting Provider Family Medicine; Family Provider Nurse Practitioner Gerontology; PCP Family Medicine; Visit Provider Family Medicine
DX: F03.90 Unspecified dementia, unspecified severity, without behavioral disturbance, psychotic disturbance, mood disturbance, and anxiety (principal); R53.1 Weakness; L12.0 Bullous pemphigoid; E03.9 Hypothyroidism, unspecified; E78.5 Hyperlipidemia, unspecified; K59.00 Constipation, unspecified; L30.9 Dermatitis, unspecified; R51.9 Headache, unspecified; R21 Rash and other nonspecific skin eruption
CPT/HCPCS: 36415; 71045; 80048; 81001; 84443; 85025; 87426; 87635; 87798; 87804; 90471; 90662; 92610; A9270

== ENCOUNTER 2025-01-13 16:15 | Outpatient (REF) | payer MEDICARE, SELFPAY ==
--- OUTSIDE RECORDS SUMMARY | 2025-01-13 16:52 | XMS_ITS | Clinical Summary ---
Author Organization [facility] Address [address] [place] [id number] Care Team Providers Care Cloth Bleaching Supervisor Name Role Phone Latasha Jacobs MD Primary Care Provider [phone] Jerica Flowers RN Unavailable [phone] Barbi Delaney RN Unavailable [phone] Allergies No known active allergies Medications simvastatin (ZOCOR) 40 mg tablet Take 1 tablet by mouth at bedtime. 0 12/01/2015 Active levothyroxine (SYNTHROID) 150 mcg tablet Take 1 tablet by mouth before breakfast. 0 12/01/2015 Active aspirin (ECOTRIN) 81 mg enteric coated tablet Take 1 tablet by mouth once daily with a meal. 0 12/01/2015 Active lisinopril (PRINIVIL; ZESTRIL) 40 mg tablet Take 1 tablet by mouth once daily. 0 12/01/2015 Active Encounters Date Type Department Care Team Description 01/13/2025 Lab Requisition [facility] [phone] Marlen Morris NP 10/25/2024 Lab Requisition [facility] [phone] Marlen Morris NP from Last 3 Months Social History Tobacco Use Types Packs/Day Years Used Date Smoking Tobacco: Light Smoker Tobacco Cessation:Counseling Given: Yes Sex and Gender Information Value Date Recorded Sex Assigned at Not on file Legal Sex Male 3:05 PM CDT Gender Identity Not on file Sexual Orientation Not on file Obstetrics History Last Filed Vital Signs Vital Sign Reading Time Taken Comments Blood Pressure 143/76 12/01/2015 2:52 PM CDT Pulse 50 12/01/2015 2:52 PM CDT Temperature - - Respiratory Rate - - Oxygen Saturation 97% 12/01/2015 2:52 PM CDT Inhaled Oxygen Concentration - - Weight - - Height - - Body Mass Index - - Plan of Treatment Health Maintenance Due Date Last Done Comments Tdap 1946 Depression screening for age 12+ 1947 BMI (ht and wt on same day) for age 18+ 1953 Tetanus booster 1955 Pneumococcal series for age 50+ (1 of 1 - PCV) 1985 Zoster (shingles) series for age 50+ (1 of 2) 1985 RSV vaccine for adults or (1 - 1-dose 75+ series) 2010 COVID-19 vaccine series ( - season) 2024 Influenza Vaccine (Season Ended) 2025 Hepatitis B series for 19+ Aged Out N o longer eligible based on patient's age to complete this topic Procedures Procedure Name Priority Date/Time Associated Diagnosis Comments BASIC METABOLIC PANEL Routine 10/29/2024 7:50 AM CDT Hypotension, unspecified from Last 3 Months Results * (ABNORMAL) BASIC METABOLIC PANEL (10/29/2024 7:50 AM CDT) SODIUM 143 136 - 145 mmol/L 10/29/2024 8:54 AM [facility] POTASSIUM 4.9 3.5 - 5.1 mmol/L 10/29/2024 8:54 AM [facility] CHLORIDE 109(H) 98 - 107 mmol/L 10/29/2024 8:54 AM [facility] CO2,TOTAL 31(H) 22 - 29 mmol/L 10/29/2024 8:54 AM [facility] ANION GAP 3(L) 5 - 18 10/29/2024 8:54 AM [facility] GLUCOSE 94 70 - 99 mg/dL 10/29/2024 8:54 AM [facility] CALCIUM 9.5 8.8 - 10.4 mg/dL 10/29/2024 8:54 AM [facility] Comment: Reference ranges for this test were updated on 05/21/2024 to reflect our healthy population more accurately. Reference range changes are not retroactively applied to results, but previous results using the same methodology can be interpreted in the context of the new reference range. BUN 15 8 - 23 mg/dL 10/29/2024 8:54 AM T [facility] CREATININE 1.16 0.70 - 1.20 mg/dL 10/29/2024 8:54 AM T [facility] BUN/CREAT RATIO 13 10 - 20 8:54 AM [facility] eGFR 60(L) >90 mL/min/1. 73m2 10/29/2024 8:54 AM [facility] Comment:As of 2021, eG FR is calculated by the CKD-EPI creatinine equation without race adjustment. eGFR can be influenced by muscle mass, exercise, and diet. The reported eGFR is an estimation only and is only applicable if the renal function is stable. Blood BLOOD SPECIMEN / Unknown Venipuncture / Unknown 10/29/2024 7:50 AM CDT 10/29/2024 8:22 AM CDT us Marlen Morris NP CHEMISTRY Final Resul t [facility] [address] [place] [address] from Last 3 Months Insurance [facility] MEDICARE ADVANTAGE MR Care Teams Cloth Bleaching Supervisor Relationship Specialty Start Date End Date Latasha Jacobs MD [address] [place] [address] PCP - General Internal Medicine 11/18/15 Jerica Flowers RN [address] [id number] Cyber Incident Handler - [facility] Registered Nurse 05/12/21 Barbi Delaney RN [address] [id number] Cyber Incident Handler - [facility] Registered Nurse 04/16/21
[2025-01-13 18:20] LABS: Appearance Urine Clear (Clear); Bilirubin Urine Negative (Negative); Color Urine Yellow (Yellow); Glucose Urine Negative (Negative)
[2025-01-13 18:21] LABS: Blood Urine 2+ (Negative); Ketones Urine Trace (Negative); Leukocyte Esterase Urine Negative (Negative); Nitrite Urine Negative (Negative); Protein Urine Negative (Negative); Urobilinogen Urine 0.2 (0.2-1.0); pH Urine 5.5 (5.0-8.5)
[2025-01-13 18:47] LABS: RBC Urine 25-50 (0-2); WBC Urine 0-2 (0-5)
--- OUTSIDE RECORDS SUMMARY | 2025-01-14 02:22 | XMS_ITS | Clinical Summary ---
Author Organization [facility] Address [address] [place] [address] Care Team Providers Care Graphics Edit Technician Name Role Phone Latasha Jacobs MD Primary Care Provider [phone] Jerica Flowers RN Unavailable [phone] Barbi Delaney RN Unavailable [phone] Allergies No known active allergies Medications [...] Department Care Team Description 01/13/2025 Lab Requisition [facility] [phone] Marlen Morris NP 10/25/2024 Lab Requisition [facility] [phone] Marlen Morris NP from Last 3 Months [...] 136 - 145 mmol/L 10/29/2024 8:54 AM [facility] POTASSIUM 4.9 3.5 - 5.1 mmol/L 10/29/2024 8:54 AM [facility] CHLORIDE 109(H) 98 - 107 mmol/L 10/29/2024 8:54 AM [facility] CO2,TOTAL 31(H) 22 - 29 mmol/L 10/29/2024 8:54 AM [facility] ANION GAP 3(L) 5 - 18 10/29/2024 8:54 AM [facility] GLUCOSE 94 70 - 99 mg/dL 10/29/2024 8:54 AM [facility] CALCIUM 9.5 8.8 - 10.4 mg/dL 10/29/2024 8:54 AM T [facility] Comment: Reference ranges for this test were updated on 05/21/2024 to reflect our healthy population more accurately. Reference range changes are not retroactively applied to results, but previous results using the same methodology can be interpreted in the context of the new reference range. BUN 15 8 - 23 mg/dL 10/29/2024 8:54 AM T [facility] CREATININE 1.16 0.70 - 1.20 mg/dL 10/29/2024 8:54 AM T [facility] BUN/CREAT RATIO 13 10 - 20 8:54 AM [facility] eGFR 60(L) >90 mL/min/1. 73m2 10/29/2024 8:54 AM [facility] Comment:As of 2021, eG FR is [...] Marlen Morris NP CHEMISTRY Final Resul t [facility] [address] [place] [address] from Last 3 Months Insurance [facility] MEDICARE ADVANTAGE MR Care Teams Graphics Edit Technician Relationship Specialty Start Date End Date Latasha Jacobs MD [address] [place] [address] PCP - General Internal Medicine 11/18/15 Jerica Flowers RN [address] [phone] Office Coordinator Receptionist - [facility] Registered Nurse 05/12/21 Barbi Delaney RN [address] [id number] Office Coordinator Receptionist - [facility] Registered Nurse 04/16/21
== END 2025-01-13 16:16 | disposition home or self-care (01) ==
LOC: NPINS 16:15
PROVIDERS: PCP Internal Medicine; Visit Provider Family Medicine
DX: R41.0 Disorientation, unspecified (principal)
CPT/HCPCS: 81001; 81003; 87086